=== PATIENT | female | born 1965 | race Caucasian/White ===

== ENCOUNTER 2018-03-27 10:31 | Emergency (ER) | payer SELFPAY ==
[2018-03-27] MEDS ORDERED: ALBUTEROL 2.5 MG/3 ML NEB SOL ONE (11:30)
[2018-03-27] MEDS ORDERED: IPRATROPIUM BROM 0.5MG/2.5ML ONE (11:30)
[2018-03-27] MEDS ORDERED: HYDROCODONE/CHLORPHEN 5 ML/OSYR ONE (11:31)
--- NOTE | 2018-03-27 12:38 | ER ---
Nurse's Notes [facility] Name: Melba Henry Age: 53 yrs Sex: Female : 1965 Arrival Date: 03/27/2018 Time: 10:34 Bed 7 Private MD: Diagnosis: Chronic sinusitis Presentation: 03/27 10:48 Presenting complaint: Patient states: Cough and shortness of breath for the past year. aj1 States that she has seen several doctors and had sinus surgery, but none of it has helped. When she woke up this morning she felt like her lungs were burning and felt more short of breath than usual. Transition of care: patient was not received from another setting of care. Onset of symptoms was 2016. Risk Assessment: Do you want to hurt yourself or someone else? Patient reports no desire to harm self or others. Initial Sepsis Screen: Does the patient meet any 2 criteria? No. Patient's initial sepsis screen is negative. Does the patient have a suspected source of infection? No. Patient's initial sepsis screen is negative. Care prior to arrival: None. 10:48 Method Of Arrival: Ambulatory aj1 10:48 Acuity: MEGHNA 3 aj1 Triage Assessment: 10:54 General: Appears in no apparent distress. uncomfortable, Behavior is calm, cooperative, aj1 appropriate for age. Pain: Denies pain. Neuro: Level of Consciousness is awake, alert, obeys commands, Speech is normal. Cardiovascular: Patient's skin is warm and dry. Respiratory: Reports shortness of breath cough that is persistent for the past year Airway is patent Respiratory effort is even, unlabored, Respiratory pattern is regular, symmetrical, Onset: The symptoms/episode began/occurred one year ago. Derm: Skin is pink, warm \T\ dry. normal. Musculoskeletal: Circulation, motion, and sensation intact. 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 - Social history:: Smoking status: Patient/guardian denies using tobacco. - Ebola Screening: : Patient denies travel to an Ebola-affected area in the 21 days before illness onset. Screenin:15 Abuse screen: Denies threats or abuse. Denies injuries from another. Nutritional hb screening: No deficits noted. Tuberculosis screening: No symptoms or risk factors identified. Fall Risk None identified. Assessment: 11:08 General: Appears in no apparent distress. Behavior is calm, cooperative, agitated, sm4 Smells of Reports Denies. Pain: Denies pain. Neuro: No deficits noted. Cardiovascular: No deficits noted. Respiratory: Reports shortness of breath at rest on exertion cough that is Airway is patent Trachea midline Respiratory effort is unlabored, Respiratory pattern is regular, Sputum is thick, Breath sounds with wheezes mild wheezing noted throughout all lobes w/ expiration. GI: No deficits noted. : No deficits noted. EENT: Reports nasal congestion Denies Parent/caregiver reports the patient having. Derm: No deficits noted. Musculoskeletal: No deficits noted. 11:30 Reassessment: Patient appears in no apparent distress at this time. No changes from sv previously documented assessment. Patient and/or family updated on plan of care and expected duration. Pain level reassessed. Patient is alert, oriented x 3, equal unlabored respirations, skin warm/dry/pink. Respiratory: Respiratory effort is even, unlabored, Respiratory pattern is regular, symmetrical, Breath sounds with wheezes bilaterally. 11:35 Reassessment: Box of kleenex given to pt per request. sv 12:17 Reassessment: Patient appears in no apparent distress at this time. No changes from sv previously documented assessment. Patient and/or family updated on plan of care and expected duration. Pain level reassessed. Patient is alert, oriented x 3, equal unlabored respirations, skin warm/dry/pink. Patient states symptoms have not improved. Vital Signs: 10:54 BP 106 / 77; Pulse 87; Resp 18; Temp 98.5(TE); Pulse Ox 97% on R/A; Weight 54.43 kg aj1 (R); Height 5 ft. 1 in. (154.94 cm) (R); Pain 0/10; 12:17 BP 107 / 71; Pulse 86; Resp 18; Pulse Ox 97% on R/A; sv 10:54 Body Mass Index 22.67 (54.43 kg, 154.94 cm) aj1 ED Course: 10:34 Patient arrived in ED. jb7 10:51 Triage completed. aj1 10:54 Arm band placed on Patient placed in an exam room. aj1 11:00 Patient has correct armband on for positive identification. Placed in gown. Bed in low hb position. Call light in reach. Side rails up X 1. 11:06 Fernando Escobar NP is PHCP. pm1 11:06 Sunny Handley MD is Attending Physician. pm1 11:32 Charo Bai, DAVID is Primary Nurse. sv 11:32 Initial Neb Treatment Given as ordered Patient was instructed and evaluated on sv procedure Patient tolerated procedure well without adverse effect. 11:37 Awaiting for x-ray. sv 12:13 X-ray completed. Patient tolerated procedure well. Patient moved back from radiology. kw 12:14 Chest Pa And Lat (2 Views) XRAY In Process Unspecified. EDMS 12:15 Patient moved back from radiology. sv 13:04 No provider procedures requiring assistance completed. Patient did not have IV access hb during this emergency room visit. Administered Medications: 11:32 Drug: Albuterol 2.5 mg Route: Inhalation; hb 11:32 Drug: AtroVENT Aerosol 0.5 mg Route: Inhalation; hb 11:32 Drug: Tussionex Pennkinetic ER 5 ml Route: PO; hb 11:52 Follow up: Response: No adverse reaction sv Outcome: 12:37 Discharge ordered by MD. pm1 13:04 Discharged to home ambulatory, with significant other. hb 13:04 Condition: stable 13:04 Discharge instructions given to patient, significant other, Instructed on discharge instructions, follow up and referral plans. medication usage, Demonstrated understanding of instructions, follow-up care, medications, Prescriptions given X 2. 13:04 Patient left the ED. hb Signatures: Dispatcher [employer] EDMS Selma Lemon RN RN aj1 Charo Bai, DAVID HERNANDEZ Sharmin Perez Fernando Escobar NP TAXATION CONSULTANT pm1 Montse Gregorio RN RN Robby Silver jb7 Iraj Douglass RN RN sm4
--- NOTE | 2018-03-27 12:38 | EDPHYS ---
Physician Documentation [facility] Name: Melba Henry Age: 53 yrs Sex: Female : 1965 Arrival Date: 03/27/2018 Time: 10:34 Bed 7 Private MD: ED Physician Sunny Handley HPI: 03/27 12:00 This 53 yrs old Female presents to ER via Ambulatory with complaints of pm1 Breathing Difficulty. 12:00 The patient has shortness of breath at rest. Onset: The symptoms/episode began/occurred pm1 1 year(s) ago. Duration: The symptoms are continuous. The patient's shortness of breath has no apparent modifying factors. Associated signs and symptoms: Pertinent positives: non-productive cough, productive cough, sinus congestion, Pertinent negatives: chest pain, nausea, vomiting. Severity of symptoms: in the emergency department the symptoms are worse. The patient has experienced similar episodes in the past, chronically. The patient has been recently seen by a physician: ENT about 1 month ago, cleared sinuses with procedure and patient was without any symptoms for 2 weeks. However symptoms returned and have worsened for the past two weeks. 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 - Social history:: Smoking status: Patient/guardian denies using tobacco. - Ebola Screening: : Patient denies travel to an Ebola-affected area in the 21 days before illness onset. ROS: 12:00 Constitutional: Negative for fever, chills, and weight loss, Eyes: Negative for injury, pm1 pain, redness, and discharge. 12:00 Neck: Negative for injury, pain, and swelling, Cardiovascular: Negative for chest pain, palpitations, and edema. 12:00 Abdomen/GI: Negative for abdominal pain, nausea, vomiting, diarrhea, and constipation, Back: Negative for injury and pain, : Negative for injury, bleeding, discharge, and swelling, MS/Extremity: Negative for injury and deformity, Skin: Negative for injury, rash, and discoloration, Neuro: Negative for headache, weakness, numbness, tingling, and seizure. 12:00 ENT: Positive for sinus congestion, sinus pain, Negative for sore throat, difficulty swallowing, difficulty handling secretions. 12:00 Respiratory: Positive for cough, Negative for shortness of breath, sputum production, wheezing. Exam: 12:00 Constitutional: This is a well developed, well nourished patient who is awake, alert, pm1 and in no acute distress. Head/Face: Normocephalic, atraumatic. Eyes: Pupils equal round and reactive to light, extra-ocular motions intact. Lids and lashes normal. Conjunctiva and sclera are non-icteric and not injected. Cornea within normal limits. Periorbital areas with no swelling, redness, or edema. 12:00 Neck: Trachea midline, no thyromegaly or masses palpated, and no cervical lymphadenopathy. Supple, full range of motion without nuchal rigidity, or vertebral point tenderness. No Meningismus. Chest/axilla: Normal chest wall appearance and motion. Nontender with no deformity. No lesions are appreciated. Cardiovascular: Regular rate and rhythm with a normal S1 and S2. No gallops, murmurs, or rubs. Normal PMI, no JVD. No pulse deficits. Respiratory: Lungs have equal breath sounds bilaterally, clear to auscultation and percussion. No rales, rhonchi or wheezes noted. No increased work of breathing, no retractions or nasal flaring. Abdomen/GI: Soft, non-tender, with normal bowel sounds. No distension or tympany. No guarding or rebound. No evidence of tenderness throughout. Back: No spinal tenderness. No costovertebral tenderness. Full range of motion. Skin: Warm, dry with normal turgor. Normal color with no rashes, no lesions, and no evidence of cellulitis. MS/ Extremity: Pulses equal, no cyanosis. Neurovascular intact. Full, normal range of motion. 12:00 ENT: External ear(s): are unremarkable, Ear canal(s): are normal, TM's: are normal, Nose: nasal drainage, and is seen coming from both nares, that is clear, Mouth: is normal. 12:00 Neuro: Orientation: is normal, Motor: is normal, Sensation: is normal, no obvious gross deficits. Vital Signs: 10:54 BP 106 / 77; Pulse 87; Resp 18; Temp 98.5(TE); Pulse Ox 97% on R/A; Weight 54.43 kg aj1 (R); Height 5 ft. 1 in. (154.94 cm) (R); Pain 0/10; 12:17 BP 107 / 71; Pulse 86; Resp 18; Pulse Ox 97% on R/A; sv 10:54 Body Mass Index 22.67 (54.43 kg, 154.94 cm) [facility] MDM: 11:07 Patient medically screened. pm1 12:33 Data reviewed: vital signs. Data interpreted: Pulse oximetry: on room air is 97 %. pm1 Interpretation: normal. Counseling: I had a detailed discussion with the patient and/or guardian regarding: the historical points, exam findings, and any diagnostic results supporting the discharge/admit diagnosis, radiology results, the need for outpatient follow up, to return to the emergency department if symptoms worsen or persist or if there are any questions or concerns that arise at home. 12:33 ED course: Patient currently taking medrol dose corina from ENT without improvement. Will pm1 give the augmentin for sinusitis and patient will follow up with ENT. 03/27 11:24 Order name: Chest Pa And Lat (2 Views) XRAY; Complete Time: 12:55 pm1 Administered Medications: 11:32 Drug: Albuterol 2.5 mg Route: Inhalation; hb 11:32 Drug: AtroVENT Aerosol 0.5 mg Route: Inhalation; hb 11:32 Drug: Tussionex Pennkinetic ER 5 ml Route: PO; hb 11:52 Follow up: Response: No adverse reaction sv Disposition: 17:19 Co-signature as Attending Physician, Sunny Handley MD I agree with the assessment and kdr plan of care. Disposition: 03/27/18 12:37 Discharged to Home. Impression: Chronic sinusitis. - Condition is Stable. - Discharge Instructions: Sinusitis, Adult. - Prescriptions for Augmentin 875- 125 mg Oral Tablet - take 1 tablet by ORAL route every 12 hours for 10 days; 20 tablet. Guaifenesin AC 10- 100 mg/5 mL Oral Liquid - take 10 milliliter by ORAL route every 4 hours As needed; 240 milliliter. - Medication Reconciliation Form, Thank You Letter, Antibiotic Education, Prescription Opioid Use form. - Follow up: Emergency Department; When: As needed; Reason: Worsening of condition. Follow up: Private Physician; When: 2 - 3 days; Reason: Recheck today's complaints, Continuance of care, Re-evaluation by your physician. - Problem is new. - Symptoms have improved. Signatures: Dispatcher [employer] EDMS Selma Lemon RN RN aj1 Sunny Handley MD MD kdr Marinas, Patrick, NP LIBRARY HISTORIAN pm1 Montse Gregorio RN RN Charo Bai RN sv Corrections: (The following items were deleted from the chart) 12:38 12:37 03/27/2018 12:37 Discharged to Home. Impression: Acute sinusitis. Condition is pm1 Stable. Forms are Medication Reconciliation Form, Thank You Letter, Antibiotic Education, Prescription Opioid Use. Follow up: Emergency Department; When: As needed; Reason: Worsening of condition. Follow up: Private Physician; When: 2 - 3 days; Reason: Recheck today's complaints, Continuance of care, Re-evaluation by your physician. Problem is new. Symptoms have improved. pm1 13:04 12:38 03/27/2018 12:37 Discharged to Home. Impression: Chronic sinusitis. Condition is hb Stable. Forms are Medication Reconciliation Form, Thank You Letter, Antibiotic Education, Prescription Opioid Use. Follow up: Emergency Department; When: As needed; Reason: Worsening of condition. Follow up: Private Physician; When: 2 - 3 days; Reason: Recheck today's complaints, Continuance of care, Re-evaluation by your physician. Problem is new. Symptoms have improved. pm1
--- NOTE | 2018-03-27 12:39 | RAD REPORT ---
EXAM DESCRIPTION: RAD - Chest Pa And Lat (2 Views) - 03/27/2018 12:14 pm CLINICAL HISTORY: COUGH Chest pain. COMPARISON: Chest Pa And Lat (2 Views) dated 10/03/2017; CHEST SINGLE VIEW dated 03/12/2014; CHEST SIN GLE VIEW dated 06/23/2009 FINDINGS: The lungs are clear. The heart is normal in size. No displaced fractures. IMPRESSION: No acute or concerning finding suspected.
== END 2018-03-27 13:04 | disposition home or self-care (01) ==
LOC: ER 10:31
DX: J32.9 Chronic sinusitis, unspecified (principal); R09.81 Nasal congestion; E03.9 Hypothyroidism, unspecified; R05 Cough
CPT/HCPCS: 71046; 99284

== ENCOUNTER 2018-10-21 07:38 | Day surgery (SDC) | payer OTHER ==
[2018-10-21] MEDS ORDERED: Ringers Lactate 1,000 ML IV ONE (08:14)
[2018-10-21] MEDS ORDERED: PROPOFOL 200 MG/20 ML VIAL IV ONE (09:18)
[2018-10-21] MEDS ORDERED: LIDOCAINE 1% MPF 5 ML VIAL ONE ×2 (09:18→09:34)
[2018-10-21] MEDS ORDERED: ONDANSETRON 4 MG/2 ML VIAL ONE (09:37)
--- NOTE | 2018-10-23 03:41 | OP ---
Surgeon: Rayo Calderón MD Procedure To Be Performed: Colonoscopy. Performing Physician: Rayo Calderón M.D. Indication For Procedure: Modification of bowel habits, diarrhea, lower abdominal pain. Plan For Anesthesia: Monitored anesthesia care. Complexity: Average. Technique: After obtaining informed consent from the patient and explaining risks and complications, which include, but are not limited to bleeding, infection, perforation, and anesthesia complication, the patient was placed in a left lateral position and sedation was given. From then on, a digital r ectal exam was performed. From then on, the scope was advanced into the rectum and carefully guided up till the terminal ileum. The cecum was identified by the appendiceal orifice and ileocecal valve. The scope was gradually withdrawn while carefully examining the mucosa. Scope withdrawal time was 14 minutes. Quality of prep according to Huntington prep score was 2 + 2 + 2, which is equal to 6/9, chuy r. Findings: The terminal ileum appeared normal. Few diverticula seen in the sigmoid. In the rectum, a diminutive polyp was seen. This was removed with cold forceps. Retroflexion revealed internal hem orrhoids grade 1. No other significant colonic pathology seen. Random biopsies were taken to rule o ut microscopic colitis. Plan: 1.Await pathology results. 2.Follow up in the GI Clinic. 3.EGD with small bowel biopsies as planned. US/MODL Voice ID: [id number] Report ID: [id number]
== END 2018-10-21 10:32 | disposition home or self-care (01) ==
LOC: ENDO 07:38
PROVIDERS: ATTEND Internal Medicine Gastroenterology
PROC: 0DBE8ZX Excision of Large Intestine, Via Natural or Artificial Opening Endoscopic, Diagnostic (ICD-10-PCS; 2018-10-21)
PROC: 0DBP8ZX Excision of Rectum, Via Natural or Artificial Opening Endoscopic, Diagnostic (ICD-10-PCS; principal; 2018-10-21 08:45)
DX: K62.1 Rectal polyp (principal); K57.30 Diverticulosis of large intestine without perforation or abscess without bleeding; K64.0 First degree hemorrhoids; K21.9 Gastro-esophageal reflux disease without esophagitis; Z87.891 Personal history of nicotine dependence; Z79.899 Other long term (current) drug therapy
CPT/HCPCS: 88305; J2405; J2704

== ENCOUNTER 2018-10-24 12:53 | Day surgery (SDC) | payer OTHER ==
[2018-10-24] MEDS ORDERED: Ringers Lactate 1,000 ML IV ONE (13:07)
[2018-10-24] MEDS ORDERED: LIDOCAINE 1% MPF 5 ML VIAL ONE (14:51)
[2018-10-24] MEDS ORDERED: PROPOFOL 200 MG/20 ML VIAL IV ONE ×2 (14:51)
[2018-10-24] MEDS ORDERED: ONDANSETRON 4 MG/2 ML VIAL ONE (14:52)
--- NOTE | 2018-10-25 03:00 | OP ---
Date of Procedure: 10/24/2018 Surgeon: Rayo Calderón MD Procedure Performed: Esophagogastroduodenoscopy. Performing Physician: Rayo Calderón M.D. Indication For Procedure: Evaluate for chronic reflux, modification of bowel habits, and chronic cou gh, which is suspected to be related to severe acid reflux disease. Plan For Anesthesia: Monitored anesthesia care. Complexity: Average. Technique: After obtaining informed consent from the patient and explaining risks and complications which include, but are not limited to bleeding, infection, perforation, and anesthesia complication, the patient was placed in the left lateral position and sedation was given. From then on, the scope was advanced into the mouth and carefully guided up to the third portion of the duodenum. After the completion of examination, scope and equipment were withdrawn and procedure was terminated in a safe manner. Findings: Esophagus: From proximal to distal esophagus, no abnormality was seen. There was no evid ence of esophagitis at all. No narrowing appreciated. The distal esophagus was completely normal. No evidence of significant hiatal hernia. The Z-line was regular at 37 cm without any evidence of er osive damage to the distal esophagus. Esophageal biopsies were taken as well. Stomach: Body appear ed normal. Minimal patchy erythema was seen in the antrum. Antral and body biopsies were taken. Du odenum: The bulb, second, and third portion appeared normal. Small bowel biopsies were taken due to absence of other pathology into the bowels to rule out celiac disease. Complications: None. Tolerance To Anesthesia: Excellent. Postoperative Diagnoses: Minimal gastritis. No evidence of erosive acid reflux disease. Plan: 1.Await pathology results. 2.Follow up with ENT and allergy/water engineer. 3.Continue PPI at current dose. 4.Returned to GI clinic in 2 weeks. US/MODL Voice ID: [id number] Report ID: [id number]
== END 2018-10-24 15:35 | disposition home or self-care (01) ==
LOC: OR 12:53
PROVIDERS: ATTEND Internal Medicine Gastroenterology
PROC: 0DB78ZX Excision of Stomach, Pylorus, Via Natural or Artificial Opening Endoscopic, Diagnostic (ICD-10-PCS; 2018-10-24)
PROC: 0DB58ZX Excision of Esophagus, Via Natural or Artificial Opening Endoscopic, Diagnostic (ICD-10-PCS; 2018-10-24)
PROC: 0DB98ZX Excision of Duodenum, Via Natural or Artificial Opening Endoscopic, Diagnostic (ICD-10-PCS; principal; 2018-10-24 14:00)
DX: K29.80 Duodenitis without bleeding (principal); K29.50 Unspecified chronic gastritis without bleeding; K21.0 Gastro-esophageal reflux disease with esophagitis; Z87.891 Personal history of nicotine dependence; Z79.899 Other long term (current) drug therapy
CPT/HCPCS: 88305; 88312; J2405; J2704

== ENCOUNTER 2018-11-18 02:42 | Emergency (ER) | payer OTHER ==
--- OUTSIDE RECORDS SUMMARY | 2018-11-18 02:45 | XMS REPORT | Clinical Summary ---
:1965 Author Organization [facility] Address [address] [place] [address] Care Team Providers Name Role Phone Dante Murrieta MD Primary Care Provider Allergies Active Allergy Reactions Severity Noted Date Comments Ciprofloxacin Other (See Comments) 11/06/2018 "SKIN CRAWLING AND INABILITY TO RELAX" Medications Medication Sig Dispensed Refills Start Date End Date Status albuterol INHALE THREE (3) 6 10/31/2018 Active (ACCUNEB) 2.5 mg MLS VIA NEBULIZER /3 mL (0.083 %) EVERY FOUR (4) nebulizer solution HOURS NEEDED FOR WHEEZING OR SHORTNESS OF BREATH. PROVENTIL HFA 90 INHALE TWO (2) 6 10/31/2018 Active mcg/actuation PUFF(S) BY MOUTH inhaler EVERY SIX HOURS NEEDED FOR WHEEZING OR SHORTNESS OF BREATH. fluticasone INSTILL TWO (2) 6 10/31/2018 Active (FLONASE) 50 SPRAY(S) INTO mcg/actuation EACH NOSTRIL ONCE nasal spray A DAY. LORAZepam (ATIVAN) TAKE ONE (1) 2 10/31/2018 Active 2 MG tablet TABLET(S) BY MOUTH TWICE A DAY NEEDED FOR ANXIETY. pantoprazole TAKE ONE (1) 1 11/03/2018 Active (PROTONIX) 40 MG TABLET(S) BY EC tablet MOUTH ONCE A DAY. DM/p-ephed/acetami Take by mouth 0 Active noph/doxylam nightly. (NYQUIL D ORAL) famotidine Take 20 mg by 0 Active (PEPCID) 20 MG mouth daily. tablet ascorbate calcium Take 1 tablet by 0 Active (VITAMIN C ORAL) mouth daily. multivitamin Take 1 tablet by 0 Active (THERAGRAN) tablet mouth daily. acetaminophen-code Take 1 tablet by 40 tablet 0 11/17/2018 Active ine (TYLENOL WITH mouth every 4 9 CODEINE #3) 300-30 (four) hours as mg per tablet needed for mild pain for up to 7 days. cephalexin Take 1 capsule 30 capsule 0 11/17/2018 Active (KEFLEX) 500 MG (500 mg total) by 9 capsule mouth 3 (three) times a day for 10 days. promethazine Insert 1 10 suppository 0 11/17/2018 Active (PHENERGAN) 25 MG suppository (25 9 suppository mg total) into the rectum every 6 (six) hours as needed for nausea or vomiting for up to 30 days. Active Problems No known active problems Encounters Date Type Specialty Care Team Description 11/17/2018 Surgery General Surgery Mary Beth Alaniz BILATERAL MD [facility] CAPSULECTOMY WITH IMPLANT REMOVAL, BILATERAL MASTOPEXY 11/17/2018 Anesthesia Event General Surgery Ruth Lamb NP 11/17/2018 Hospital Encounter General Surgery Mary Beth Alaniz Encounter for MD [facility] cosmetic surgery 11/06/2018 Pre-Admit Testing Pre-Admission Mary Beth Alaniz Preop testing Appointment Testing MD [facility] (Primary Dx) after 11/17/2017 Family History Medical History Relation Name Comments Dementia Father Parkinsonism Father Heart disease Mother Stroke Mother Thyroid disease Mother Relation Name Status Comments Father Mother Alive Social History Tobacco Use Types Packs/Day Years Used Date Former Smoker Cigarettes 1 1979 - 1996 Smokeless Tobacco: Never Used Alcohol Use Drinks/Week oz/Week Comments No Alcohol Habits Answer Date Recorded How often do you have a drink containing alcohol? Never 11/06/2018 How many drinks containing alcohol do you have on a typical Not asked day when you are drinking? How often do you have six or more drinks on one occasion? Not asked Sex Assigned at Date Recorded Not on file Job Start Date Occupation Industry Not on file Not on file Not on file Travel History Travel Start Travel End No recent travel history available. Last Filed Vital Signs Vital Sign Reading Time Taken Blood Pressure 112/60 11/17/2018 12:45 PM [facility]NA[facility] Pulse 98 11/17/2018 12:45 PM MA[facility] Temperature 36.6 C (97.8 F) 11/17/2018 12:45 PM MANAGER EMS Respiratory Rate 15 11/17/2018 1:15 PM MANAGER EMS Oxygen Saturation 96% 11/17/2018 12:45 PM MANAGER EMS Inhaled Oxygen Concentration - - Weight 46.7 kg (102 lb 16 oz) 11/06/2018 1:29 PM MANAGER EMS Height 154.9 cm (5' 1") 11/06/2018 1:29 PM MANAGER EMS Body Mass Index 19.46 11/06/2018 1:29 PM MANAGER EMS Plan of Treatment Health Maintenance Due Date Last Done Comments CERVICAL CANCER SCREENING 1988 BREAST CANCER SCREENING 2017 COLON CANCER SCREENING 2017 SHINGLES VACCINES (#1) 2017 INFLUENZA VACCINE 04/16/2018 Procedures Procedure Name Priority Date/Time Associated Diagnosis Comments OK AN ELECTIVE Routine 11/17/2018 8:30 AM ENDOTRACHEAL AIRWAY MANAGER EMS Procedure Note - Murray Camargo CRNA - 11/17/2018 8:30 AM MANAGER EMS Airway Date/Time: 11/17/2018 8:30 AM Performed by: Murray Camargo CRNA Authorized by: Calderon Quinn MD Location: OR Urgency: Elective Difficult Airway: No Anesthesiologist: Calderon Quinn MD Resident/PLATE SENSITIZER/AA: Murray Camargo CRNA Performed by: resident/KAREN/AA Preoxygenated with 100% O2: Yes C-spine Precautions Maintained Throughout: Yes Mask Ventilation: Easy mask Final Airway Type: Endotracheal airway Final Endotracheal Airway: ETT Cuffed: Yes Technique Used: Direct laryngoscopy Insertion Site: Oral Blade Type: Ochoa Laryngoscope Blade/Videolaryngoscope Blade Size: 2 ETT Size (mm): 7.0 Cuff at minimum occlusion pressure: Yes Measured from: Lips ETT to Lips (cm): 21 Placement Verified by: CO2 detection, direct visualization and equal breath sounds Laryngoscopic view: Grade I - full view of glottis Rapid Sequence Induction (RSI): No Modified RSI: No Number of Attempts at Approach: 1 POC GLUCOSE Routine 11/17/2018 6:56 AM Results for this MANAGER EMS procedure are in the results section. ESTIMATED GFR Routine 11/06/2018 2:35 PM Results for this MANAGER EMS procedure are in the results section. BASIC METABOLIC PANEL Routine 11/06/2018 2:35 PM Preop testing Results for this MANAGER EMS procedure are in the results section. HC COMPLETE BLD COUNT Routine 11/06/2018 2:35 PM Preop testing Results for this W/AUTO DIFF MANAGER EMS procedure are in the results section. after 11/17/2017 Results POC glucose (11/17/2018 6:56 AM MANAGER EMS) POC glucose 90 65 - 99 mg/dL [facility] Comment: HOSPITAL Meter ID: [id number] Dispatch Associate: Malissa Colin Performing Organization Address City/[facility]/Zipcode Phone Number [facility] DEPARTMENT OF PATHOLOGY [address] [place] [address] Estimated GFR (11/06/2018 2:35 PM MANAGER EMS) Estimated GFR >=90 mL/min/1.73 m2 [facility] Comment: [facility] CatergoryUnitsInterpretation G1 >=90 Normal or high G2 60-89Mildly decreased [id number] to moderately decreased [id number] to severely decreased G4 15-29Severely decreased G5 <15Kidney failure The eGFR was calculated using the Chronic Kidney Disease Epidemiology Collaboration (CKD-EPI) equation. Interpretation is based on recommendations of the National Kidney Foundation-Kidney Disease Outcomes Quality Initiative (NKF-KDOQI) published in 2014. Specimen Plasma specimen Performing Organization Address [facility] Phone Number [facility] DEPARTMENT OF PATHOLOGY [address] [place] [address] CBC with platelet and differential (11/06/2018 2:35 PM MANAGER EMS) WBC 5.2 4.5 - 11.0 k/uL [facility] RBC 4.66 4.20 - 5.50 m/uL [facility] HGB 14.4 12.0 - 16.0 g/dL [facility] HCT 42.9 37.0 - 47.0 % [facility] MCV 92.1 82.0 - 100.0 fL [facility] MCH 30.9 27.0 - 34.0 pg [facility] MCHC 33.6 31.0 - 37.0 g/dL [facility] RDW - SD 41.7 37.0 - 55.0 fL [facility] MPV 9.8 6.9 - 11.0 fL [facility] Platelet count 318 150 - 400 K/uL [facility] Nucleated RBC 0.00 /100 WBC [facility] Neutrophils 53.7 39.0 - 69.0 % [facility] Lymphocytes 36.0 25.0 - 45.0 % [facility] Monocytes 6.0 0.0 - 10.0 % [facility] Eosinophils 3.1 0.0 - 5.0 % [facility] Basophils 1.0 0.0 - 1.0 % [facility] Immature granulocytes 0.2 0.0 - 1.0 % [facility] Specimen Blood Performing Organization Address City/State/Zipcode Phone Number [facility] DEPARTMENT OF PATHOLOGY [address] [place] [address] Basic metabolic panel (11/06/2018 2:35 PM MANAGER EMS) Sodium 136 135 - 148 mEq/L [facility] Potassium 4.9 3.5 - 5.0 mEq/L [facility] Chloride 100 98 - 112 mEq/L [facility] CO2 27 24 - 31 mEq/L [facility] Anion gap 9@ANIO 7 - 15 mEq/L [facility] BUN 10 6 - 20 mg/dL [facility] Creatinine 0.61 0.50 - 0.90 mg/dL [facility] Glucose 95 65 - 99 mg/dL [facility] Calcium 9.9 8.3 - 10.2 mg/dL [facility] Specimen Plasma specimen Performing Organization Address City/State/Zipcode Phone Number [facility] DEPARTMENT OF PATHOLOGY [id number] [place] [address] after 11/17/2017 Advance Directives Patient has advance care planning documents on file. For more information, please contact:[address] [address]
--- NOTE | 2018-11-18 03:42 | EDPHYS ---
Physician Documentation [facility] Name: Melba Henry Age: 53 yrs Sex: Female : 1965 Arrival Date: 11/18/2018 Time: 02:46 Bed 7 Private MD: Dante Murrieta E ED Physician Jorge Serrato HPI: 11/18 02:59 This 53 yrs old Female presents to ER via Unassigned with complaints of mohini Urinary Retention. 02:59 The patient presents with urinary symptoms, hesitancy. Modifying factors: The symptoms mohini are alleviated by nothing. Associated signs and symptoms: Pertinent positives: cramping, retention. Severity of symptoms: At their worst the symptoms were mild, in the emergency department the symptoms are unchanged. 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 - Social history:: Smoking status: Patient/guardian denies using tobacco. - Family history:: not pertinent. - Ebola Screening: : No symptoms or risks identified at this time. ROS: 02:59 Constitutional: Negative for fever, chills, and weight loss, Eyes: Negative for injury, mohini pain, redness, and discharge, ENT: Negative for injury, pain, and discharge, Neck: Negative for injury, pain, and swelling, Cardiovascular: Negative for chest pain, palpitations, and edema, Respiratory: Negative for shortness of breath, cough, wheezing, and pleuritic chest pain, Back: Negative for injury and pain, : Negative for injury, bleeding, discharge, and swelling, MS/Extremity: Negative for injury and deformity, Skin: Negative for injury, rash, and discoloration, Neuro: Negative for headache, weakness, numbness, tingling, and seizure, Psych: Negative for depression, anxiety, suicide ideation, homicidal ideation, and hallucinations, Allergy/Immunology: Negative for hives, rash, and allergies, Endocrine: Negative for neck swelling, polydipsia, polyuria, polyphagia, and marked weight changes, Hematologic/Lymphatic: Negative for swollen nodes, abnormal bleeding, and unusual bruising. 02:59 Abdomen/GI: Positive for abdominal pain. Exam: 02:59 Constitutional: This is a well developed, well nourished patient who is awake, alert, mohini and in no acute distress. Head/Face: Normocephalic, atraumatic. Eyes: Pupils equal round and reactive to light, extra-ocular motions intact. Lids and lashes normal. Conjunctiva and sclera are non-icteric and not injected. Cornea within normal limits. Periorbital areas with no swelling, redness, or edema. ENT: Nares patent. No nasal discharge, no septal abnormalities noted. Tympanic membranes are normal and external auditory canals are clear. Oropharynx with no redness, swelling, or masses, exudates, or evidence of obstruction, uvula midline. Mucous membranes moist. Neck: Trachea midline, no thyromegaly or masses palpated, and no cervical lymphadenopathy. Supple, full range of motion without nuchal rigidity, or vertebral point tenderness. No Meningismus. Chest/axilla: Normal chest wall appearance and motion. Nontender with no deformity. No lesions are appreciated. Cardiovascular: Regular rate and rhythm with a normal S1 and S2. No gallops, murmurs, or rubs. Normal PMI, no JVD. No pulse deficits. Respiratory: Lungs have equal breath sounds bilaterally, clear to auscultation and percussion. No rales, rhonchi or wheezes noted. No increased work of breathing, no retractions or nasal flaring. Abdomen/GI: Soft, non-tender, with normal bowel sounds. No distension or tympany. No guarding or rebound. No evidence of tenderness throughout. Back: No spinal tenderness. No costovertebral tenderness. Full range of motion. Skin: Warm, dry with normal turgor. Normal color with no rashes, no lesions, and no evidence of cellulitis. MS/ Extremity: Pulses equal, no cyanosis. Neurovascular intact. Full, normal range of motion. Neuro: Awake and alert, GCS 15, oriented to person, place, time, and situation. Cranial nerves II-XII grossly intact. Motor strength 5/5 in all extremities. Sensory grossly intact. Cerebellar exam normal. Normal gait. Psych: Awake, alert, with orientation to person, place and time. Behavior, mood, and affect are within normal limits. 02:59 : CVA tenderness, is absent, Bladder: distension, that is moderate. Vital Signs: 03:10 BP 131 / 76; Pulse 105; Resp 16; Temp 97.9; Pulse Ox 98% on R/A; Weight 45.81 kg (R); aa1 Height 5 ft. 1 in. (154.94 cm); Pain 6/10; 03:10 Body Mass Index 19.08 (45.81 kg, 154.94 cm) [facility] MDM: 02:49 Patient medically screened. [facility] 02:59 Data reviewed: vital signs, nurses notes, lab test result(s). [facility] 11/18 03:41 Order name: Urine Dipstick--Ancillary (enter results) nc 11/18 02:58 Order name: Urine Dipstick-Ancillary (obtain specimen); Complete Time: 03:33 [facility] 11/18 02:58 Order name: Bladder Scanner; Complete Time: 03:04 [facility] 11/18 03:33 Order name: Harp Leg Bag; Complete Time: 03:33 aa Administered Medications: No medications were administered Disposition: 11/18/18 03:42 Discharged to Home. Impression: Retention of urine, Retention of urine, unspecified. - Condition is Stable. - Discharge Instructions: Harp Catheter Care, Adult, Acute Urinary Retention, Female, Harp Catheter Care, Adult, [id number]. - Medication Reconciliation Form, Thank You Letter, Antibiotic Education, Prescription Opioid Use form. - Follow up: Dante Murrieta; When: 2 - 3 days; Reason: Recheck today's complaints, Continuance of care, Re-evaluation by your physician. Follow up: Christo Hugo; When: 2 - 3 days; Reason: Recheck today's complaints, Re-evaluation by your physician. - Problem is new. - Symptoms have improved. Signatures: Dispatcher [employer] EDMS Tia Lowery RN RN aa1 Jorge Serrato MD MD cha Corrections: (The following items were deleted from the chart) 04:07 03:42 11/18/2018 03:42 Discharged to Home. Impression: Retention of urine; Retention of aa1 urine, unspecified. Condition is Stable. Discharge Instructions: Harp Catheter Care, Adult, Acute Urinary Retention, Female, Harp Catheter Care, Adult, [id number]. Forms are Medication Reconciliation Form, Thank You Letter, Antibiotic Education, Prescription Opioid Use. Follow up: Dante Murrieta; When: 2 - 3 days; Reason: Recheck today's complaints, Continuance of care, Re-evaluation by your physician. Follow up: Christo Hugo; When: 2 - 3 days; Reason: Recheck today's complaints, Re-evaluation by your physician. Problem is new. Symptoms have improved. mohini
--- NOTE | 2018-11-18 03:42 | ER ---
Nurse's Notes [facility] Name: Melba Henry Age: 53 yrs Sex: Female : 1965 Arrival Date: 11/18/2018 Time: 02:46 Bed 7 Private MD: Dante Murrieta E Diagnosis: Retention of urine;Retention of urine, unspecified Presentation: 11/18 02:58 Presenting complaint: Patient states: she had surgery yesterday to remove her breast aa1 implants and they inserted a urinary catheter while she was under anesthesia and she has not been able to urinate since. States, "the nurses knew I wasn't able to urinate but they let me go home anyway." Bladder scan during triage exam shows 561 ml retained urine. Transition of care: patient was not received from another setting of care. Onset of symptoms was November 17, 2018. Risk Assessment: Do you want to hurt yourself or someone else? Patient reports no desire to harm self or others. Initial Sepsis Screen: Does the patient meet any 2 criteria? No. Patient's initial sepsis screen is negative. Does the patient have a suspected source of infection? No. Patient's initial sepsis screen is negative. Care prior to arrival: None. 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 - Social history:: Smoking status: Patient/guardian denies using tobacco. - Family history:: not pertinent. - Ebola Screening: : No symptoms or risks identified at this time. Screenin:12 Abuse screen: Denies threats or abuse. Denies injuries from another. Nutritional aa1 screening: No deficits noted. Tuberculosis screening: No symptoms or risk factors identified. Fall Risk None identified. Assessment: 03:12 General: Appears in no apparent distress. uncomfortable, slender, Behavior is calm, aa1 cooperative, appropriate for age. Pain: Complains of pain in suprapubic area Quality of pain is described as pressure. Neuro: Level of Consciousness is awake, alert, obeys commands, Oriented to person, place, time, situation, Moves all extremities. Gait is steady. Respiratory: Airway is patent Respiratory effort is even, unlabored, Respiratory pattern is regular, symmetrical. GI: No signs and/or symptoms were reported involving the gastrointestinal system. : Reports inability to void, since surgery yesterday. EENT: No signs and/or symptoms were reported regarding the EENT system. Derm: Skin is intact, is healthy with good turgor, Skin is pink, warm \\T\\ dry. Musculoskeletal: Circulation, motion, and sensation intact. Capillary refill < 3 seconds. 04:00 Reassessment: Patient is alert, oriented x 3, equal unlabored respirations, skin lp1 warm/dry/pink. Patient dailey changed to leg bag for discharge; Instructed on using leg bag and emptying urine; Patient demonstrates understanding. Vital Signs: 03:10 BP 131 / 76; Pulse 105; Resp 16; Temp 97.9; Pulse Ox 98% on R/A; Weight 45.81 kg (R); aa1 Height 5 ft. 1 in. (154.94 cm); Pain 6/10; 03:10 Body Mass Index 19.08 (45.81 kg, 154.94 cm) aa1 ED Course: 02:46 Patient arrived in ED. es 02:47 Dante Murrieta MD is Private Physician. es 02:49 Jorge Serrato MD is Attending Physician. mohini 02:49 Tia Lowery, DAVID is Primary Nurse. aa1 03:00 Patient has correct armband on for positive identification. Placed in gown. Bed in low aa1 position. Call light in reach. Pulse ox on. NIBP on. Warm blanket given. 03:05 Bladder scan completed. 561ml. oe 03:08 Triage completed. aa1 03:10 Arm band placed on right wrist. aa1 03:34 Dailey cath inserted, using sterile technique, 16 Fr., by md, balloon inflated, to aa1 gravity drainage, urine specimen collected. returned clear yellow urine. Patient tolerated well. 03:42 Dante Murrieta MD is Referral Physician. mohini 03:42 Christo Hugo MD is Referral Physician. mohini 04:00 No provider procedures requiring assistance completed. Patient did not have IV access lp1 during this emergency room visit. Administered Medications: No medications were administered Output: 03:34 Urine: 1000ml (Dailey); Total: 1000ml. aa1 Outcome: 03:42 Discharge ordered by . mohini 04:00 Discharged to home ambulatory, with significant other. lp1 04:00 Condition: good 04:00 Discharge instructions given to patient, significant other, Instructed on discharge instructions, follow up and referral plans. Dailey leg bag care Demonstrated understanding of instructions, follow-up care, Dailey leg bag care 04:07 Patient left the ED. aa1 Signatures: Tia Lowery, RN RN aa1 Jorge Serrato MD MD cha Salyer, Edna es Pena, Laura, RN RN lp1 Hari Barnett
[2018-11-18 04:02] LABS: Urine Blood NEGATIVE (NEG); Urine Glucose NEGATIVE (NEG); Urine Protein NEGATIVE (NEG); Urine Specific Gravity 1.015 (1.005-1.030)
== END 2018-11-18 04:07 | disposition home or self-care (01) ==
LOC: ER 02:42
DX: R33.9 Retention of urine, unspecified (principal); E03.9 Hypothyroidism, unspecified; J45.909 Unspecified asthma, uncomplicated; K21.9 Gastro-esophageal reflux disease without esophagitis
CPT/HCPCS: 51702; 81003; 99284

== ENCOUNTER 2018-11-19 10:17 | Emergency (ER) | payer OTHER ==
--- OUTSIDE RECORDS SUMMARY | 2018-11-19 10:39 | XMS REPORT | Clinical Summary ---
:1965 Author Organization [employer] [employer] Address [address] [place] [address] Care Team Providers Name Role Phone Dante [...] Appointment Testing MD Sabra (Primary Dx) after 11/18/2017 Family History Medical History Relation Name Comments [...] Taken Blood Pressure 112/60 11/17/2018 12:45 PM TOOL CHECKER Pulse 98 11/17/2018 12:45 PM TOOL CHECKER Temperature 36.6 C (97.8 F) 11/17/2018 12:45 PM TOOL CHECKER Respiratory Rate 15 11/17/2018 1:15 PM TOOL CHECKER Oxygen Saturation 96% 11/17/2018 12:45 PM TOOL CHECKER Inhaled Oxygen Concentration - - Weight 46.7 kg (102 lb 16 oz) 11/06/2018 1:29 PM TOOL CHECKER Height 154.9 cm (5' 1") 11/06/2018 1:29 PM TOOL CHECKER Body Mass Index 19.46 11/06/2018 1:29 PM TOOL CHECKER Plan of Treatment Health Maintenance Due Date Last Done Comments CERVICAL CANCER SCREENING 1988 BREAST CANCER SCREENING 2017 COLON CANCER SCREENING 2017 SHINGLES VACCINES (#1) 2017 INFLUENZA VACCINE 04/16/2018 Procedures Procedure Name Priority Date/Time Associated Comments Diagnosis SURGICAL PATHOLOGY Routine 11/17/2018 10:30 Results for this REQUEST AM TOOL CHECKER procedure are in the results section. MN AN ELECTIVE Routine 11/17/2018 8:30 ENDOTRACHEAL AIRWAY AM TOOL CHECKER Procedure Note - Murray Camargo CRNA - 11/17/2018 8:30 AM TOOL CHECKER Airway Date/Time: 11/17/2018 8:30 AM Performed by: Murray Camargo CRNA Authorized by: Calderon Quinn MD Location: OR Urgency: Elective Difficult Airway: No Anesthesiologist: Calderon Quinn MD Resident/KAREN/AA: Murray Camargo CRNA Performed by: resident/KAREN/AA Preoxygenated [...] Routine 11/17/2018 6:56 AM Results for this TOOL CHECKER procedure are in the results section. ESTIMATED GFR Routine 11/06/2018 2:35 PM Results for this TOOL CHECKER procedure are in the results section. BASIC METABOLIC PANEL Routine 11/06/2018 2:35 PM Preop testing Results for this TOOL CHECKER procedure are in the results section. HC COMPLETE BLD COUNT Routine 11/06/2018 2:35 PM Preop testing Results for this W/AUTO DIFF TOOL CHECKER procedure are in the results section. after 11/18/2017 Results Surgical pathology request (11/17/2018 10:30 AM TOOL CHECKER) [facility] DEPARTMENT OF PATHOLOGY AND GENOMIC MEDICINE Surgical pathology report See link below for PDF [facility] DEPARTMENT OF Lab Report PATHOLOGY AND GENOMIC MEDICINE Result status This is Final Report [facility] DEPARTMENT OF for [id number] PATHOLOGY AND GENOMIC MEDICINE Performing Organization Address City/[facility]/Zipcode Phone Number [facility] DEPARTMENT OF PATHOLOGY [id number] [place] [address] AND [facility] POC glucose (11/17/2018 6:56 AM TOOL CHECKER) POC glucose 90 65 - 99 mg/dL [facility] Comment: HOSPITAL Meter ID: [id number] Explosive Technician: Malissa Colin Performing Organization Address [facility] Phone Number [facility] DEPARTMENT OF PATHOLOGY [address] [place] [address] Estimated GFR (11/06/2018 2:35 PM TOOL CHECKER) Estimated GFR >=90 mL/min/1.[address] [facility] Comment: [facility] CatergoryUnitsInterpretation G1 >=90 Normal or high G2 60-89Mildly decreased M2m31-25Yxygbo to moderately decreased Q0n17-68Ymbdiofvyg to severely decreased G4 15-29Severely decreased G5 <15Kidney failure The eGFR was calculated using the Chronic Kidney Disease Epidemiology Collaboration (CKD-EPI) equation. Interpretation is based on recommendations of the National Kidney Foundation-Kidney Disease Outcomes Quality Initiative (NKF-KDOQI) published in 2014. Specimen Plasma specimen Performing Organization Address City/[facility]/Zipcode Phone Number [facility] DEPARTMENT OF PATHOLOGY [address] [place] [address] CBC with platelet and differential (11/06/2018 2:35 PM TOOL CHECKER) WBC 5.2 4.5 - 11.0 k/uL [facility] RBC 4.66 4.20 - 5.50 m/uL [facility] HGB 14.4 12.0 - 16.0 g/dL [facility] HCT 42.9 37.0 - 47.0 % [facility] MCV 92.1 82.0 - 100.0 fL [facility] MCH 30.9 27.0 - 34.0 pg [facility] MCHC 33.6 31.0 - 37.0 g/dL [facility] RDW - SD 41.7 37.0 - 55.0 fL [facility] MPV 9.8 6.9 - 11.0 fL [facility] Platelet count 318 150 - 400 K/uL [facility] Nucleated RBC 0.00 /100 WBC [facility] Neutrophils 53.7 39.0 - 69.0 % [facility] Lymphocytes 36.0 25.0 - 45.0 % [facility] Monocytes 6.0 0.0 - 10.0 % [facility] Eosinophils 3.1 0.0 - 5.0 % [facility] Basophils 1.0 0.0 - 1.0 % [facility] Immature granulocytes 0.2 0.0 - 1.0 % [facility] Specimen Blood Performing Organization Address City/State/Zipcode Phone Number [facility] DEPARTMENT OF PATHOLOGY [address] [place] [address] AND GENOMIC MEDICINE [facility] [address] [place] [address] HOSPITAL Basic metabolic panel (11/06/2018 2:35 PM TOOL CHECKER) Sodium 136 135 - 148 mEq/L [facility] Potassium 4.9 3.5 - 5.0 mEq/L [facility] Chloride 100 98 - 112 mEq/L [facility] CO2 27 24 - 31 mEq/L [facility] Anion gap 9@ANIO 7 - 15 mEq/L [facility] BUN 10 6 - 20 mg/dL [facility] Creatinine 0.61 0.50 - 0.90 mg/dL [facility] Glucose 95 65 - 99 mg/dL [facility] Calcium 9.9 8.3 - 10.2 mg/dL [facility] Specimen Plasma specimen Performing Organization Address City/State/Zipcode Phone Number [facility] DEPARTMENT OF PATHOLOGY [address] [place] [address] AND GENOMIC MEDICINE [facility] [address] [place] [address] HOSPITAL after 11/18/2017 Advance Directives Patient has advance care planning documents on file. For more information, please contact:[facility] [place] [address]
--- NOTE | 2018-11-19 12:22 | ER ---
Nurse's Notes [facility] Name: Melba Henry Age: 53 yrs Sex: Female : 1965 Arrival Date: 11/19/2018 Time: 10:19 Bed 18 Private MD: Dante Murrieta E Diagnosis: Post surgical urinary retention - resolved;Encounter for fitting and adjustment of urinary device-removed Presentation: 11/19 10:34 Presenting complaint: Patient states: i had surgery Saturday to remove my breast tw2 implants and then i couldn't urinate so i came in Saturday and they put a dailey catheter in my because my bladder was full and now i need to have it removed. Transition of care: patient was not received from another setting of care. Onset of symptoms was November 19, 2018. Risk Assessment: Do you want to hurt yourself or someone else? Patient reports no desire to harm self or others. Initial Sepsis Screen: Does the patient meet any 2 criteria? No. Patient's initial sepsis screen is negative. Does the patient have a suspected source of infection? No. Patient's initial sepsis screen is negative. Care prior to arrival: None. 10:34 Method Of Arrival: Ambulatory tw2 10:34 Acuity: MEGHNA 4 tw2 Triage Assessment: 10:36 General: Appears in no apparent distress. slender, Behavior is calm, cooperative, tw2 appropriate for age. Pain: Denies pain. 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 - Social history:: Smoking status: . - Ebola Screening: : Patient denies travel to an Ebola-affected area in the 21 days before illness onset. Screenin:42 Abuse screen: Denies threats or abuse. Denies injuries from another. Nutritional ls4 screening: No deficits noted. Tuberculosis screening: No symptoms or risk factors identified. Fall Risk None identified. Assessment: 11:26 General: Appears in no apparent distress. Pain: Denies pain. Neuro: No deficits noted. ls4 Cardiovascular: No deficits noted. Respiratory: No deficits noted. : Reports pt able to urinate after removal. 12:28 Reassessment: Patient appears in no apparent distress at this time. Patient and/or ls4 family updated on plan of care and expected duration. Pain level reassessed. Patient is alert, oriented x 3, equal unlabored respirations, skin warm/dry/pink. pt able to urinate without difficulty, urine pale yellow and clear. Vital Signs: 10:35 BP 119 / 82; Pulse 90; Resp 17; Temp 97.8(TE); Pulse Ox 96% on R/A; Pain 0/10; tw2 12:29 BP 118 / 80; Pulse 78; Resp 16; Temp 98; Pulse Ox 97% on R/A; Pain 0/10; ls4 ED Course: 10:19 Patient arrived in ED. mr 10:20 Dante Murrieta MD is Private Physician. mr 10:35 Triage completed. tw2 10:35 Arm band placed on. tw2 10:41 Denise Matt RN is Primary Nurse. ls4 10:42 Patient has correct armband on for positive identification. Bed in low position. Call ls4 light in reach. Side rails up X 1. 10:42 No provider procedures requiring assistance completed. ls4 10:43 Fernando Escobar NP is PHCP. pm1 10:43 Sunny Handley MD is Attending Physician. pm1 11:26 Patient tolerated well. Dailey cath removed intact, balloon deflated. ls4 12:31 Patient did not have IV access during this emergency room visit. ls4 Administered Medications: No medications were administered Outcome: 12:22 Discharge ordered by . pm1 12:30 Discharged to home ambulatory, with family. ls4 12:30 Condition: good 12:30 Discharge instructions given to patient, Instructed on discharge instructions, follow up and referral plans. medication usage, safety practices, Demonstrated understanding of instructions, follow-up care, medications. 12:31 Patient left the ED. ls4 Signatures: Tootie Anand mr Fernando Escobar, GIANNA BILLET SHEARER pm1 Heather Roque RN RN tw2 Denise Matt, RN RN ls4
--- NOTE | 2018-11-19 12:22 | EDPHYS ---
Physician Documentation [facility] Name: Melba Henry Age: 53 yrs Sex: Female : 1965 Arrival Date: 11/19/2018 Time: 10:19 Bed 18 Private MD: Dante Murrieta E ED Physician Sunny Handley HPI: 11/19 11:25 This 53 yrs old Female presents to ER via Ambulatory with complaints of pm1 catheter removal. 11:25 The patient presents with wants urinary catheter removed. Onset: The symptoms/episode pm1 began/occurred yesterday. Associated signs and symptoms: Pertinent negatives: diarrhea, fever, vomiting, abdominal pain. The patient has been recently seen at the [facility] Emergency Department, yesterday. Patient with surgery on Saturday. Patient had catheter placed yesterday around 0230 and was told that she would not have to have the catheter in place for greater than 24 hours. Patient would like the catheter removed now.. 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 - Social history:: Smoking status: . - Ebola Screening: : Patient denies travel to an Ebola-affected area in the 21 days before illness onset. ROS: 11:25 Negative for pelvic pain, flank pain. pm1 11:25 Constitutional: Negative for fever, chills, and weight loss, Eyes: Negative for injury, pain, redness, and discharge, ENT: Negative for injury, pain, and discharge, Neck: Negative for injury, pain, and swelling, Cardiovascular: Negative for chest pain, palpitations, and edema, Respiratory: Negative for shortness of breath, cough, wheezing, and pleuritic chest pain, Abdomen/GI: Negative for abdominal pain, nausea, vomiting, diarrhea, and constipation, Back: Negative for injury and pain, MS/Extremity: Negative for injury and deformity, Skin: Negative for injury, rash, and discoloration, Neuro: Negative for headache, weakness, numbness, tingling, and seizure. Exam: 11:25 Constitutional: This is a well developed, well nourished patient who is awake, alert, pm1 and in no acute distress. Head/Face: Normocephalic, atraumatic. Eyes: Pupils equal round and reactive to light, extra-ocular motions intact. Lids and lashes normal. Conjunctiva and sclera are non-icteric and not injected. Cornea within normal limits. Periorbital areas with no swelling, redness, or edema. ENT: Nares patent. No nasal discharge, no septal abnormalities noted. Tympanic membranes are normal and external auditory canals are clear. Oropharynx with no redness, swelling, or masses, exudates, or evidence of obstruction, uvula midline. Mucous membranes moist. Neck: Trachea midline, no thyromegaly or masses palpated, and no cervical lymphadenopathy. Supple, full range of motion without nuchal rigidity, or vertebral point tenderness. No Meningismus. Chest/axilla: Normal chest wall appearance and motion. Nontender with no deformity. No lesions are appreciated. Cardiovascular: Regular rate and rhythm with a normal S1 and S2. No gallops, murmurs, or rubs. Normal PMI, no JVD. No pulse deficits. Respiratory: Lungs have equal breath sounds bilaterally, clear to auscultation and percussion. No rales, rhonchi or wheezes noted. No increased work of breathing, no retractions or nasal flaring. Abdomen/GI: Soft, non-tender, with normal bowel sounds. No distension or tympany. No guarding or rebound. No evidence of tenderness throughout. Back: No spinal tenderness. No costovertebral tenderness. Full range of motion. Skin: Warm, dry with normal turgor. Normal color with no rashes, no lesions, and no evidence of cellulitis. MS/ Extremity: Pulses equal, no cyanosis. Neurovascular intact. Full, normal range of motion. 11:25 Neuro: Orientation: is normal, Motor: is normal, moves all fours. Vital Signs: 10:35 BP 119 / 82; Pulse 90; Resp 17; Temp 97.8(TE); Pulse Ox 96% on R/A; Pain 0/10; tw2 12:29 BP 118 / 80; Pulse 78; Resp 16; Temp 98; Pulse Ox 97% on R/A; Pain 0/10; ls4 MDM: 10:53 Patient medically screened. pm1 11:25 Data reviewed: vital signs. Data interpreted: Pulse oximetry: on room air is 96 %. pm1 Interpretation: normal. 12:20 Counseling: I had a detailed discussion with the patient and/or guardian regarding: the pm1 historical points, exam findings, and any diagnostic results supporting the discharge/admit diagnosis, lab results, the need for outpatient follow up, to return to the emergency department if symptoms worsen or persist or if there are any questions or concerns that arise at home. 12:20 ED course: Patient able to urinate without any difficulty after catheter removed. pm1 11/19 12:31 Order name: Urine Dipstick--Ancillary (enter results) em1 11/19 10:54 Order name: [facility] Order: Remove catheter; Complete Time: 11:39 pm1 Administered Medications: No medications were administered Disposition: 16:41 Co-signature as Attending Physician, Sunny Handley MD I agree with the assessment and kdr plan of care. Disposition: 11/19/18 12:22 Discharged to Home. Impression: Post surgical urinary retention - resolved, Encounter for fitting and adjustment of urinary device - removed. - Condition is Stable. - Discharge Instructions: Acute Urinary Retention, Female. - Medication Reconciliation Form, Thank You Letter, Antibiotic Education form. - Follow up: Emergency Department; When: As needed; Reason: Worsening of condition. Follow up: Private Physician; When: 2 - 3 days; Reason: Recheck today's complaints, Continuance of care, Re-evaluation by your physician. - Problem is new. - Symptoms have improved. Signatures: Dispatcher [employer] EDMS Sunny Handley MD MD kdr Marinas, Patrick, NP JUNIOR SALES REPRESENTATIVE pm1 Heather Roque RN RN tw2 Denise Matt RN RN ls4 Corrections: (The following items were deleted from the chart) 12:31 12:22 11/19/2018 12:22 Discharged to Home. Impression: Post surgical urinary retention ls4 - resolved; Encounter for fitting and adjustment of urinary device - removed. Condition is Stable. Forms are Medication Reconciliation Form, Thank You Letter, Antibiotic Education, Prescription Opioid Use. Follow up: Emergency Department; When: As needed; Reason: Worsening of condition. Follow up: Private Physician; When: 2 - 3 days; Reason: Recheck today's complaints, Continuance of care, Re-evaluation by your physician. Problem is new. Symptoms have improved. pm1
[2018-11-19 12:39] LABS: Urine Blood TRACE (NEG); Urine Glucose NEGATIVE (NEG); Urine Protein NEGATIVE (NEG); Urine Specific Gravity 1.015 (1.005-1.030); Urine pH 7.5 (5.0-7.0)
== END 2018-11-19 12:31 | disposition home or self-care (01) ==
LOC: ER 10:17
DX: Z46.6 Encounter for fitting and adjustment of urinary device (principal); E03.9 Hypothyroidism, unspecified; J45.909 Unspecified asthma, uncomplicated; Z88.8 Allergy status to other drugs, medicaments and biological substances; Z98.82 Breast implant status
CPT/HCPCS: 81003; 99281

== ENCOUNTER 2019-03-18 09:40 | Emergency (ER) | payer OTHER ==
--- OUTSIDE RECORDS SUMMARY | 2019-03-18 09:42 | XMS REPORT | Clinical Summary ---
:1965 Author Organization [facility] Address [address] [place] [address] Care Team Providers Name Role Phone Unavailable Primary Care Provider Unavailable Allergies No Known Allergies Medications No known medications Active Problems Not on file Encounters Date Type Specialty Care Team Description 12/09/2018 Office Visit Urology Jose Carlos Garcia OAB (overactive bladder) (Primary Dx); MD Liam History of urinary retention after 03/17/2018 Social History Tobacco Use Types Packs/Day Years Used Date Never Assessed Sex Assigned at Date Recorded Not on file Job Start Date Occupation Industry Not on file Not on file Not on file Travel History Travel Start Travel End No recent travel history available. Last Filed Vital Signs Vital Sign Reading Time Taken Blood Pressure 106/68 12/09/2018 1:24 PM CDT Pulse 76 12/09/2018 1:24 PM CDT Temperature 36.6 C (97.9 F) 12/09/2018 1:24 PM CDT Respiratory Rate - - Oxygen Saturation - - Inhaled Oxygen Concentration - - Weight 45.3 kg (99 lb 14.4 oz) 12/09/2018 1:24 PM CDT Height 154.9 cm (5' 1") 12/09/2018 1:24 PM CDT Body Mass Index 18.88 12/09/2018 1:24 PM CDT Plan of Treatment Not on file Procedures Procedure Name Priority Date/Time Associated Comments Diagnosis MICROSCOPIC Routine 12/09/2018 5:08 Results for this EXAMINATION PM CDT procedure are in the results section. UA/M W/RFLX CULTURE, Routine 12/09/2018 5:08 Results for this ROUT PM CDT procedure are in the results section. after 03/17/2018 Results MICROSCOPIC EXAMINATION (12/09/2018 5:08 PM CDT) WBC None seen 0 - 5 /hpf [facility] 1 RBC None seen 0 - 2 /hpf [facility] 1 Epithelial Cells (non renal) None seen 0 - 10 /hpf [facility] 1 Bacteria None seen None seen/ [facility] 1 Specimen Narrative Performed At Performed at: - [facility] [address] [place], [id number] Uke Driver: Neno Justice MD, Phone:[phone] Performing Organization Address City/[facility]/Zipcode Phone Number [facility] UA/M W/RFLX CULTURE, ROUT (12/09/2018 5:08 PM CDT) Specific [place], UA 1.008 1.005 - 1.03 [facility] 1 pH, UA 7.5 5.0 - 7.5 [facility] 1 Color, UA Yellow Yellow [facility] 1 Appearance Clear Clear [facility] 1 WBC Esterase Negative Negative [facility] 1 Protein, UA Negative Negative/T [facility] 1 Glucose, Urine Negative Negative [facility] 1 Ketones, UA Negative Negative [facility] 1 Blood, UA Negative Negative [facility] 1 Bilirubin, UA Negative Negative [facility] 1 Urobilinogen,Semi-Qn 0.2 0.2 - 1.0 mg/dL [facility] 1 Nitrite, UA Negative Negative [facility] 1 Microscopic Examination CommentComment: Microscopic [facility] 1 follows if indicated. Microscopic Examination See below:Comment: Microscopic [facility] 1 was indicated and was performed. Urinalysis Reflex CommentComment: This specimen [facility] 1 will not reflex to a Urine Culture. Specimen Narrative Performed At [facility] at[facility] [address] [place], [id number] Uke Driver: Neno Justice MD, Phone:[phone] Performing Organization Address City/State[facility] Phone Number [facility] 1 after 03/17/2018 Insurance Payer Benefit Plan / Group Subscriber ID Type Phone Address [address] (Home) [address] [place] [address]
--- OUTSIDE RECORDS SUMMARY | 2019-03-18 09:42 | XMS REPORT | Clinical Summary ---
:1965 Author Organization [facility] Address [address] [place] [address] Care Team Providers Name Role Phone Dante [...] 1 tablet by 40 tablet 0 11/17/2018 ine (TYLENOL WITH mouth every 4 9 CODEINE #3) 300-30 (four) hours as mg per tablet needed for mild pain for up to 7 days. cephalexin Take 1 capsule 30 capsule 0 11/17/2018 (KEFLEX) 500 MG (500 mg total) by 9 capsule mouth 3 (three) times a day for 10 days. promethazine Insert 1 10 suppository 0 11/17/2018 (PHENERGAN) 25 MG suppository (25 9 suppository [...] Appointment Testing MD Sabra (Primary Dx) after 03/17/2018 Family History Medical History Relation Name Comments [...] Taken Blood Pressure 112/60 11/17/2018 12:45 PM ACCOUNT DEVELOPMENT REPRESENTATIVE Pulse 98 11/17/2018 12:45 PM ACCOUNT DEVELOPMENT REPRESENTATIVE Temperature 36.6 C (97.8 F) 11/17/2018 12:45 PM ACCOUNT DEVELOPMENT REPRESENTATIVE Respiratory Rate 15 11/17/2018 1:15 PM ACCOUNT DEVELOPMENT REPRESENTATIVE Oxygen Saturation 96% 11/17/2018 12:45 PM ACCOUNT DEVELOPMENT REPRESENTATIVE Inhaled Oxygen Concentration - - Weight 46.7 kg (103 lb) 11/06/2018 1:29 PM ACCOUNT DEVELOPMENT REPRESENTATIVE Height 154.9 cm (5' 1") 11/06/2018 1:29 PM ACCOUNT DEVELOPMENT REPRESENTATIVE Body Mass Index 19.46 11/06/2018 1:29 PM ACCOUNT DEVELOPMENT REPRESENTATIVE Plan of Treatment Health Maintenance Due Date Last Done Comments BREAST CANCER SCREENING 2017 COLONOSCOPY SCREENING 2017 SHINGLES VACCINES (#1) 2017 INFLUENZA VACCINE 04/16/2019 Procedures Procedure Name Priority Date/Time Associated Comments Diagnosis SURGICAL PATHOLOGY Routine 11/17/2018 10:30 Results for this REQUEST AM ACCOUNT DEVELOPMENT REPRESENTATIVE procedure are in the results section. OR AN ELECTIVE Routine 11/17/2018 8:30 ENDOTRACHEAL AIRWAY AM ACCOUNT DEVELOPMENT REPRESENTATIVE Procedure Note - Murray Camargo CRNA - 11/17/2018 8:30 AM ACCOUNT DEVELOPMENT REPRESENTATIVE Airway Date/Time: 11/17/2018 8:30 AM Performed by: Murray Camargo CRNA Authorized by: Calderon Quinn MD Location: OR Urgency: Elective Difficult Airway: No Anesthesiologist: Calderon Quinn MD Resident/WINDSHIELD REPAIR TECHNICIAN/AA: Murray Camargo CRNA Performed by: resident/KAREN/AA Preoxygenated [...] Routine 11/17/2018 6:56 AM Results for this ACCOUNT DEVELOPMENT REPRESENTATIVE procedure are in the results section. ESTIMATED GFR Routine 11/06/2018 2:35 PM Results for this ACCOUNT DEVELOPMENT REPRESENTATIVE procedure are in the results section. BASIC METABOLIC PANEL Routine 11/06/2018 2:35 PM Preop testing Results for this ACCOUNT DEVELOPMENT REPRESENTATIVE procedure are in the results section. HC COMPLETE BLD COUNT Routine 11/06/2018 2:35 PM Preop testing Results for this W/AUTO DIFF ACCOUNT DEVELOPMENT REPRESENTATIVE procedure are in the results section. after 03/17/2018 Results Surgical pathology request (11/17/2018 10:30 AM ACCOUNT DEVELOPMENT REPRESENTATIVE) Pathologist [facility] DEPARTMENT OF PATHOLOGY AND GENOMIC MEDICINE Surgical pathology See link below [facility] DEPARTMENT OF report for PDF Lab PATHOLOGY AND Report GENOMIC MEDICINE Result status This is Final [facility] DEPARTMENT OF Report for PATHOLOGY AND [id number] GENOMIC MEDICINE Specimen Performing Organization Address [facility] Phone Number [facility] DEPARTMENT OF PATHOLOGY [address] [place] [address] AND [facility] POC glucose (11/17/2018 6:56 AM ACCOUNT DEVELOPMENT REPRESENTATIVE) [facility] POC glucose 90 65 - 99 mg/dL SALTILLO SABIANIST Comment: [facility] Meter ID: [id number] Gold Prospector: Malissa Colin Specimen Performing Organization Address [facility] Phone Number [facility] DEPARTMENT OF PATHOLOGY [address] [place] [address] Estimated GFR (11/06/2018 2:35 PM ACCOUNT DEVELOPMENT REPRESENTATIVE) [facility] Estimated GFR >=90 mL/min/1.73 SALTILLO SABIANIST Comment: [address] CatergoryUnitsInterpretation [facility] G1 >=90 Normal or high G2 60-89Mildly decreased [id number] to moderately decreased H3e34-71Lplohrnhsr to severely decreased G4 15-29Severely decreased G5 <15Kidney failure The eGFR was calculated using the Chronic Kidney Disease Epidemiology Collaboration (CKD-EPI) equation. Interpretation is based on recommendations of the National Kidney Foundation-Kidney Disease Outcomes Quality Initiative (NKF-KDOQI) published in 2014. Specimen Plasma specimen Performing Organization Address City/[facility]/Zipcode Phone Number [facility] DEPARTMENT OF PATHOLOGY [address] [place] [address] CBC with platelet and differential (11/06/2018 2:35 PM ACCOUNT DEVELOPMENT REPRESENTATIVE) [facility] WBC 5.2 4.5 - 11.0 k/uL [facility] RBC 4.66 4.20 - 5.50 m/uL [facility] HGB 14.4 12.0 - 16.0 g/dL [facility] HCT 42.9 37.0 - 47.0 % [facility] MCV 92.1 82.0 - 100.0 fL [facility] MCH 30.9 27.0 - 34.0 pg [facility] MCHC 33.6 31.0 - 37.0 g/dL [facility] RDW - SD 41.7 37.0 - 55.0 fL [facility] MPV 9.8 6.9 - 11.0 fL [facility] Platelet count 318 150 - 400 K/uL [facility] Nucleated RBC 0.00 /100 WBC [facility] Neutrophils 53.7 39.0 - 69.0 % [facility] Lymphocytes 36.0 25.0 - 45.0 % [facility] Monocytes 6.0 0.0 - 10.0 % [facility] Eosinophils 3.1 0.0 - 5.0 % [facility] Basophils 1.0 0.0 - 1.0 % [facility] Immature granulocytes 0.2 0.0 - 1.0 % [facility] Specimen Blood Performing Organization Address City/State/Zipcode Phone Number [facility] DEPARTMENT OF PATHOLOGY [address] [place] [address] AND GENOMIC MEDICINE [facility] [address] [place] [address] HOSPITAL Basic metabolic panel (11/06/2018 2:35 PM ACCOUNT DEVELOPMENT REPRESENTATIVE) Sodium 136 135 - 148 mEq/L [facility] Potassium 4.9 3.5 - 5.0 mEq/L [facility] Chloride 100 98 - 112 mEq/L [facility] CO2 27 24 - 31 mEq/L [facility] Anion gap 9@ANIO 7 - 15 mEq/L [facility] BUN 10 6 - 20 mg/dL [facility] Creatinine 0.61 0.50 - 0.90 mg/dL [facility] Glucose 95 65 - 99 mg/dL [facility] Calcium 9.9 8.3 - 10.2 mg/dL [facility] Specimen Plasma specimen Performing Organization Address City/State/Zipcode Phone Number [facility] DEPARTMENT OF PATHOLOGY [address] [place] [address] AND GENOMIC MEDICINE [facility] [address] [place] [address] HOSPITAL after 03/17/2018 Advance Directives Patient has advance care planning documents on file. For more information, please contact:[facility] [place] [address]
[2019-03-18 10:24] LABS: Absolute Lymphocytes (CBC) 1.4 K/uL (0.7-4.9); Basophils % 1.2 % (0-1.3); Eosinophils % 5.4 % (0-4.4); Hematocrit 38.9 % (36.0-45.0); Lymphocytes % 34.8 % (15.3-44.8); MPV 8.2 fL (7.6-11.3); Monocytes % 7.8 % (3.3-12.3); RBC Red Blood Cell Count 4.32 M/uL (3.86-4.86)
[2019-03-18 10:34] LABS: BUN Blood Urea Nitrogen 12 mg/dL (7-18); Bicarbonate 29 mmol/L (21-32); Glucose Level 77 mg/dL (74-106); Potassium 3.8 mmol/L (3.5-5.1); Sodium Level 138 mmol/L (136-145)
[2019-03-18] MEDS ORDERED: MEPERIDINE HCL 25 MG/0.5 ML ONE (10:34)
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
== END 2019-03-18 11:35 | disposition home or self-care (01) ==
LOC: ER 09:40
DX: S39.012A Strain of muscle, fascia and tendon of lower back, initial encounter (principal); S16.1XXA Strain of muscle, fascia and tendon at neck level, initial encounter; V49.40XA Driver injured in collision with unspecified motor vehicles in traffic accident, initial encounter; F41.9 Anxiety disorder, unspecified
CPT/HCPCS: 36415; 70450; 71260; 72125; 74177; 80048; 85025; 96374; 99284; J2175; Q9967

== ENCOUNTER 2022-01-12 13:18 | Emergency (ER) | payer OTHER ==
--- OUTSIDE RECORDS SUMMARY | 2022-01-12 13:20 | XMS REPORT | Continuity of Care Document ---
:1965 Author Organization [facility] t Address [address] [place] [address] Care Team Providers Name Role Phone Oscar Serrano MD Attending Clinician Bernabe Cuevas Attending Clinician Unavailable Physician, Primary or Family Admitting Clinician Unavailabl e Payers Payer Name Policy Type Policy Number Effective Date Expiration Date S ource Problems Condition Condition Condition Status Onset Resolution Last Treating Co mments Source Name Details Category Date Date Treatment Clinician Date Chronic Chronic Disease Active [facility] sinusitis sinusitis 11-12 Hilary ege 00:00: of 00 Medicin e Chondromal Chondromal Diagnosis [facility] right of right l knee knee Outpati ent Clinics Chondromal Chondromal Diagnosis [facility] of left of left l knee knee Outpati ent Clinics Pain, Pain, Diagnosis Active [facility] shoulder, shoulder, Gabriel stephanie left left l Outpati ent Clinics Subacromia Subacromia Diagnosis Active [facility] bursitis l bursitis [facility] k[facility] - of left of left Memoria shoulder shoulder l joint joint Outpati ent Clinics Allergies, Adverse Reactions, Alerts Allergy Allergy Status Severity Reaction(s) Onset Inactive Treating Comm ents Source Name Type Date Date Clinician NO KNOWN Drug Active Univers ALLERGIE Class ity of S [facility] Social History Social Habit Start Date Stop Date Quantity Comments Source History SDOH [facility] Colle ge Alcohol Std Drinks of Med icine History [facility] ge Alcohol Binge of Medicine Sex Assigned At [facility] Co llege of Medicine Alcohol intake 2019-11-03 2019-11-03 Lifetime [facility] Col lege 00:00:00 00:00:00 non-drinker of Medicine (finding) History [facility] 2019-11-03 2019-11-03 1 [facility] ge Alcohol Frequency 00:00:00 00:00:00 of [facility] Smoking Status Start Date Stop Date Source Never smoker [facility] f [facility] Medications Ordered Filled Start Stop Current Ordering Indication Dosage Frequency Signature Comments Components Source Medication Medication Date Date Medication? Clinician (SIG) Name Name Lomotil Lomotil Yes Matteo not [facility] Zofran Zofran Yes [facility] not [facility] Dymista Dymista Yes [facility]te[facility] not [facility] Lorazepam Lorazepam Yes [facility] Azelastine Azelastine Yes [facility] not [facility] Vital Signs Vital Name Observation Time Observation Value Comments Source Systolic blood 2019-11-03 20:34:00 116 mm[Hg] [facility] pressure Medicine Diastolic blood 2019-11-03 20:34:00 83 mm[Hg] [facility] pressure Medicine Heart rate 2019-11-03 20:34:00 72 /min [facility] Body height 2019-11-03 20:34:00 154.9 cm [facility] Body weight 2019-11-03 20:34:00 47.628 kg [facility] BMI 2019-11-03 20:34:00 19.84 kg/m2 [facility] Systolic blood 2019-11-03 20:34:00 116 mm[Hg] [facility] pressure Medicine Diastolic blood 2019-11-03 20:34:00 83 mm[Hg] [facility] pressure Medicine Heart rate 2019-11-03 20:34:00 72 /min [facility] Body height 2019-11-03 20:34:00 154.9 cm [facility] Body weight 2019-11-03 20:34:00 47.628 kg [facility] BMI 2019-11-03 20:34:00 19.84 kg/m2 [facility] Procedures Procedure Date / Time Performed Performing Clinician [facility] e NASAL ENDOSCOPY, 2019-11-03 00:00:00 Jaciel Serrano [facility] Hilary ege of DIAGNOSTIC, UNILATERAL Medicine OR BILATERAL (SEPARATE PROCED) Plan of Care Planned Activity Planned Date Details Comments Source Future Scheduled Test COLON CANCER SCREENING: [facility] COLONOSCOPY [code = Medicine COLON CANCER SCREENING: COLONOSCOPY] Future Scheduled Test MAMMOGRAM ANNUAL [code [facility] = MAMMOGRAM ANNUAL] Medicine Future Scheduled Test TETANUS SHOT (ADULT) [facility] [code = TETANUS SHOT Medicin e (ADULT)] Future Scheduled Test HIV SCREENING [code = [facility] HIV SCREENING] Medicine Future Scheduled Test CERVICAL CANCER [facility] SCREENING 3 YEAR FOLLOW Medi cine UP [code = CERVICAL CANCER SCREENING 3 YEAR FOLLOW UP] Future Scheduled Test FLU VACCINE > 6 MONTHS [facility] [code = FLU VACCINE > 6 Medi cine MONTHS] Encounters Start End Encounter Admission Attending Care Care Encounter Source Date/Time Date/Time Type Type Clinicians Facility Department ID 2021-10-11 Outpatient [facility]MLC ST[facility]MLC [id number] [facility] 11:40:47 [id number] [facility] ent Clinics 2020-05-10 2020-05-10 [facility] [id number] 13:30:00 13:30:00 [facility] ent Clinics 2020-05-08 2020-05-08 Outpatient R [facility] [id number] Univers 13:00:00 13:00:00 [id number] ity of [facility] 2019-11-03 2019-11-03 Office SONY Serrano [id number] [facility] 14:23:27 16:20:56 Visit Jaciel Moore AMBULATOR [id number] College Y [id number] of [id number] Medi lc 800 e 2019-11-03 2019-11-03 Office SONY Serrano [id number] 14:23:27 16:20:56 Visit Jaciel Moore AMBULATOR [id number] Y [id number] 2019-10-21 2019-10-21 [facility] [id number] [facility] 14:00:00 14:00:00 [facility] Results Test Description Test Time Test Comments Results Result [facility] e Comments - CT MAXIFAC W/O 2019-10-21 Name: ADINA MCNEIL CONTRAST 15:05:00 [facility] : 1965 Age/S: 54 / F [address] [place] [address] Blvd Unit #: [id number] Loc: [place] [address] Phys: Toney Cuevas MD Acct: [id number] Dis Date: Status: REG CLI PHONE #: [phone] Exam Date: 10/21/2019 1417 FAX #: [phone] Reason: J32.9, CHRONIC SINUSITIS, UNSPECIFIED. EXAMS: CPT CODE: [id number] CT MAXIFAC W/O CONTRAST [id number] CT sinuses without contrast 10/21/2019 HISTORY: Chronic sinusitis. PROCEDURE: 2 mm axial images through the sinuses were obtained with coronal sagittal reconstructions. CT imaging performed at this location utilizes radiation dose optimization techniques which include one or more of the following: -Automated exposure control -Adjustment of the mA and/or kV according to patient size -Use of iterative reconstruction technique CT Radiation Dose DLP 150.5 mGy-cm No prior exams are available for comparison FINDINGS: There is near complete opacification of bilateral maxillary sinuses with large air-fluid levels. There is opacification of the left sphenoid sinus. Moderate opacification of the right sphenoid sinus is noted with air-fluid levels. There is near complete opacification of the bilateral ethmoid air cells. Right frontal sinus is opacified. Large air-fluid level in the left frontal sinus is noted. There is complete opacification of the bilateral ostiomeatal complexes. Superior left and inferior right nasal septal deviation is noted. No acute or aggressive bony abnormality is present. The intraorbital fat, extraocular muscles, and optic nerves are grossly unremarkable. IMPRESSION: 1. Severe pansinusitis with large air-fluid levels in the bilateral maxillary sinuses, right sphenoid sinus, and left frontal sinus. Complete opacification of right frontal sinus, left sphenoid sinus, and bilateral ethmoid sinuses. 2. Nasal septal deviation. SL: [id number] at 150 Reported and signed by: Robson Brown M.D. PAGE 1 Signed Report (CONTINUED) Name: ADINA MCNEIL [facility] : 1965 Age/S: 54 / F [address] [place] [address] Bl Unit #: [id number] Loc: [place] [address] Phys: Toney Cuevas MD Acct: [id number] Dis Date: Status: REG CLI PHONE #: [phone] Exam Date: 10/21/2019 1417 FAX #: [phone] Reason: J32.9, CHRONIC SINUSITIS, UNSPECIFIED. EXAMS: CPT CODE: [id number] CT MAXIFAC W/O CONTRAST 48885 <Continued> CC: Dante Murrieta Jr, MD Technologist:Yohannes Wiseman, RT(R)(CT) CTDI: DLP: Trnscb Date/Time: 10/21/2019 (1505) [email or web address] Orig Print D/T: S: 10/21/2019 (9498) PAGE 2 Signed Report
[2022-01-12] MEDS ORDERED: ASPIRIN 81 MG CHEWABLE TABLET ONE (14:10)
[2022-01-12] MEDS ORDERED: KETOROLAC 30 MG/ML INJ ONE (14:11)
[2022-01-12] MEDS ORDERED: ONDANSETRON 4 MG/2 ML VIAL ONE (14:11)
[2022-01-12] MEDS ORDERED: FAMOTIDINE 20 MG/2 ML VIAL IV ONE (14:11)
[2022-01-12 15:08] LABS: Absolute Lymphocytes (CBC) 1.5 K/uL (0.7-4.9); Lymphocytes % 29.3 % (15.3-44.8); MPV 8.6 fL (7.6-11.3); RBC Red Blood Cell Count 4.45 M/uL (3.86-4.86)
[2022-01-12 15:09] LABS: Protime INR 0.96
--- NOTE | 2022-01-12 15:13 | RAD REPORT ---
EXAM DESCRIPTION: Marcy Single View01/12/2022 2:49 pm CLINICAL HISTORY: Chest pain COMPARISON: 2017 FINDINGS: The lungs appear clear of acute infiltrate. The heart is normal size IMPRESSION: No acute abnormalities displayed
[2022-01-12 15:14] LABS: Sodium Level 132 mmol/L (136-145)
[2022-01-12 15:28] LABS: ALT/SGPT 11 U/L (12-78); AST/SGOT 14 U/L (15-37); Albumin 4.1 g/dL (3.4-5.0); Alkaline Phosphatase 71 U/L (45-117); BUN Blood Urea Nitrogen 9 mg/dL (7-18); Bicarbonate 23 mmol/L (21-32); Bilirubin Direct 0.1 mg/dL (0-0.2); Bilirubin Total 0.8 mg/dL (0.2-1.0); Glucose Level 80 mg/dL (74-106); NT PRO-BNP 21 pg/mL (<125); Protein, Total 7.1 g/dL (6.4-8.2)
[2022-01-12 15:30] LABS: Troponin High Sensitivity < 3.0 pg/mL (<58.9)
[2022-01-12 16:59] LABS: Urine Blood Negative (Negative); Urine Glucose Negative (Negative); Urine Protein Negative (Negative)
[2022-01-12] MEDS ORDERED: MORPHINE 2 MG/ML SYR ONE (18:07)
--- NOTE | 2022-01-12 18:54 | RAD REPORT ---
EXAM DESCRIPTION: CT - Angio Aorta For Dissection - 01/12/2022 6:33 pm CLINICAL HISTORY: . Chest and abd pain COMPARISON: 2017 TECHNIQUE: Computed tomography angiography of the chest, abdomen pelvis were obtained. 100 cc Isovue 370 was administered intravenously. Coronal and sagittal reconstruction were performed. MIP 3D reconstruction was performed All CT scans are performed using dose optimization technique as appropriate and may include automated exposure control or mA/KV adjustment according to patient size. FINDINGS: An aortic dissection is not seen. An aortic aneurysm is not displayed. The celiac, SMA and PEDRO are patent . A lung consolidation is not present. A pericardial effusion is not seen. A pleural effusion is not no brandi. The spleen, pancreas,adrenals and kidneys demonstrate no significant abnormality. Mild fatty liver There no evidence diverticulitis. Normal appendix IMPRESSION: Negative for an aortic dissection.
--- NOTE | 2022-01-12 19:13 | ER ---
Nurse's Notes [facility] Name: Melba Hnery Age: 56 yrs Sex: Female : 1965 Arrival Date: 01/12/2022 Time: 13:19 Bed 28 Private MD: Diagnosis: Chest pain, unspecified Presentation: 01/12 13:28 Chief complaint: Patient states: "I woke up not being able to take a deep breath. Its ab2 painful on the left side of my back. I'm nauseous and lightheaded and my left hand is tingling." Pt c/o pain on inspiration. Pt denies chest pain and SOB. Coronavirus screen: Vaccine status: Patient reports receiving the 2nd dose of the covid vaccine. Client denies travel out of the [place] in the last 14 days. At this time, the client does not indicate any symptoms associated with coronavirus-19. Ebola Screen: Patient negative for fever greater than or equal to 101.5 degrees Fahrenheit, and additional compatible Ebola Virus Disease symptoms Patient denies exposure to infectious person. Patient denies travel to an Ebola-affected area in the 21 days before illness onset. No symptoms or risks identified at this time. Initial Sepsis Screen: Does the patient meet any 2 criteria? No. Patient's initial sepsis screen is negative. Does the patient have a suspected source of infection? No. Patient's initial sepsis screen is negative. Risk Assessment: Do you want to hurt yourself or someone else? Patient reports no desire to harm self or others. Onset of symptoms is unknown. 13:28 Method Of Arrival: Ambulatory ab2 13:28 Acuity: MEGHNA 3 ab2 Triage Assessment: 13:34 General: Appears in no apparent distress. uncomfortable, Behavior is calm, cooperative, ab2 appropriate for age. Pain: Complains of pain in left scapular area. GI: No deficits noted. Reports nausea. 13:34 Respiratory: Reports pain with respiration Airway is patent Respiratory effort is even, ab2 unlabored, Respiratory pattern is regular, symmetrical. Historical: - Allergies: 13:33 NKDA; ab2 - PMHx: 13:33 Anxiety; Gastric Reflux; ab2 - Immunization history:: Adult Immunizations up to date. - Social history:: Smoking status: Patient denies any tobacco usage or history of. Screenin:40 Abuse screen: Denies threats or abuse. Denies injuries from another. Nutritional bp screening: No deficits noted. Tuberculosis screening: No symptoms or risk factors identified. Fall Risk None identified. Assessment: 13:40 General: SEE TRIAGE NOTE. bp 15:14 Reassessment: PT RETURNED FROM RAD. GI: Abdomen is non-distended. bp 17:40 Reassessment: No changes from previously documented assessment. Patient and/or family bp updated on plan of care and expected duration. Pain level reassessed. REPEAT TROP DUE AT 1800. 18:28 Reassessment: REPEAT TROP SENT. PT TO CT. bp 19:18 Reassessment: PT D/C HOME AMBULATORY, DX WITH NONCARDIAC CHEST PAIN. bp Vital Signs: 13:28 BP 124 / 64; Pulse 73; Resp 17; Temp 98.1; Pulse Ox 99% on R/A; Weight 52.62 kg; Height ab2 5 ft. 1 in. (154.94 cm); Pain 0/10; 15:12 BP 114 / 80; Pulse 66; Resp 16; Pulse Ox 100% ; bp 17:40 BP 115 / 66; Pulse 60; Resp 16; Pulse Ox 100% ; bp 18:29 BP 112 / 72; Pulse 70; Resp 16; Pulse Ox 100% ; bp 13:28 Body Mass Index 21.92 (52.62 kg, 154.94 cm) ab2 ED Course: 13:19 Patient arrived in ED. as 13:33 Triage completed. ab2 13:34 Arm band placed on right wrist. ab2 13:40 Patient has correct armband on for positive identification. Bed in low position. Call bp light in reach. Side rails up X2. 13:41 Robson Monreal, DAVID is Primary Nurse. bp 13:41 Jorge Mathis PA is PHCP. cp 13:41 Sunny Handley MD is Attending Physician. cp 14:40 Inserted saline lock: 22 gauge in left forearm, using aseptic technique. Blood bp collected. 14:50 XRAY Chest (1 view) In Process Unspecified. EDMS 18:34 CT Aorta for Dissection In Process Unspecified. EDMS 19:10 Joao Stack MD is Referral Physician. cp 19:18 No provider procedures requiring assistance completed. IV discontinued, intact, bp bleeding controlled, No redness/swelling at site. Pressure dressing applied. Administered Medications: 14:40 Drug: Aspirin Chewable Tablet 324 mg Route: PO; bp 16:30 Follow up: Response: No adverse reaction bp 14:40 Drug: Zofran (Ondansetron) 4 mg Route: IVP; Site: left forearm; bp 16:30 Follow up: Response: No adverse reaction bp 14:40 Drug: Pepcid (famotidine) 20 mg Route: IVP; Site: left forearm; bp 16:30 Follow up: Response: No adverse reaction bp 14:40 Drug: Ketorolac 15 mg Route: IVP; Site: left forearm; bp 16:30 Follow up: Response: No adverse reaction bp 18:00 Drug: morphine 2 mg Route: IVP; Site: left forearm; bp 19:02 Follow up: Response: No adverse reaction; Pain is decreased bp Outcome: 19:12 Discharge ordered by MD. cp 19:18 Discharged to home ambulatory. bp 19:18 Condition: stable 19:18 Discharge instructions given to patient, Instructed on discharge instructions, follow up and referral plans. medication usage, Demonstrated understanding of instructions, follow-up care, medications, Prescriptions given X 1. 19:19 Patient left the ED. bp Signatures: Dispatcher [employer] EDMS Maggie Love Corey, PA PA cp Peltier, Brian, RN RN Heriberto Guerrero ab2 Corrections: (The following items were deleted from the chart) 13:34 13:33 PMHx: Hypothyroidism; ab2 ab2
--- NOTE | 2022-01-12 19:13 | EDPHYS ---
Physician Documentation [facility] Name: Melba Henry Age: 56 yrs Sex: Female : 1965 Arrival Date: 01/12/2022 Time: 13:19 Bed 28 Private MD: ED Physician Sunny Handley HPI: 01/12 14:00 This 56 yrs old Female presents to ER via Ambulatory with complaints of Nausea, cp Dizziness, Shortness Of Breath. 14:00 The patient or guardian reports chest pain that is located primarily in the anterior cp chest wall, left. Onset: last night, and became worse today. The pain radiates to left back. 14:00 The chest pain is described as sharp. cp 14:00 Associated signs and symptoms: Pertinent positives: dizziness, nausea, numbness of left cp arm, Pertinent negatives: abdominal pain, cough, diaphoresis, headache, lower extremity pain, lower extremity swelling, syncope, vomiting. Duration: The patient or guardian reports a single episode, that is still ongoing. Modifying factors: the symptoms are aggravated by deep breath, movement. Historical: - Allergies: 13:33 NKDA; ab2 - PMHx: 13:33 Anxiety; Gastric Reflux; ab2 - Immunization history:: Adult Immunizations up to date. - Social history:: Smoking status: Patient denies any tobacco usage or history of. ROS: 14:05 Constitutional: Negative for chills, fever, poor PO intake. cp 14:05 Eyes: Negative for injury, pain, redness, and discharge. cp 14:05 ENT: Negative for drainage from ear(s), ear pain, sore throat, difficulty swallowing, difficulty handling secretions. 14:05 Neck: Negative for pain with movement, pain at rest, stiffness. 14:05 Cardiovascular: Positive for chest pain, of the left side of chest, Negative for edema, palpitations. 14:05 Respiratory: Positive for shortness of breath, Negative for cough, wheezing. 14:05 Abdomen/GI: Negative for abdominal pain, nausea, vomiting, and diarrhea. 14:05 Back: Positive for radiated pain, of the left scapular area and left subscapular area, Negative for injury or acute deformity, decreased range of motion. 14:05 Skin: Negative for cellulitis, rash. 14:05 Neuro: Positive for dizziness, Negative for altered mental status, headache, syncope, weakness. 14:05 All other systems are negative. Exam: 14:12 ECG was reviewed by the Attending Physician. cp 14:15 Constitutional: The patient appears in no acute distress, alert, awake, cp non-diaphoretic, non-toxic, well developed, well nourished. 14:15 Head/Face: Normocephalic, atraumatic. cp 14:15 Eyes: Periorbital structures: appear normal, Conjunctiva: normal, no exudate, no injection, Sclera: no appreciated abnormality, Lids and lashes: appear normal, bilaterally. 14:15 ENT: External ear(s): are unremarkable, Nose: is normal, Mouth: Lips: moist, Oral mucosa: pink and intact, moist, Posterior pharynx: Airway: no evidence of obstruction, patent. 14:15 Neck: ROM/movement: is normal, is supple, without pain, no range of motions limitations. 14:15 Chest/axilla: Inspection: normal, Palpation: crepitus, is not appreciated, tenderness, is not appreciated. 14:15 Cardiovascular: Rate: normal, Rhythm: regular, Heart sounds: murmur, not appreciated, Edema: is not appreciated, JVD: is not appreciated. 14:15 Respiratory: the patient does not display signs of respiratory distress, Respirations: normal, no use of accessory muscles, no retractions, labored breathing, is not present, Breath sounds: are clear throughout, no decreased breath sounds, no stridor, no wheezing. 14:15 Abdomen/GI: Inspection: abdomen appears normal, Bowel sounds: active, all quadrants, Palpation: abdomen is soft and non-tender, in all quadrants. 14:15 Back: pain, that is moderate, of the left scapular area and left subscapular area, ROM is normal, vertebral tenderness, is not appreciated. 14:15 Neuro: Orientation: to person, place \T\ time. Mentation: is normal, Motor: moves all fours, strength is normal, Sensation: is normal. Vital Signs: 13:28 BP 124 / 64; Pulse 73; Resp 17; Temp 98.1; Pulse Ox 99% on R/A; Weight 52.62 kg; Height ab2 5 ft. 1 in. (154.94 cm); Pain 0/10; 15:12 BP 114 / 80; Pulse 66; Resp 16; Pulse Ox 100% ; bp 17:40 BP 115 / 66; Pulse 60; Resp 16; Pulse Ox 100% ; bp 18:29 BP 112 / 72; Pulse 70; Resp 16; Pulse Ox 100% ; bp 13:28 Body Mass Index 21.92 (52.62 kg, 154.94 cm) ab2 MDM: 13:46 Patient medically screened. cp 14:00 Differential diagnosis: abnormal EKG, acute myocardial infarction, acute pericarditis, cp cholecystitis, Cholelithiasis myocarditis, pleurisy, pneumonia, pneumothorax, pulmonary embolus, stable angina, thoracic aortic disection, unstable angina. 19:10 The patient was given aspirin in the Emergency Department. cp 19:10 Data reviewed: vital signs, nurses notes, lab test result(s), EKG, radiologic studies, cp CT scan, plain films. Test interpretation: by ED physician or midlevel provider: ECG, plain radiologic studies. Counseling: I had a detailed discussion with the patient and/or guardian regarding: the historical points, exam findings, and any diagnostic results supporting the discharge/admit diagnosis, lab results, radiology results, the need for outpatient follow up, a automatic mounter, to return to the emergency department if symptoms worsen or persist or if there are any questions or concerns that arise at home. Response to treatment: the patient's symptoms have mildly improved after treatment, and as a result, I will discharge patient. Special discussion: Based on the patient's history, exam, and Dx evaluation, there is no indication for emergent intervention or inpatient Tx. It is understood by the patient/guardian that if the Sx's persist or worsen they need to return immediately for re-evaluation. ED course: VSS. Pain mildly improved with meds. Reviewed results of labs, EKG and radiology studies. initial and repeat troponin negative. Will discharge to home for continued monitoring. 01/12 13:52 Order name: Basic Metabolic Panel; Complete Time: 15:46 01/12 15:46 Interpretation: Normal except: NA 132; GFR 87. 01/12 13:52 Order name: CBC with Diff; Complete Time: 15:46 01/12 16:23 Interpretation: Reviewed. 01/12 13:52 Order name: D-Dimer; Complete Time: 15:46 01/12 16:23 Interpretation: D-DIMER 322; Reviewed. 01/12 13:52 Order name: LFT's; Complete Time: 15:46 cp 01/12 15:46 Interpretation: Normal except: AST 14; ALT 11. cp 01/12 13:52 Order name: Magnesium; Complete Time: 15:46 cp 01/12 13:52 Order name: NT PRO-BNP; Complete Time: 15:46 cp 01/12 13:52 Order name: PT-INR; Complete Time: 15:46 cp 01/12 16:23 Interpretation: Reviewed. cp 01/12 13:52 Order name: Troponin HS; Complete Time: 15:46 cp 01/12 15:47 Interpretation: Troponin HS < 3.0; Reviewed. cp 01/12 13:52 Order name: XRAY Chest (1 view); Complete Time: 15:46 cp 01/12 16:24 Interpretation: Report reviewed. cp 01/12 16:59 Order name: Urine Dipstick-Ancillary; Complete Time: 17:09 EDMS 01/12 19:00 Interpretation: Normal except: UESTR Trace. cp 01/12 17:42 Order name: Troponin HS; Complete Time: 18:58 bp 01/12 18:59 Interpretation: Reviewed. 01/12 17:48 Order name: CT Aorta for Dissection; Complete Time: 18:58 cp 01/12 13:52 Order name: EKG; Complete Time: 13:53 cp 01/12 13:52 Order name: Cardiac monitoring; Complete Time: 14:46 cp 01/12 13:52 Order name: EKG - Nurse/Tech; Complete Time: 14:46 cp 01/12 13:52 Order name: IV Saline Lock; Complete Time: 14:46 cp 01/12 13:52 Order name: Labs collected and sent; Complete Time: 14:46 cp 01/12 13:52 Order name: O2 Per Protocol; Complete Time: 14:46 cp 01/12 13:52 Order name: O2 Sat Monitoring; Complete Time: 14:46 cp 01/12 13:52 Order name: Urine Dipstick-Ancillary (obtain specimen); Complete Time: 17:41 cp 01/12 13:52 Order name: Urine Test (obtain specimen); Complete Time: 17:41 cp 01/12 17:48 Order name: Diet Gluten Free; Complete Time: 17:48 cp EC:12 Rate is 70 beats/min. Rhythm is regular. KS interval is normal. QRS interval is normal. cp QT interval is normal. T waves are Inverted in leads aVL, aVR. Interpreted by me. Reviewed by me. Administered Medications: 14:40 Drug: Aspirin Chewable Tablet 324 mg Route: PO; bp 16:30 Follow up: Response: No adverse reaction bp 14:40 Drug: Zofran (Ondansetron) 4 mg Route: IVP; Site: left forearm; bp 16:30 Follow up: Response: No adverse reaction bp 14:40 Drug: Pepcid (famotidine) 20 mg Route: IVP; Site: left forearm; bp 16:30 Follow up: Response: No adverse reaction bp 14:40 Drug: Ketorolac 15 mg Route: IVP; Site: left forearm; bp 16:30 Follow up: Response: No adverse reaction bp 18:00 Drug: morphine 2 mg Route: IVP; Site: left forearm; bp 19:02 Follow up: Response: No adverse reaction; Pain is decreased bp Disposition: 01/13 15:41 Co-signature as Attending Physician, Sunny Handley MD I agree with the assessment and kdr plan of care. 15:41 Co-signature as Attending Physician, Sunny Handley MD. kdr Disposition Summary: 01/12/22 19:12 Discharge Ordered Location: Home cp Problem: new cp Symptoms: have improved cp Condition: Stable cp Diagnosis - Chest pain, unspecified cp Followup: cp - With: Joao Stack MD - When: 2 - 3 days - Reason: Recheck today's complaints Discharge Instructions: - Discharge Summary Sheet cp - Nonspecific Chest Pain, Adult cp - Aspirin and Your Heart cp Forms: - Medication Reconciliation Form cp - Thank You Letter cp - Antibiotic Education cp - Prescription Opioid Use cp Prescriptions: - ketorolac 10 mg Oral tablet - take 1 tablet by ORAL route every 6 hours for 5 days not to exceed 40 mg in cp 24hrs; 20 tablet; Refills: 0, Product Selection Permitted Signatures: Dispatcher [employer] EDSD Sunny Handley MD MD kdr Jorge Mathis PA PA cp Robson Monreal, RN RN Heriberto Guerrero ab2 Corrections: (The following items were deleted from the chart) 01/12 13:34 13:33 PMHx: Hypothyroidism; ab2 ab2
[2022-01-12 19:27] VITALS: TEMP 98.1
[2022-01-12 19:28] VITALS: O2SAT 100
[2022-01-12 19:31] VITALS: BP 112/72
--- NOTE | 2022-01-13 09:45 | EKG ---
Test Date: 2022-01-12 Test Time: 14:07:22 Brick Sorter: MEASUREMENT RESULTS: Intervals: Rate: 70 MD: 158 QRSD: 80 QT: 392 QTc: 423 [place]: P: 77 MD: 158 QRS: 50 T: 69 INTERPRETIVE STATEMENTS: Normal sinus rhythm Normal ECG Compared to ECG 03/12/2014 12:41:06 No significant changes Electronically Signed On 01-13-22 09:43:57 CDT by Joao Stack
== END 2022-01-12 19:19 | disposition home or self-care (01) ==
LOC: ER 13:18
DX: R07.9 Chest pain, unspecified (principal); R20.0 Anesthesia of skin; R11.0 Nausea
CPT/HCPCS: 93005; 85025; 80048; 36415; 83735; 85610; 85379; 80076; 81003; 84484 ×2; 83880; 71275; 74175; 71045; 96375; 96374; 99284; Q9967; J2270; J2405; J3490

== ENCOUNTER 2023-04-17 11:39 | Emergency (ER) | payer OTHER ==
--- OUTSIDE RECORDS SUMMARY | 2023-04-17 11:44 | XMS REPORT | Continuity of Care Document ---
:1965 Author Organization [facility] t Address [address] [place] [address] [place] [id number] Care Team Providers Name Role Phone Glenny Garcia MD, Dante Primary Care Physician [phone] LINA LIGHT Attending Clinician Unavailable Kuldeep MENDOZA, Lina Guerrero Attending Clinician Ritter MENDOZA, Rafael Luna Attending Clinician Joaquim MENDOZA, Heather Baer Attending Clinician Toney Cuevas Attending Clinician Unavailable LINA LIGHT Admitting Clinician Unavailable Physician, No Primary or Family Admitting Clinician Unavaila ble Payers Payer Name Policy Type Policy Number Effective Date Expiration Date S ource Problems Condition Condition Condition Status Onset Resolution Last Treating Co mments Source Name Details Category Date Date Treatment Clinician Date No known No known Disease Metho di active active st problems problems Hospit a l Chondromal Chondromal Diagnosis Active Common acia acia Spirit patellae patellae - [facility] of right of right knee knee [facility] Chondromal Chondromal Diagnosis Active Common acia acia Spirit patellae patellae - [facility] of left of left knee [facility] Pain, Pain, Diagnosis Active Common joint, joint, Spirit shoulder, shoulder, - CH I left left [facility] Subacromia Subacromia Diagnosis Active Common l bursitis l bursitis Sp richard of left of left - CHI shoulder shoulder St joint joint [facility] Allergies, Adverse Reactions, Alerts Allergy Allergy Status Severity Reaction(s) Onset Inactive Treating Comm ents Source Name Type Date Date Clinician Lisa Sanders Active Other (See "SKIN Me thodi xacin ty to Comments) 2- CRAWLING st adverse 00:00: AND Hospita reaction 00 INABILITY l s to TO RELAX" drug NO KNOWN Allergy Active [facility] ALLERGIE [facility] NO KNOWN Drug Active [facility] ALLERGIE Class ity of [facility] Family History Family Member Diagnosis Comments Start Date Stop Date Source Natural father Dementia [facility] Natural father Parkinsonism [facility] Natural mother Heart disease [facility] Natural mother Stroke [facility] Social History Social Habit Start Date Stop Date Quantity Comments Source History [facility] Alcohol Std Drinks Hospit al History [facility] History of tobacco Cigarette Smoker [facility] use [facility] Gender identity [facility] Sexual orientation [facility] Alcohol intake 2023-03-08 2023-03-08 Ex-drinker [facility] 00:[facility]00 00:[facility]00 (finding[facility] Exposure to 2023-02-25 2023-03-[address] [facility] SARS-CoV-2 (event) 00:00:00 10:32:00 [facility] Tobacco use and 2023-02-13 2023-02-[address] [facility] [facility] exposure 00:00:00 00:00:00 tobacco non-user [facility] Tobacco Comment 2023-02-13 2023-02-13 Quit [address] [facility] 00:00:00 00:00:00 ago [facility] History of Social 2019-05-07 2019-05-[address] function 00:00:00 00:00:00 Hospital History SDOH 2018-11-17 2018-11-17 1 [facility] Alcohol Frequency 00:00:00 00:00:00 Hospita l Cigarettes smoked 2018-11-06 2018-11-[address] current (pack per 00:00:00 00:00:00 Hospita l day) - Reported Sex Assigned At [address] [facility] 00:[facility]00 [facility] Center Smoking Status Start Date Stop Date Source Ex-smoker 2023-02-13 00:00:00 2023-02-13 00:00:00 [facility] Medications Ordered Filled Start Stop Current Ordering Indication Dosage Frequency Signature Comments Components Source Medication Medication Date Date Medication? Clinician (SIG) Name Name LORazepam Yes 2mg QD Take [address] (ATIVAN) 2 6-26 tablet (2 Luke s MG tablet 00:00: mg total) Med ical 00 by mouth Center nightly. Max Daily Amount: 2 mg LORazepam 2022-0 Yes 2mg QD Take [address] (ATIVAN) 2 6-26 tablet (2 Luke s MG tablet 00:00: mg total) Med ical 00 by mouth Center nightly. Max Daily Amount: 2 mg LORazepam 2022-0 Yes 2mg QD Take [address] (ATIVAN) 2 6-26 tablet (2 Luke s MG tablet 00:00: mg total) Med ical 00 by mouth Center nightly. Max Daily Amount: 2 mg albuterol Yes 1{puff} Inhale [address] HFA 03-08 puff by Lukes (VENTOLIN 18:10: mouth via Med ical HFA) 90 04 inhaler Center mcg/actuati every 6 on inhaler (six) hours as needed for Wheezing. fluticasone Yes Inhale by C [facility] /vilanterol 03-08 mouth via Thad es (BREO 18:10: inhaler as Medica l ELLIPTA 04 needed. Center INHL) PROGESTERON Yes QD Take by [facility] St E 03-08 mouth Lukes MICRONIZED 18:10: daily. Medic al ORAL 04 Center fluticasone Yes 1{spray QD 1 spray by [facility] propionate 03-08 } Nasal Lukes (FLONASE) 18:10: route Medical 50 04 daily. Center mcg/actuati on nasal spray azelastine Yes 1{spray Q.5D 1 spray by [facility] (ASTELIN) 03-08 } Nasal Lukes 137 mcg 18:10: route 2 Medical (0.1 %) 04 (two) Center nasal spray times daily Use in each nostril as directed. diphenoxyla Yes Take by [facility] te 6-23 mouth as Lukes HCl/atropin 18:10: needed. Med ical e (LOMOTIL 04 Center ORAL) CYANOCOBALA Yes Take by [facility] MIN, 6-23 mouth. Lukes VITAMIN 18:10: Medical B-12, ORAL 04 Center albuterol Yes 1{puff} Inhale [address] HFA 6-23 puff by Lukes (VENTOLIN 18:10: mouth via Med ical HFA) 90 04 inhaler Center mcg/actuati every 6 on inhaler (six) hours as needed for Wheezing. fluticasone Yes Inhale by C HI [facility] /vilanterol 6-23 mouth via Thad es (BREO 18:10: inhaler as Medica l ELLIPTA 04 needed. Center INHL) PROGESTERON Yes QD Take by [facility] E - mouth Lukes MICRONIZED 18:10: daily. Medic al ORAL 04 Center fluticasone Yes 1{spray QD [address] propionate 03-08 } Nasal Lukes (FLONASE) 18:10: route Medical 50 04 daily. Center mcg/actuati on nasal spray azelastine Yes 1{spray Q.5D [address] (ASTELIN) 03-08 } Nasal Lukes 137 mcg 18:10: route 2 Medical (0.1 %) 04 (two) Center nasal spray times daily Use in each nostril as directed. diphenoxyla Yes Take by [facility] te 6-23 mouth as Lukes HCl/atropin 18:10: needed. Med ical e (LOMOTIL 04 Center ORAL) CYANOCOBALA Yes Take by [facility] MIN, 6-23 mouth. Lukes VITAMIN 18:10: Medical B-12, ORAL 04 Center albuterol Yes 1{puff} Inhale [address] HFA 6-23 puff by Lukes (VENTOLIN 18:10: mouth via Med ical HFA) 90 04 inhaler Center mcg/actuati every 6 on inhaler (six) hours as needed for Wheezing. fluticasone Yes Inhale by C HI [facility] /vilanterol 6-23 mouth via Thad es (BREO 18:10: inhaler as Medica l ELLIPTA 04 needed. Center INHL) PROGESTERON Yes QD Take by [facility] E 03-08 mouth Lukes MICRONIZED 18:10: daily. Medic al ORAL 04 Center fluticasone 0 Yes 1{spray QD [address] [facility] St propionate 03-08 } Nasal Lukes (FLONASE) 18:10: route Medical 50 04 daily. [place] mcg/actuati on nasal spray azelastine Yes 1{spray Q.5D [address] [facility] St (ASTELIN) 03-08 } Nasal Lukes 137 mcg 18:10: route 2 Medical (0.1 %) 04 (two) Center nasal spray times daily Use in each nostril as directed. diphenoxyla Yes Take by [facility] te 03-08 mouth as Lukes HCl/atropin 18:10: needed. Med ical e (LOMOTIL 04 Center ORAL) CYANOCOBALA Yes Take by [facility] MIN, 03-08 mouth. Lukes VITAMIN 18:10: Medical B-12, ORAL 04 Center LORazepam 2022-0 2022- No 2mg QD Take 1 [facility]I S t (ATIVAN) 2 03-08-22 tablet (2 Thad es MG tablet 18:10: 00:00 mg total) Me dical 04 :00 by mouth Center nightly. Max Daily Amount: 2 mg LORazepam 2022-0 2022- No 2mg QD Take 1 [facility]I [facility] t (ATIVAN) 2 03-08-22 tablet (2 Thad es MG tablet 18:10: 00:00 mg total) Me dical 04 :00 by mouth Center nightly. Max Daily Amount: 2 mg LORazepam 2022-0 2022- No 2mg QD Take 1 [facility]I S t (ATIVAN) 2 03-08-22 tablet (2 Thad es MG tablet 18:10: 00:00 mg total) Me dical 04 :00 by mouth Center nightly. Max Daily Amount: 2 mg CYANOCOBALA 2022-0 Yes Take by [facility] MIN, 5-31 mouth. Lukes VITAMIN 11:17: Medical B-12, ORAL 14 Center CYANOCOBALA 0 Yes Take by [facility] MIN, 5-31 mouth. Lukes VITAMIN 11:17: Medical B-12, ORAL 14 Center CYANOCOBALA 0 Yes Take by [facility] MIN, 5-31 mouth. Lukes VITAMIN 11:17: Medical B-12, ORAL 14 Center CYANOCOBALA 2022-0 Yes Take by [facility] MIN, 5-31 mouth. Lukes VITAMIN 11:17: Medical B-12, ORAL 14 Center diphenoxyla 2022-0 Yes Take by [facility] te 5-31 mouth as Lukes HCl/atropin 11:07: needed. Med ical e (LOMOTIL 16 Center ORAL) diphenoxyla 2022-0 Yes Take by [facility] te 5-31 mouth as Lukes HCl/atropin 11:07: needed. Med ical e (LOMOTIL 16 Center ORAL) diphenoxyla 2022-0 Yes Take by [facility] te 5-31 mouth as Lukes HCl/atropin 11:07: needed. Med ical e (LOMOTIL 16 Center ORAL) diphenoxyla 2022-0 Yes Take by [facility] te 5-31 mouth as Lukes HCl/atropin 11:07: needed. Med ical e (LOMOTIL 16 Center ORAL) fluticasone 2022-0 Yes 1{spray QD [address] propionate 5-31 } Nasal Lukes (FLONASE) 11:04: route in Medi lilibeth 50 40 the Center mcg/actuati morning. on nasal spray azelastine 2022-0 Yes 1{spray Q.5D [address] (ASTELIN) 5-31 } Nasal Lukes 137 mcg 11:04: route in Medica l (0.1 %) 40 the Center nasal spray morning and 1 spray before bedtime. Use in each nostril as directed. fluticasone 2022-0 Yes 1{spray QD [address] propionate 5-31 } Nasal Lukes (FLONASE) 11:04: route in Medi lilibeth 50 40 the Center mcg/actuati morning. on nasal spray azelastine 2022-0 Yes 1{spray Q.5D [address] (ASTELIN) 5-31 } Nasal Lukes 137 mcg 11:04: route in Medica l (0.1 %) 40 the Center nasal spray morning and 1 spray before bedtime. Use in each nostril as directed. fluticasone Yes 1{spray QD [address] propionate 5-31 } Nasal Lukes (FLONASE) 11:04: route in Medi lilibeth 50 40 the Center mcg/actuati morning. on nasal spray azelastine 0 Yes 1{spray Q.5D [address] (ASTELIN) 5-31 } Nasal Lukes 137 mcg 11:04: route in Medica l (0.1 %) 40 the Center nasal spray morning and 1 spray before bedtime. Use in each nostril as directed. fluticasone Yes 1{spray QD [address] propionate 5-31 } Nasal Lukes (FLONASE) 11:04: route in Medi lilibeth 50 40 the Center mcg/actuati morning. on nasal spray azelastine Yes 1{spray Q.5D [address] (ASTELIN) 5-31 } Nasal Lukes 137 mcg 11:04: route in Medica l (0.1 %) 40 the Center nasal spray morning and 1 spray before bedtime. Use in each nostril as directed. albuterol Yes 1{puff} Inhale [address] HFA 5-31 puff by Lukes (VENTOLIN 11:03: mouth via Med ical HFA) 90 42 inhaler Center mcg/actuati every 6 on inhaler (six) hours as needed for Wheezing. fluticasone Yes Inhale by C HI St /vilanterol 5-31 mouth via Thad es (BREO 11:03: inhaler as Medica l ELLIPTA 42 needed. Center INHL) PROGESTERON Yes QD Take by [facility] E 5-31 mouth Lukes MICRONIZED 11:03: daily. Medic al ORAL 42 Center albuterol 0 Yes 1{puff} Inhale [address] HFA 5-31 puff by Lukes (VENTOLIN 11:03: mouth via Med ical HFA) 90 42 inhaler Center mcg/actuati every 6 on inhaler (six) hours as needed for Wheezing. fluticasone 0 Yes Inhale by C HI [facility] /vilanterol 5-31 mouth via Thad es (BREO 11:03: inhaler as Medica l ELLIPTA 42 needed. [facility]) PROGESTERON Yes QD Take by [facility] E 5-31 mouth Lukes MICRONIZED 11:03: daily. Medic al ORAL 42 Center albuterol Yes 1{puff} Inhale [address] HFA 5-31 puff by Lukes (VENTOLIN 11:03: mouth via Med ical HFA) 90 42 inhaler Center mcg/actuati every 6 on inhaler (six) hours as needed for Wheezing. fluticasone Yes Inhale by C HI St /vilanterol 5-31 mouth via Thad es (BREO 11:03: inhaler as Medica l ELLIPTA 42 needed. [facility]) PROGESTERON Yes QD Take by [facility] E 5-31 mouth Lukes MICRONIZED 11:03: daily. Medic al ORAL 42 Center albuterol Yes 1{puff} Inhale [address] HFA 5-31 puff by Lukes (VENTOLIN 11:03: mouth via Med ical HFA) 90 42 inhaler Center mcg/actuati every 6 on inhaler (six) hours as needed for Wheezing. fluticasone Yes Inhale by C HI St /vilanterol 5-31 mouth via Thad es (BREO 11:03: inhaler as Medica l ELLIPTA 42 needed. [facility]) PROGESTERON Yes QD Take by [facility] E 5-31 mouth Lukes MICRONIZED 11:03: daily. Medic al ORAL 42 Center DM/p-ephed/ Yes QD Take by Met hodi acetaminoph 3-[address] /doxylam 13:52: nightly. Hospi ta (NYQUIL D 35 l ORAL) famotidine Yes 20mg QD Take 20 mg M ethodi (PEPCID) 20 3-[address] MG tablet 13:52: daily. Hospit a 35 l ascorbate Yes 1{tbl} QD Take 1 Meth carlos calcium 3-[address] (VITAMIN C 13:52: mouth Hospit a ORAL) 35 daily. l multivitami Yes 1{tbl} QD Take 1 Me thodi n 3-[address] (THERAGRAN) 13:52: mouth Hospi ta tablet 35 daily. l DM/p-ephed/ 2018-0 Yes QD Take by Met hodi acetaminoph 3-[address] /doxylam 13:52: nightly. Hospi ta (NYQUIL D 35 l ORAL) famotidine Yes 20mg QD Take 20 mg M ethodi (PEPCID) 20 3-[address] MG tablet 13:52: daily. Hospit a 35 l ascorbate Yes 1{tbl} QD Take 1 Meth carlos calcium 3-[address] (VITAMIN C 13:52: mouth Hospit a ORAL) 35 daily. l multivitami Yes 1{tbl} QD Take 1 Me thodi n 3-[address] (THERAGRAN) 13:52: mouth Hospi ta tablet 35 daily. l DM/p-ephed/ Yes QD Take by Met hodi acetaminoph 3-[address] /doxylam 13:52: nightly. Hospi ta (NYQUIL D 35 l ORAL) famotidine Yes 20mg QD Take 20 mg M ethodi (PEPCID) 20 3-[address] MG tablet 13:52: daily. Hospit a 35 l ascorbate Yes 1{tbl} QD Take 1 Meth carlos calcium 3-[address] (VITAMIN C 13:52: mouth Hospit a ORAL) 35 daily. l multivitami Yes 1{tbl} QD Take 1 Me thodi n 3-[address] (THERAGRAN) 13:52: mouth Hospi ta tablet 35 daily. l DM/p-ephed/ 0 Yes QD Take by Met hodi acetaminoph 3-[address] /doxylam 13:52: nightly. Hospi ta (NYQUIL D 35 l ORAL) famotidine Yes 20mg QD Take 20 mg M ethodi (PEPCID) 20 3-[address] MG tablet 13:52: daily. Hospit a 35 l ascorbate 2018-0 Yes 1{tbl} QD Take 1 Meth carlos calcium 3-[address] (VITAMIN C 13:52: mouth Hospit a ORAL) 35 daily. l multivitami Yes 1{tbl} QD Take 1 Me thodi n 3-[address] (THERAGRAN) 13:52: mouth Hospi ta tablet 35 daily. l pantoprazol Yes TAKE ONE Me thodi e 2-18 (1) st (PROTONIX) 00:00: TABLET(S) Ho spita 40 MG EC 00 BY MOUTH l tablet ONCE A DAY. pantoprazol Yes TAKE ONE Me thodi e 2-18 (1) st (PROTONIX) 00:00: TABLET(S) Ho spita 40 MG EC 00 BY MOUTH l tablet ONCE A DAY. pantoprazol Yes TAKE ONE Me thodi e 2-18 (1) st (PROTONIX) 00:00: TABLET(S) Ho spita 40 MG EC 00 BY MOUTH l tablet ONCE A DAY. pantoprazol Yes TAKE ONE Me thodi e 2-18 (1) st (PROTONIX) 00:00: TABLET(S) Ho spita 40 MG EC 00 BY MOUTH l tablet ONCE A DAY. albuterol Yes INHALE Method i (ACCUNEB) 2-15 THREE (3) st 2.5 mg /3 00:00: MLS VIA Hospi ta mL (0.083 00 NEBULIZER l %) EVERY FOUR nebulizer (4) HOURS solution NEEDED FOR WHEEZING OR SHORTNESS OF BREATH. PROVENTIL Yes INHALE TWO Me thodi HFA 90 2-15 (2) st mcg/actuati 00:00: PUFF(S) BY Hospita on inhaler 00 MOUTH l EVERY SIX HOURS NEEDED FOR WHEEZING OR SHORTNESS OF BREATH. fluticasone Yes INSTILL Met hodi (FLONASE) 2-15 TWO (2) st 50 00:00: SPRAY(S) Hospita mcg/actuati 00 INTO EACH l on nasal NOSTRIL spray ONCE A DAY. LORAZepam Yes TAKE ONE Meth carlos (ATIVAN) 2 2-15 (1) st MG tablet 00:00: TABLET(S) Hos eusebio 00 BY MOUTH l TWICE A DAY NEEDED FOR ANXIETY. albuterol Yes INHALE Method i (ACCUNEB) 2-15 THREE (3) st 2.5 mg /3 00:00: MLS VIA Hospi ta mL (0.083 00 NEBULIZER l %) EVERY FOUR nebulizer (4) HOURS solution NEEDED FOR WHEEZING OR SHORTNESS OF BREATH. PROVENTIL Yes INHALE TWO Me thodi HFA 90 2-15 (2) st mcg/actuati 00:00: PUFF(S) BY Hospita on inhaler 00 MOUTH l EVERY SIX HOURS NEEDED FOR WHEEZING OR SHORTNESS OF BREATH. fluticasone 2018- Yes INSTILL Met hodi (FLONASE) 2-15 TWO (2) st 50 00:00: SPRAY(S) Hospita mcg/actuati 00 INTO EACH l on nasal NOSTRIL spray ONCE A DAY. LORAZepam 2018- Yes TAKE ONE Meth carlos (ATIVAN) 2 2-15 (1) st MG tablet 00:00: TABLET(S) Hos eusebio 00 BY MOUTH l TWICE A DAY NEEDED FOR ANXIETY. albuterol Yes INHALE Method i (ACCUNEB) 2-15 THREE (3) st 2.5 mg /3 00:00: MLS VIA Hospi ta mL (0.083 00 NEBULIZER l %) EVERY FOUR nebulizer (4) HOURS solution NEEDED FOR WHEEZING OR SHORTNESS OF BREATH. PROVENTIL Yes INHALE TWO Me thodi HFA 90 2-15 (2) st mcg/actuati 00:00: PUFF(S) BY Hospita on inhaler 00 MOUTH l EVERY SIX HOURS NEEDED FOR WHEEZING OR SHORTNESS OF BREATH. fluticasone Yes INSTILL Met hodi (FLONASE) 2-15 TWO (2) st 50 00:00: SPRAY(S) Hospita mcg/actuati 00 INTO EACH l on nasal NOSTRIL spray ONCE A DAY. LORAZepam 2018- Yes TAKE ONE Meth carlos (ATIVAN) 2 2-15 (1) st MG tablet 00:00: TABLET(S) Hos eusebio 00 BY MOUTH l TWICE A DAY NEEDED FOR ANXIETY. albuterol 2018-0 Yes INHALE Method i (ACCUNEB) 2-15 THREE (3) st 2.5 mg /3 00:00: MLS VIA Hospi ta mL (0.083 00 NEBULIZER l %) EVERY FOUR nebulizer (4) HOURS solution NEEDED FOR WHEEZING OR SHORTNESS OF BREATH. PROVENTIL Yes INHALE TWO Me thodi HFA 90 2-15 (2) st mcg/actuati 00:00: PUFF(S) BY Hospita on inhaler 00 MOUTH l EVERY SIX HOURS NEEDED FOR WHEEZING OR SHORTNESS OF BREATH. fluticasone 0 Yes INSTILL Met hodi (FLONASE) 2-15 TWO (2) st 50 00:00: SPRAY(S) Hospita mcg/actuati 00 INTO EACH l on nasal NOSTRIL spray ONCE A DAY. LORAZepam Yes TAKE ONE Meth carlos (ATIVAN) 2 2-15 (1) st MG tablet 00:00: TABLET(S) Hos eusebio 00 BY MOUTH l TWICE A DAY NEEDED FOR ANXIETY. Lorazepam Lorazepam Yes Matteo not Co mmon Hernandes defined [facility] Azelastine Azelastine Yes Matteo not Common HCl HCl Hernandes defined [facility] Lomotil Lomotil Yes Matteo not Common Hernandes defined [facility] Zofran Zofran Yes Matteo not Common Hernandes defined [facility] Dymista Dymista Yes Matteo not Common Hernandes defined [facility] Vital Signs Vital Name Observation Time Observation Value Comments Source HEIGHT 2023-03-07 10:36:00 154.9 cm WEIGHT 2023-03-07 10:36:00 57.38 kg HEIGHT 2023-02-13 10:53:00 154.9 cm WEIGHT 2023-02-13 10:53:00 56.7 kg HEIGHT 2023-03-07 10:36:00 154.9 cm WEIGHT 2023-03-07 10:36:00 57.38 kg HEIGHT 2023-02-13 10:53:00 154.9 cm WEIGHT 2023-02-13 10:53:00 56.7 kg HEIGHT 2023-03-07 10:36:00 154.9 cm WEIGHT 2023-03-07 10:36:00 57.38 kg HEIGHT 2023-02-13 10:53:00 154.9 cm WEIGHT 2023-02-13 10:53:00 56.7 kg Systolic blood 2023-03-07 17:15:00 94 mm[Hg] [facility] Center Diastolic blood 2023-03-07 17:15:00 62 mm[Hg] [facility] Heart rate 2023-03-07 17:15:00 82 /min [facility] Body temperature 2023-03-07 17:15:00 36.78 Angelique [facility] Respiratory rate 2023-03-07 17:15:00 17 /min [facility] Oxygen saturation in 2023-03-07 17:15:00 95 /min [facility] Arterial blood by Medical Ce nter Pulse oximetry Body height 2023-03-07 10:36:00 154.9 cm [facility] Body weight 2023-03-07 10:36:00 57.38 kg [facility] BMI 2023-03-07 10:36:00 23.90 kg/m2 [facility] Body height 2023-02-13 10:53:00 154.9 cm [facility] Body weight 2023-02-13 10:53:00 56.7 kg [facility] BMI 2023-02-13 10:53:00 23.62 kg/m2 [facility] Procedures Procedure Date / Time Performed Performing Clinician Sour e ETHMOIDECTOMY 2023-03-08 12:30:00 Kuldeep [facility] MAXILLARY ANTROSTOMY, 2023-03-08 12:30:00 Kuldeep [facility] EXPLORATION, FRONTAL 2023-03-08 12:30:00 Kuldeep [facility] SINUS, [facility] PROCEDURE W/ INSTATRAK / 2023-03-08 12:30:[address] [facility] TISSUE EXAM 2023-03-07 14:57:00 Lina Light [facility] FUNGUS CULTURE + SMEAR 2023-03-07 14:54:11 Kuldeep [facility] ANAEROBIC CULTURE 2023-03-07 14:54:11 Lina Light [facility] SURGICALLY OBTAINED 2023-03-07 14:54:11 Kuldeep [facility] CULTURE + GRAM STAIN Medical Noel ter ETHMOIDECTOMY 2023-03-07 14:06:00 Kuldeep, [facility] MAXILLARY ANTROSTOMY, 2023-03-07 14:06:00 Kuldeep, [facility] ENDOSCOPIC [facility] EXPLORATION, FRONTAL 2023-03-07 14:06:00 Kuldeep, [facility] SINUS, ENDOSCOPIC [facility] PROCEDURE W/ INSTATRAK / 2023-03-07 14:06:00 Kuldeep, [facility] ETHMOIDECTOMY 2023-03-07 12:00:00 Kuldeep, [facility] MAXILLARY ANTROSTOMY, 2023-03-07 12:00:00 [facility] EXPLORATION, FRONTAL 2023-03-07 12:00:00 Kuldeep, [facility] SINUS, ENDOSCOPIC [facility] PROCEDURE W/ INSTATRAK / 2023-03-07 12:00:00 [facility] Plan of Care Planned Activity Planned Date Details Comments Source Future Scheduled 2024-03-[address] [facility] Test 00:00:00 Counseling and Screening [facility] (12+) [code = Tobacco Cessation Counseling and Screening (12+)] Future Scheduled 2024-03-[address] [facility] Test 00:00:00 Counseling and Screening [facility] (12+) [code = Tobacco Cessation Counseling and Screening (12+)] Future Scheduled 2024-03-[address] [facility] Test 00:00:00 Counseling and Screening [facility] (12+) [code = Tobacco Cessation Counseling and Screening (12+)] Future Scheduled 2024-02-[address] [facility] Test 00:00:00 Counseling and Screening [facility] (12+) [code = Tobacco Cessation Counseling and Screening (12+)] Future Scheduled 2023-05-17 Influenza Vaccine (#1) [facility] 00:00:00 [code = Influenza Vaccine Fl dical Center (#1)] Future Scheduled 2023-05-17 Influenza Vaccine (#1) [facility] 00:00:00 [code = Influenza Vaccine Me dical Center (#1)] Future Scheduled 2023-05-17 INFLUENZA VACCINE (Season [facility] Test 00:00:00 Ended) [code = INFLUENZA Med ical Center VACCINE (Season Ended)] Future Scheduled 2023-05-17 Influenza Vaccine (#1) [facility] 00:00:00 [code = Influenza Vaccine Me dical Center (#1)] Future Scheduled 2023-04-17 Screening for malignant [facility] 11:41:57 neoplasm of colon Hospital (procedure) [code = 654276277] Future Scheduled 2023-04-17 Screening for malignant [facility] Test 11:41:57 neoplasm of colon Hospital (procedure) [code = 638828879] Future Scheduled 2023-04-17 Screening for malignant [facility] Test 11:41:57 neoplasm of colon Hospital (procedure) [code = 538554495] Future Scheduled 2023-04-17 COVID-19 VACCINE (#1) [facility] Test 11:41:57 [code = COVID-19 VACCINE Hos pital (#1)] Future Scheduled 2023-04-17 Screening for malignant [facility] Test 11:41:57 neoplasm of cervix Hospital (procedure) [code = 202691932] Future Scheduled 2023-04-17 BREAST CANCER SCREENING [facility] 11:41:57 [code = BREAST CANCER Hospit al SCREENING] Future Scheduled 2023-04-17 Screening for malignant [facility] Test 11:41:57 neoplasm of colon Hospital (procedure) [code = 520269809] Future Scheduled 2023-04-17 Screening for malignant [facility] Test 11:41:57 neoplasm of colon Hospital (procedure) [code = 268105174] Future Scheduled 2023-04-17 SHINGLES VACCINES (1 of [facility] 11:41:57 2) [code = SHINGLES Hospital VACCINES (1 of 2)] Future Scheduled 2023-04-17 INFLUENZA VACCINE [code = [facility] 11:41:57 INFLUENZA VACCINE] Hospital Future Scheduled 2022-10-15 COVID-19 VACCINE (#1) [facility] Test 16:06:44 [code = COVID-19 VACCINE Hos pital (#1)] Future Scheduled 2022-10-15 Screening for malignant [facility] Test 16:06:44 neoplasm of cervix Hospital (procedure) [code = 389624297] Future Scheduled 2022-10-15 BREAST CANCER SCREENING [facility] [facility] 16:06[facility]44 [code = BREAST CANCER Hospit al SCREENING] Future Scheduled 2022-10-15 [facility]ONOSCOPY [facility]CREENING [facility] 16:06:44 [code = COLONOSCOPY Hospital SCREENING] Future Scheduled 2022-10-15 SHINGLES [facility]ACCINES ([facility] of [facility] 16:06:44 2) [code = SHINGLES Hospital VACCINES (1 of 2)] Future Scheduled 2022-10-15 INFLUENZA VACCINE [code = [facility] 16:06:44 INFLUENZA VACCINE] Hospital Future Scheduled 2022-09-[address] [facility] 00:00:00 (12+) [code = DEPRESSION Med ical Center SCREENING (12+)] Future Scheduled 2022-09-[address] [facility] 00:00:00 (12+) [code = DEPRESSION Med ical Center SCREENING (12+)] Future Scheduled 2022-09-[address] [facility] 00:00:00 (12+) [code = DEPRESSION Med ical Center SCREENING (12+)] Future Scheduled 2022-09-[address] [facility] 00:00:00 (12+) [code = DEPRESSION Med ical Center SCREENING (12+)] Future Scheduled 2022-09-09 COVID-19 VACCINE (#1) [facility] 08:04:01 [code = COVID-19 VACCINE Hos pital (#1)] Future Scheduled 2022-09-09 [facility] for malignant [facility] 08:04:01 neoplasm of cervix Hospital (procedure) [code = 856596809] Future Scheduled 2022-09-09 BREAST CANCER SCREENING [facility] 08:04:01 [code = BREAST CANCER Hospit al SCREENING] Future Scheduled 2022-09-09 [facility]OSCOPY [facility]CREENING [facility] 08:04:01 [code = COLONOSCOPY Hospital SCREENING] Future Scheduled 2022-09-09 SHINGLES VACCINES (1 [facility] 08:04:01 2) [code = SHINGLES Hospital VACCINES (1 of 2)] Future Scheduled 2022-09-09 INFLUENZA VACCINE [code = [facility] 08:04:01 INFLUENZA VACCINE] Hospital Future Scheduled 2022-05-19 [facility]ING [facility] 00:13:47 [code = COLONOSCOPY Hospital SCREENING] Future Scheduled 2022-05-19 SHINGLES VACCINES (1 of [facility] 00:13:47 2) [code = SHINGLES [facility] VACCINES (1 of 2)] Future Scheduled 2022-05-19 INFLUENZA VACCINE [code = [facility] 00:13:47 INFLUENZA VACCINE] Hospital Future Scheduled 2022-05-19 HEPATITIS B VACCINES (1 [facility] 00:13:47 of 3 - 3-dose series) Hospit al [code = HEPATITIS B VACCINES (1 of 3 - 3-dose series)] Future Scheduled 2022-05-19 COVID-19 VACCINE (#1) [facility] 00:13:47 [code = COVID-19 VACCINE Hos pital (#1)] Future Scheduled 2022-05-19 Screening for malignant [facility] 00:13:47 neoplasm of cervix Hospital (procedure) [code = 858378044] Future Scheduled 2022-05-19 BREAST CANCER SCREENING [facility] 00:13:47 [code = BREAST CANCER Hospit al SCREENING] Future Scheduled 2017 SHINGLES VACCINES ([address] [facility] 00:00:00 2) [code = SHINGLES [facility] VACCINES (1 of 2)] Future Scheduled 2017 SHINGLES VACCINES ([address] [facility] 00:00:00 2) [code = SHINGLES [facility] VACCINES (1 of 2)] Future Scheduled 2017 SHINGLES VACCINES ([address] [facility] 00:00:00 2) [code = SHINGLES [facility] VACCINES (1 of 2)] Future Scheduled 2017 SHINGLES VACCINES ([address] [facility] 00:00:00 2) [code = SHINGLES [facility] VACCINES (1 of 2)] Future Scheduled 2012 Lipid panel (procedure) [facility] 00:00:00 [code = 86252837] Medical Ce nter Future Scheduled 2012 Lipid panel (procedure) [facility] 00:00:00 [code = 09924609] Medical Ce nter Future Scheduled 2012 Lipid panel (procedure) [facility] 00:00:00 [code = 77250247] Medical Ce nter Future Scheduled 2012 Lipid panel (procedure) [facility] 00:00:00 [code = 85315467] Medical Ce nter Future Scheduled 1988 Screening for malignant [facility] 00:00:00 neoplasm of cervix Medical C enter (procedure) [code = 301004438] Future Scheduled 1988 Screening for malignant [facility] 00:00:00 neoplasm of cervix Medical C enter (procedure) [code = 246582105] Future Scheduled 1988 Screening for malignant [facility] 00:00:00 neoplasm of cervix Medical C enter (procedure) [code = 650475013] Future Scheduled 1988 Screening for malignant [facility] 00:00:00 neoplasm of cervix Medical C enter (procedure) [code = 535205778] Future Scheduled 1986 DTAP/TDAP/TD VACCINES ([address] [facility] 00:00:00 - Tdap) [code = Medical Cent er DTAP/TDAP/TD VACCINES (1 - Tdap)] Future Scheduled 1986 DTAP/TDAP/TD VACCINES ([address] [facility] 00:00:00 - Tdap) [code = Medical Cent er DTAP/TDAP/TD VACCINES (1 - Tdap)] Future Scheduled 1986 DTAP/TDAP/TD VACCINES ([address] [facility] 00:00:00 - Tdap) [code = Medical Cent er DTAP/TDAP/TD VACCINES (1 - Tdap)] Future Scheduled 1986 DTAP/TDAP/TD VACCINES ([address] [facility] 00:00:00 - Tdap) [code = Medical Cent er DTAP/TDAP/TD VACCINES (1 - Tdap)] Future Scheduled 1985 [facility]IT[facility] [code = HEPATITIS C Medical Center SCREENING] Future Scheduled 1985 [facility]ITIS [facility] [code = HEPATITIS C Medical Center SCREENING] Future Scheduled 1985 [facility]ITIS [facility] [code = HEPATITIS C Medical Center SCREENING] Future Scheduled 1985 [facility]ITIS [facility] [code = HEPATITIS C Medical Center SCREENING] Future Scheduled [address] Human immunodeficiency [facility] virus screening [facility] Cent [facility] (procedure) [code = 632631010] Future Scheduled [address] [facility] 00:[facility]:00 virus screening [facility] Cent [facility] (procedure) [code = 129906263] Future Scheduled 1967 COVID-19 VACCINE [facility] [code = COVID-19 VACCINE Med ical Center (#1)] Future Scheduled 1967 COVID-19 VACCINE [facility]:00:00 [code = COVID-19 VACCINE Med ical Center (#1)] Future Scheduled 1967 COVID-19 VACCINE [facility]:00:00 [code = COVID-19 VACCINE Med ical Center (#1)] Future Scheduled 1967 COVID-19 VACCINE [facility]:00:00 [code = COVID-19 VACCINE Med ical Center (#1)] Future Scheduled 1967 Screening for malignant [facility] 00:00:00 neoplasm of breast Medical C enter (procedure) [code = 747274202] Future Scheduled 1967 CT Colonography (combo) [facility] 00:00:00 [code = CT Colonography [facility] (combo)] Future Scheduled 1967 Screening for malignant [facility] 00:00:00 neoplasm of colon Medical Ce nter (procedure) [code = 932720728] Future Scheduled 1967 Screening for malignant [facility] 00:00:00 neoplasm of colon Medical Ce nter (procedure) [code = 958922927] Future Scheduled 1967 Screening for malignant [facility] 00:00:00 neoplasm of colon Medical Ce nter (procedure) [code = 754265825] Future Scheduled 1967 Screening for malignant [facility] 00:00:00 neoplasm of colon Medical Ce nter (procedure) [code = 653674550] Future Scheduled 1967 Sigmoidoscopy [code = [facility]] Medical Cente r Future Scheduled 1967 Screening for malignant [facility] 00:00:00 neoplasm of breast Medical C enter (procedure) [code = 180092223] Future Scheduled 1967 CT Colonography (combo) [facility] 00:00:00 [code = CT [facility] Future Scheduled 1967 Screening for malignant [facility] 00:00:00 neoplasm of colon Medical Ce nter (procedure) [code = 967888050] Future Scheduled 1967 Screening for malignant [facility] 00:00:00 neoplasm of colon Medical Ce nter (procedure) [code = 289511293] Future Scheduled 1967 Screening for malignant [facility] 00:00:00 neoplasm of colon Medical Ce nter (procedure) [code = 043140204] Future Scheduled 1967 Screening for malignant [facility] 00:00:00 neoplasm of colon Medical Ce nter (procedure) [code = 483677093] Future Scheduled 1967 Sigmoidoscopy [facility]code = [facility]oscopy] Medical Cente r Future Scheduled 1967 Screening for malignant [facility] 00:00:00 neoplasm of breast Medical C enter (procedure) [code = 887884269] Future Scheduled 1967 CT Colonography (combo) [facility] 00:00:00 [code = CT [facility]ography [facility] (combo)] Future Scheduled 1967 Screening for malignant [facility] 00:00:00 neoplasm of colon Medical Ce nter (procedure) [code = 883465417] Future Scheduled 1967 Screening for malignant [facility] 00:00:00 neoplasm of colon Medical Ce nter (procedure) [code = 397241295] Future Scheduled 1967 Screening for malignant [facility] 00:00:00 neoplasm of colon Medical Ce nter (procedure) [code = 288408930] Future Scheduled 1967 Screening for malignant [facility] 00:00:00 neoplasm of colon Medical Ce nter (procedure) [code = 807927992] Future Scheduled 1967 Sigmoidoscopy [code = [facility]] Medical Cente r Future Scheduled 1967 Screening for malignant [facility] 00:00:00 neoplasm of breast Medical C enter (procedure) [code = 675195162] Future Scheduled 1967 CT Colonography (combo) [facility] 00:00:00 [code = CT [facility]ography [facility] (combo)] Future Scheduled 1967 Screening for malignant [facility] 00:00:00 neoplasm of colon Medical Ce nter (procedure) [code = 186987927] Future Scheduled 1967 Screening for malignant [facility] 00:00:00 neoplasm of colon Medical Ce nter (procedure) [code = 719417550] Future Scheduled 1967 Screening for malignant [facility] 00:00:00 neoplasm of colon Medical Ce nter (procedure) [code = 887350241] Future Scheduled 1967 Screening for malignant [facility] 00:00:00 neoplasm of colon Medical Ce nter (procedure) [code = 992567995] Future Scheduled 1967 Sigmoidoscopy [facility]code = [facility] S[facility]oidoscopy] Medical [facility] Encounters Start End Encounter Admission Attending Care Care Encounter Source Date/Time Date/Time Type Type Clinicians Facility Department ID 2021-10-11 Outpatient [facility] [id number] Common 11:40:47 [id number] [facility] 2023-03-07 2023-03-07 Outpatient [facility] [id number] [facility] 10:14:00 18:10:00 2023-03-07 2023-03-07 [facility] Lina Light [facility] [id number] 10:14:00 18:10:00 Encounter [facility] 2023-03-07 2023-03-07 Anesthesia Rafael Alexander [facility] [id number] 14:13:00 16:12:00 Event Joaquim [facility] 2023-03-07 2023-03-07 Anesthesia Rafael Alexander [facility] [id number] 14:13:00 16:12:00 Event Joaquim [facility] 2023-03-07 2023-03-07 Surgery Lina Light [facility] [id number] 13:30:00 16:00:00 [facility] 2023-03-07 2023-03-07 Surgery Lina Light [facility] [id number] 13:30:00 16:00:00 [facility] 2023-03-07 2023-03-07 Travel [facility] [id number] [facility] 00:[facility]:00 [facility] 2023-03-07 2023-03-07 Travel [facility] [id number] [facility] 00:00:00 [facility] 2023-02-13 2023-02-13 Outpatient [facility] [id number] [facility] 00:00:00 00:00:00 2023-02-13 2023-02-13 Travel [facility] [id number] [facility] 00:[facility] 00:00:00 [facility] 2023-02-13 2023-02-13 Travel [facility] [id number] [facility] 00:[facility] 00:00:00 [facility] 2020-05-10 2020-05-10 [id number] Common 13:30:00 13:30:00 [facility] 2020-05-08 2020-05-08 Outpatient [facility] [id number] [facility] 13:00:00 13:00:00 [id number] [facility] 2019-10-21 2019-10-21 Outpatient Toney Cuevas [facility] [id number] [facility] 14:00:00 14:00:[address] [place] [address] Results Test Description Test Time Test Comments Results Result Comments Source Fungus culture + smear 2023-04-08 08:31:41 Test Item Value Reference Range Interpretation Comme nts Result (test code = 6463-4) No fungus isolated in 28 days Fungus Smear (test code = 1406) No [facility] elements [id number] 08:31:41 Test Item Value Reference Range Interpretation Comments CULTURE (BEAKER) (test No fungus isolated in code = 1095) 28 days FUNGUS SMEAR (BEAKER) No fungal elements seen (test code = 1406) Tissue [id number] 19:18:04 Test Item Value Reference Range Interpretation Comments Case Report (test code Surgical Pathology = 104) Report Case: [id number] Authorizing Provider: Lina Light MD Collected: 03/07/2023 02:57 PM Ordering Location: [facility] OT PERIOPERATIVE Received: 03/08/2023 08:36 AM SERVICES Pathologist: Eric Snyder MD Specimen: Sinus, BILATERAL SINUS CONTENTS PLEASE COMMENT IF GREATER THAN 10 EUSINOPHILS PER HIGH POWER FIELD DIAGNOSIS (test code = [id number] 3220) uZzEwMzNcZnRuYmpcdWMxIH tccnRmMVxlcGljMTAyMDdcY T2atNdvpHd8xUfoUCMespO7 tUBqUQymp6vbTCC2a9gxcco wICQgPBodJn1gkEVcdDatBp MiOTQaZLu1aE10FPKdlP1gg QOzFIj0UAKcoBIcpaRbEwTz WCRndDPjyFV4KTUiVT6tlkm fUSpnPDxjEWTdzgU7WYLeiH VqQ0ThHPDvII9qczxzYLE5P PduXPOiGMO7YlEdVQTnu7Ia ouv7XaFfbBMuJOurdBFduyy hkaAqZHITFdIVACZXC3ITGJ dhDrvBWYOqZSQKCN0LW47NU PFcX1kPFMBcS1OPV8OAGKQs dUWoSB2mRBGxJ0mCF92NEfJ VKV7UO3oEYQYiI2lRHKOLBh OXWLGBNHBzCD7KVS0HHDpGO AJvMECAVNDMT27TLC8VYTga EZZ9s9ulsCTmPLAbnLQoIGI wMFxhbnNpXGRlZmxhbmcxMD YwCMG4oaVrVZXcUHvaYQOdS SlaJk2cqGPutAzzAsDnPYOq c8bzgpTJpvmnpKy1s8mnWAC rUdP8eJQaVVhyR7vvhyWczU SwLSFoKCg7yT34WDDlpX5sy LDpSEmepqNrClY5YChmEIPx SjH6WUBxoBWpVNBiQ7caVHO pWIkhETPfCZkcpHXdEZI8nS axx7Q8vBKbgMAnlSlaZyQhN fDkMoSXp1KfYTc2kVepD6Gj EEJpDpD8lDDqRCXbKCceHZN dIIPljuH0bX37OGaagaS1xC Rbk0Abe73dt121aH0asMDxL ES0WMXnWQQygJBzIJDkWEW0 MDTvrUOlV7jbSALqMO3joqx jTFutMRenPQYfxYP7FWYwjJ SiB0LcOOTkKUxtTGDtxfv5U aFsDl2xyBHvoPavRKnjz8sq v0boyWHeYxi2TKJbOhVqRio lUReec7Mnj2tbSXAupb2hFF A8lVSxdQjjt8R7sZPiDEMsj ALiKFYaCJ0icMBnTNClpG1w cmxjXHBnYnJkcmhlYWRccGd cetDfJf8zgLzzJIN8NNulA7 mivG1cOhI7LUnqF0unzZ3gJ Qu6KGcuGIYiwVX5ycE9FWNd wPRgG5TrfH3cDSWvPO5zjdm 3f9kpHZD5ETruJWLjPkY4py X2RGIjePKlEFJknAlbEFbxr 760QXP5FbNeKDLop9KtW4Wu eOkcZ06goIpmM75bTBQtkQe ckX7ngGgnlU9sBaBsKpMqZR aqhBgxCW0aEYKxP9uhxNFpV VIlBKHiJ6wjOsVpyO0lhQik XLvtjlExWJVmYgy0ZJOjtMD pHZDiJiy5WGZnXXDhG46sjn ziTBA5nZ7vg6rrj3OwYAjnT AK0ZQTfm71iVOihkqF0OWfo Pq97NDjgSLL4FXnqXGR4fL= = COMMENT (test code = f9xojBOuDRSupWZhMABbI1e 9013) sngWqJNXrvEWbV0IxtdrtHL vzRX5kZH8goKbcgTZrtADrK ZFiPkFbr2lpx300yOPhc2kv HABHufddqQo5oBmtB02tw3G 2ZizhO17xzLPrQMQ0KANcIE SgnTCoEWZkFXR3YWAkxUHoM 9ayGQMmUO8selekZIxkHAsy WTLljCD4HFBueXSdY5LwEPQ cZAzmCDPbhbx8MpWuDe2kaJ VyeTcyMFxwYXJkXHBsYWluX QKrTzHuCN3cmkAwt3PzSSTc w7yxh5QedYawWEMsHARpFIW oLQN7kNO8qbXbPLKlDT0vqA 7jqZiztXYdhEZxJAejG5pcc Q24DEKvTsaowXBfsF5fu00d EOEoueWnzm3dyIVkrP== CPT Code(s) (test code i3jlpIOrBTJhsDYgAHAiY4l = 1974) afwIjBHLmwDLgH2GitvtrNX zxNB3oGU0vqGmseNPvdXZtP AIhRaHmw9htz637uCVvt3hw FCMNcrbwxMc4mItdI51vi6O 3HckoW94tpOQdHFX9WXAeVG ZasGWdBJDnQEY1VLLvsGZlI 8hqUFZtYY6nunplFColGRgy MZGbmTW4OABbfRBjW3LqBPS yFWdhDFUqpaq4IlOiAv0edM VyeTcyMFxwYXJkXHBsYWluX XEzAlIoINguLADqGWs2SwHo XHBhcn0= CLINICAL HISTORY (test w6zqdLLrGFRclMJgRIBpP8d code = 3356) ekqRcQTRfiCPqO5NiglleEY huTF1dJW3ugUavoKTqzIRjX UOoEwRwo2jwc723gORqk9pb AJUEEThiNXKPIUd6q0vfVLC MgbmnxUk7xCnbV07tl2R7Rz lsU71trXIhPSE8JPQkFMJqt UUpQHHdOIW1VJRgiOTcC9hf QNQhSK0zltdpQGwlJSypQYZ suTH8RUVwfNIbV2LzLQHdLD zoDNEyauf5SeRsJi6neIPxh TcyMFxwYXJkXHBsYWluXGYx HVBgJqZfZ4hcb49wWpJqXTo jrLqjqkiha4yjtIZoiGdbKN EsaGAxrgtaMXT4uD0lwGPkf 2ludXNpdGlzLCBjaHJvbmlj KZXsl896ALtwf1mrjXGszJe zXHBhcn0= SPECIMEN SOURCE (test y7hhdCRiMPTtpPIdWAXvB7a code = 3377) ybjArLMWcjOPdJ7YcedbhQC msCB4sHA8ypXenjUGdwXXjV CQyFdBfy3iwq887xODsy5zf KRYAfarlhCw3zDmcY08zs3L 1UvcfX79lvMIwOHE6MYYpZU TrsWEpFIEnURL2TDDeuDBwH 7vfFKDsNM3yxirdNGglMAjy JWRvwJT0TEGqhKVxL2NrVTS gTBupRHOzmhg5WzOhWe1zkS VyeTcyMFxwYXJkXHBsYWluX JYcGvRzT2vwlMTjS15ppORy gIXuwOMzQu3wbUPtZGYmtk8 = GROSS DESCRIPTION v7fjkFXqNKQznLDZAHAsBWW (test code = qGJ9toBwmbJp6xVmhHQSktc [id number]) K2vRKhKStrd2mtKOQ1n8nsh cZRXgdmBWTuBT5mUEufTYPf IA6sWgKeHVKtFpYsNFSxtSB gjuMkRwJnPHTkrGRhiVH0IZ McCG8zcwwmGKnpVYcqWDTqq yC8QEOtbKGyX6TcZQHkJS0g hsaaHGM2TBYYEhmpYu3jkEV ibHtcZjFcZmNoYXJzZXQwXG JwcUghUAZrUQm7iZ0MLluaF 95wq7Y6Nbm9INZfRZGbN9Ha TJ8fNXAmxLQbY30GPcwgCCB 7OSTLClrxTlchrGnom3EohW BcXHNnIFxcaWQgNTEwMDAgX FxkYiBPVlIgIiAxMTAwNjc5 YMEvJMz2FStxTbXQOJL8Cmh 9CFubNLa6KNxlSDkqaIGbQD TjGPNdRSNmYIwbpuG7b5tcI EZwiDYlGZX5WQbxi3ziYDcs IQH2TJUgRdVkIYQxBD7XOuS yVZYcILZ1Bfx0ZkS1IXq6AG EWLtIwApGbMqR1TCD2CELiE Rw7VCj7ADuUWlU4CRK9TqC9 VTSfPEM7AQYkXAp3HQNeAYk jgrBuYTlhKtogHUtmX54lvW FyZCANClxwbGFpblxmczIyI EEuIFNpbnVzXHBhciANClxw LWKnGK8YNPLbJUdpTQMlQnB vqZVlE5pxRFUkG98xo7NZb6 JvWV9MRLy7kwNtiwkvnO5cW BBkisPgEFkyH4RsMTEaFoVk WmYzDNx5CHLdTfZzk4ibeHW uDQkqYSX7fKCyAUHkZRKsYY SjPP01BPiQHDYvbcVeNYygm WVkaWNhbCByZWNvcmQgbnVt ThLhPTJdZYSdb4jovNDnAYK glNM6RTWueDWcoP46owUuq4 28KF45vhYfcBCdj4JsV73mf WVudCBpZiBncmVhdGVyIHRo QB7jEOYhPB4wcC6qhJuzyLI wuQFdMJixH2fvtF90VNMtYp dxrQZzIlQhokTmASNxITU6M IXxIBY4AAOzZSIqfRYqL4rj COrifRLze0RzoXVtdJgigPK rfIxvtb8iTOZmNwhtgc4yYQ S1mOtaS8saf8DaVSTnv5N2B MZkawYqeHUjqSXqRH92aGFi bMkib1ZjwJl4kQKbKUycUWF eZHTrh8ecn9ohkduaLEOsQV oldOLgQ6A4oV8bKctvUUToY RxnsETzWH2XWaBdILRTIZKb biwgTUhTXHBhciANClxzYTM yJNEmqVQMz3UyRSZNNktfMt BcZnMyMiANClxlcGljTmVzd KHqOlN4QFCnqNUpNFB4BR5s gOmkQJRnH2UaB2TwkhL9DED aepJBHzohCGZxSU6EhL== SPECIAL STUDIES (test j7qvfYRhPVWvi0jqSLAeeQD code = 3376) uZzEwMzNcZnRuYmpcdWMxIH vtmsCkOOrkn9SlC5ZjIkOgH FxhbnNpXGRlZmxhbmcxMDMz UGZ7byFsRCMgIKqbAOGqGSi lSi0kaOZzxHpmIdCmVFWuj2 dbocJJtvpyxFn4o1gfICCwD uF1mSGeFDogB7ltxwEsbZRs N7AadGZaaFo7z6jkFzTgAdR 3iYExAGqaN6brvpXobYRtFL ZqIAp8aG25BGQqlF7bgFHgD VnikjQsJuU6NSjwIOBuGwK0 DDRidFKfNHIhC6edOGHdUMr sFMEsOGknuDRxOJS6uQjlk5 A6hICheOJkzLgoUiNlMjZlF xVOq5GpQPg3cOjtS7SiSJYq KbA0qPZhUXFvNLmkZKDwMKI vgwD3jEdxruYzi72ikWWzQZ YwXGZzMjBcbGkwXHJpMCBDb 3BtqRewTCL0wUo6qDlbBpjw DFI8Loj6XA2ywt33rxe2xKc dNOGobchjUdB1JAjqIWRcvy hzNSz6JGtlSOMgvMU6EEVhz PQrV6UwSHZvRB1tslk3VME1 QEnaZYQfIkR5UKCoaFSuVMM slKvcCSlzp241IIG2QyOaMN 0uR9Vje9K5vI0ubSNeLPMgz PJuSoEoLAMnux5oiZOdKNfq w2BhODS1duO7jYRwlYLiDEL cDN69Qamfj5BdOydtb6EwT3 7rqIQ5UFsje1mfEZ1rMjV7l aCeENkmx8mwtL8zKxX8SFfg PI3mBZ5aBGNiiK7aevwnJWC nYnJkcmhlYWRccGdicmRyZm 6ziSkuBST8MXesN3ntaS4fA fZ0BBliN4adrK3pNUe1FRrb tTD2UZBzdE1wTX0wfqcxo3c lNRswOVinPCOxrxS9rjS8BK EipDZhR8WrfW1aDOVmAM5ig ssoe0amSPW1EEdmDJDrPQP2 DzFlOFAtz9Vofcm2IbBeu2R urASnBLdlN57qu287QBMcvu EnV9dvzPUdcjanzPSaceogR BqycsV6KOUcTNCcJPgdBFOd XGZzMjJcbGFuZzEwMzNcaGl jaFxmMVxkYmNoXGYxXGxvY2 mhOvPzE5IlTSJiWpApFOhsH SbqxEVpqGCjxRC0iA1oOP9r VPJroQNkC5GlWMLnpoMkuGO pFKW0zFQpaMKdRJ2yAFsgzI Dia7qtj8RyP2botQxvnZQ5H G9cAFDiOBLuMWkfk8YjxD2b LlxwbGFpblxmMVxmczIyXGx bzbclGORvLJruU5caUwCqKH JhuQrhVUieo7WcTJJoGSXmY cvsonQaDLg5omTzGSTgirry CHPgbCrsrM6vQjPhEuLnSrn xOF6jWPAkU6qfoAMmHACeDT UdD8edVwIhiG9vlEbuFHxsD aSvNkLbHiKGy143md4mORXg bIVdrmLHeVZdpW1dMDakLHf gLHddjFReLUmpc9gqKMYhq8 k7wTAlAMNkvfTmb5obTTvcb lCnOBLtkMLufXUlGSKln98y DLjqiUjtgKkrGDUfo8BniGl tx5BaPgFtGFoci8UcP93pmG JvbCBzbGlkZXMgcnVuIGFsb 76oe9qsOJZaWoK2hAJtkMI5 dAFygWUcn5DemFtaYXYzj7q xGRKzeb8ffzcbsRGef9HnpJ 5pbmcuIEludGVybmFsIHBvc 5j8dCKlOGAqAKRlZQfzkVx8 NVHri669zm4fqsS1jTWnMPW 2YWlsYWJsZSBhcmUgZXZhbH VhdGVkXHBsYWluXGYxXGZzM jJcbGFuZzEwMzNcaGljaFxm EHghNzNoQGEkFHxgY3ogUkI hT0AzADMnCcIbiYJgY3wkaT FyXHBsYWluXGYxXGZzMjJcb GFuZzEwMzNcaGljaFxmMVxk KbFmHZWmFBkmJ5ctVmJbX0J yXGZzMjIgIFxwbGFpblxmMV xmczIyXGxhbmcxMDMzXGhpY 1zfMcOmEBQkxXhuYZjyd5Hl CSPkRXRgDhuyztNxGWr5ydH oXHBhclxwbGFpblxmMVxmcz PgTOjjhwyaPSUaYVrpX0byC fRmWMAekGrsVHfyu8RoPCKu KWTbRjsiulMqVVhfoUUww6l iu4JtR4pllWewrSL2OFCiC1 dmeFMvsNV7VHQ9hU0aJFkpx fYuOZHpc6PiBQJuAWMqOyI7 mW4tUNW1UoWXySztEYMiMBk uXGYxXGZzMjJcbGFuZzEwMz NcaGljaFxmMVxkYmNoXGYxX GeiY9quNtZcQ6MbKYWvQmOq uJypXMqvPXg3PycpnGJruuy mMVxmczIyXGxhbmcxMDMzXG brS6lnGmWgLVVwmJspBYtqf 2NoXGYxXGNmMlxmczIyIHMg EARzkVTrbRUXMW05ZOInYCT zmBaynJ2dvQEMLHMqazB3p8 A2KImbMXEvQWz2ZOmwikZwL GLijH9mUDRgQC5eYAb3crBe XADyc3TyVD3lEFShnNIsFOU 4KTKfk3NnK2Vur7WpJMSrJX Himv4vxyUqGuSYhDIjYTGmd d09IGNeEN8qI5ykAZPoESUi ezSdoUDaw9XhFSPibZU5nKI bEP8ULvEPn67nRWRkERMVas DtMGUhyJsqnSU3zcU3eG2oF iBUaGUgRkRBIGhhcyBkZXRl tx6qkyLtWAGjPSDtj0RbtFU zsQWztsBiM8Nso0AlRKAoqo 57WIidyMHxbn37SE8cM9Btf 1KaaR5zWQaxVAHqf8LkhZLk zJApVVWhl6WmW5bapxkdPJz ejHVboQ4hLETpOUh7VBDta8 IaEULdd8EgWpFjtoKeUUFhF OLyBBJcuD80SKZ2gAjgxWlf vwBeKD7jTLVsrlAxNDHaVZJ faU4iYBhbghDrETQknkE8m0 O8DIclPMBjjhImNtrxKWU6n eJeikG4aPOkN2pndetpQPhu LEHat1LcnF1xzVWQcFIvj8V xiPTcsVBLlMAvIV5kvfXlIT 0oCPZ5JExdEXQFQOHlWSsqD NCyFGX5NVotKkgiIFR9hgEl UDRvm5QxHLlpS2jvE63leNw gsBc2hYSdgCeeyCTiyHXbZI RujcA2w0O6MPTpd2SzwvinY HBsYWluXGYyXGZzMjJcbGFu ZzEwMzNcaGljaFxmMlxkYmN bOPGfWTkjW6toAuGrHyQwMf ouHNK1cI== Gross assessment was [facility] performed at ([facility], code = 2777) Department of Pathology, [address] [place] [id number], Technical component [facility] was performed at ([facility], code = 2778) Department of Pathology, [address] [place] [id number], Professional component [facility] was performed at ([facility], code = 2779) Department of Pathology, [address] [place] [address], [place] [address], [facility] [id number] 19:18:04 Test Item Value Reference Range Interpretation Comments Case Report (test code Surgical Pathology = 104) Report Case: [id number] Authorizing Provider: Lina Light MD Collected: 03/07/2023 02:57 PM Ordering Location: [facility] OT PERIOPERATIVE Received: 03/08/2023 08:36 AM SERVICES Pathologist: Eric Snyder MD Specimen: Sinus, BILATERAL SINUS CONTENTS PLEASE COMMENT IF GREATER THAN 10 EUSINOPHILS PER HIGH POWER FIELD DIAGNOSIS (test code = [id number] 3220) uZzEwMzNcZnRuYmpcdWMxIH tccnRmMVxlcGljMTAyMDdcY V4hbAdppXk6qKwcIKAtkpX0 xITzJJcoq8hfHUB4f6ankfe pPMWbTXosDb7nuQPkjTrjCs KcCJGnAZv3mI19VQMzgB5cj DGgMPz8KSGanQLbsnGaTnNt ZJAinHMxpKW9NDDkOM4unwm rIYxuLBrjLTEsmwX6PRWmpZ UjD6CwTAInMH1fsrphLGB4A IhdAZXzCNH9KuXdFXYxd3Cb khv6WzFnuRNmMAkqeZKiuvu nyyOdGRMGOqBLSHCYX9TKPJ ljZqaCNMKpXOGRWA2OL37OB LXrH7tABSEzJ9SAP1AKOOEa dDJaJX6dXJGkU5vOA63ZEdJ ZXJ7JG9kIVTGuZ2oWZOVNFg PDLQTMMZZpWX4GNM8EVMxHY FPjHSPVQMTDQ10GLK7NMZjg KZD4o8zjgYYmMVZwrPCqGRW wMFxhbnNpXGRlZmxhbmcxMD ZcLQL5dmQbWHIdTIgkNROqW EmsUc8ggEXuhDbgJhKpYLMo s2yiomIFamstdMw2r1jnTJF rPtC7gNReTCerO4dahdWibU HsHRTqMAs3fQ27NXWvkN2td LArKNjfubLeFlF3TLysOXAv NlA1VWShbGZwVXEyI8xpRTN aYAnwETSnCDpzbQEdQCB4cI mkg9D0xTWdaRLzwGvsKyOcT qKcNeCOx8TbHAb2jWfeA1Vw YHNnSyQ6eZAxLGWuRFliPHP rGSErjfJ6dE98SLzhzaM5iK Ssa7Brp21zz583pC2zxZYvC CY7WBHsWNVmoBFkGHYrWLQ8 JVIzhBYsI8kwARPuPH0fydg iXZxpOZcaBPKjzAM1LJEmdA LyR6OzOZDfOMbtOORvalt8N eEaIy5irZLptKwsEQxyb2lt w0qhcVJcBxp5FJEhLpHzVyf kNAqby5Zev3gmXYIcut7nFK Y6eEPomIbzf7C7fYZgVADpv ZXbIRUbCP3fkLLsPIEwtG9d cmxjXHBnYnJkcmhlYWRccGd yruGbFf8vkPliFMN7RBpuN1 eatW9nZeX5LFddM0pyvZ0uP Rc3NLicXLEmoMC0vqL8GRLd nMHfW8DxzW2jCCPaBQ3kinq 8w8jvSLE1OAemOTVhQqM6fh G2ZHBjyASaYSQtoThwBUsse 619YGE9WoTjFFCki9WxI4Xj mHkxV64igJliO89yDRCozFw nfK3dxTbmeL5iLrMdNfWoMR ohjTiiMB0dKAVaB2ecdLVpH HZqNIVsA6uuIxInfZ4djQos ECnafhWuRQMkVby6CSZubME qLGShDai3HQLmURVkE56yhn ybRJL5hS8rd5ryd4EgWIdrI LX5JVNiz21hALtvniM7VOet Lo36ERydYYW9SDpnVYG2dT= = COMMENT (test code = j7hjnTSsTRYgzUTzDSEdO1b 3357) vwkVgYLOovQNoH3YoicnrJC pyHZ3yRJ3iqDjusKZcjFUnO FCqLnWrf7auv528uSXtx2ko YGJAnlurnKx7jZcdM08nm3K 6IkkuX05iuSAqWZB3XHAkVT RrxDXoBRYgKLF9UCDmyXGdY 7eeOQVrRT8udzxrHJnfUSmb UYIjtYG8QGMbyPVzB2YmZJG tERekPZEurbj7VtBlGz9waY VyeTcyMFxwYXJkXHBsYWluX MErSfApFI1ubhLvg0ErBVMx b3wfi5NzgWubNXOvINXgCWG jBVO6hEX1xkCsMOTrYM7pfN 6iwJgalSJzuAZvGIpzP8dey N99ZAGjIysszCTddH8ax99e HOAkzxPcis0iuEPzuI== CPT Code(s) (test code m1nlwHUsELYptHSwFPOfP0k = 335) rnlDxDTFioZXrF9MoazzdZV haBN9uYN5vrDpvbYYkrLApW YTqMaZnn4zbi732bQPxi3gn KGYIhdrucVt2oUvnH25yy6T 5XrtvR21lqWAzHCE0UNTwFE ZlqOIkDIGeXVI8NDIqbMOpZ 7ncJKTwSO8nnnpeXVauTImz HFWuaML6IUZfmWPvK4WkFBQ kYRwsBQTpeqe1ZoFlDf7kbF VyeTcyMFxwYXJkXHBsYWluX TAwEdQjJOqaCHGdURp3MdVv XHBhcn0= CLINICAL HISTORY (test i9wfyEJaTDAlwDUtYZCkU5k code = 3356) pzkKqQFHwlAYfN0OjnkuoLM gzPW1dIJ9koXwplGYrmGXpA PBuKoCmo1exm073gTElp7or BNXWXDovWONAVYr2j5udOKT PtzofxWu8eAizE22hj2Z4Xv ucM44lgQBdBIO6JBTtCRXlp CXrOILzXPY9CGScxUXhH8rt RMSjJM3lurneQMedVQhxTAA pwND5HCHsnQIfD9UxOCCyKO urDILjpww2AuSfJa8ylZRhp TcyMFxwYXJkXHBsYWluXGYx JFXoOdGzB8fel14aDaIlTZp yzUiivslhu7wsfFJroDvlDB RojLHupuyzCBX5yI9xnANfq 2ludXNpdGlzLCBjaHJvbmlj PWRgv328JRqto6xbtXRpoGi zXHBhcn0= SPECIMEN SOURCE (test y6xxcQFlQJYzeSXnYFWjG1u code = 3172) jklFrNLExaMWiZ4OinhlcZR hlXK6xIQ8ltEwwgOQxlKBeU INbNkKlp8qff181jAPfe6ik AJCXdzljcSh5hIrpB55xs3P 9HudnK99gjPLbSWK9FLTmNJ UjxCMyGBUqWJE8GUFmbWBfW 2jrJGWjSD7odtetJKpxQXai TRKdnVO1TDFylEFbC8PrPNU pWZpaELXhgkt0AtPhFl9zjK VyeTcyMFxwYXJkXHBsYWluX DJoPjOrB5ndaOFqG98tfTVo tAOltMInUs7uiATuAYNdgj0 = GROSS DESCRIPTION d0pcuBCsDSDzfAVJTQIiKTA (test code = tAX7ysAahpQe3fPglODMmco [id number]) B3vRIsXQssi8wrKVT6e6nkr eCEEbnvFPEiVK8dJTikNRFg XQ3hUkApCOXmJzCvVQNahDI xagEaXcPeZAQlzIHqmJZ3IY RlKX3agwrxZRijYJhgPKJut sB9UDZlzLKtZ0PeFZLqNW3p sdlxZJB6UOWNHeefYp6dlQD ibHtcZjFcZmNoYXJzZXQwXG KjxRhhVRKrZYq5xM1ISgfeG 40sy9Y1Egt5ZOKkULUtR7Af RA3hTVGgkGKnO07CCcauIQE 1OOXLCsigQjgclCagg8PcvI BcXHNnIFxcaWQgNTEwMDAgX FxkYiBPVlIgIiAxMTAwNjc5 FNGlERc4ZEekItDQYZB1Ews 6OCziEBu3GHcmQNbudBHxFP JrPEFyGHZfDJoesdI1e0vrN HVtqHUwUQJ9RLtqd1cfNUeq DZK5KVVcGxJfMZAvBG7RRcU jZLKqQTY4Rxe4KuO7VZi2JJ FRMwHpNgBiQeP3LQE8KDKjR Lf9EVt0YGbBCdB0WZU2TqT9 FCCoLWL5EMWlGDn2MBMaONy hjgRpZBcxEwrlVTsnE65fsQ FyZCANClxwbGFpblxmczIyI EEuIFNpbnVzXHBhciANClxw VLMdZZ3GJDEdPSqaBBBmByU obISkF2kdZTQgK92rn8RLj3 EkQX0ZCEs3yyZzskrilV0iH BDmktWcOGcjT1DoKTDrIwGz SkEvKGk3SJNvFrYty1yyhTF eRYrnCEC0dEAwROLtXNJsIT XwTL35AXoOLBPwgfZhGCkim WVkaWNhbCByZWNvcmQgbnVt GiHqKROqZIOrt7fcxQXgLKT ebGL0QPIltMGtqW09lrJip1 00QF68hrJnsRNfv0TiG29te WVudCBpZiBncmVhdGVyIHRo HF3uKHIlBL4orS0nwGtqmOT tzZXjNUrgZ7jrqP19ZWRaNy croCZcAdPorqQtQAKtNFP1L EPrNCZ4JYLcJDCpiKGzY5ld FMxpaQWmv6TmsNQoaNeztHI ceMeipz0lMQNxIvmfwf3oEW E3pQydQ7wdm4AjRCXyg1C9C ECqxjJhfEBmrMGsJC87dWOq yEovv3OfpCr0sEGzXOoqPAN mXVBop5xqg0avywnrLXRoYA nvlQHlT5T9dZ7qKgthHMSiJ PpyjGZcFU1OGlRlDVIYJTNs biwgTUhTXHBhciANClxzYTM aYGFjzBYBk5KqBNWYByzgAr BcZnMyMiANClxlcGljTmVzd CMtQwO3LSQohXOhVGK5KO8w lVvaMBKhB9PbD5BkbqU3CGN ktwPOVlwhZFDaGU8UyJ== SPECIAL STUDIES (test y3lovCBoBBRzz2cfRIPpqKK code = 3376) uZzEwMzNcZnRuYmpcdWMxIH swdrBkWYftp1XfD9OgPpCdO FxhbnNpXGRlZmxhbmcxMDMz QEE3toZnNOIaEChtVOOfEIm lAq8ouJQupFqaWqXdKFEes1 dgyaUHhfnccNs9u0fyENAnP wQ7aGWkSXxvY5dxfbLntYKr C3LebBGrnWl1x8gaFfSaPlI 7uTVuBFobC4gfzeVgvCTaNH XoJJe3nS27JTUgrM8ylZEnY OerkwEvZfB9BHznLKXrFlR8 GUHkeOBiVCYpS4aePEDzNLu mLFFnOVusjCBuNOA7eYxtp0 V0zAUpqRWifMurFaMfKxLrI aYOl5QvLCq7aXpyB7TeFQJr DbG3nMWzFFLwBMyaWNOyOWS mqpJ1iKklkfMfl20xcILoKA YwXGZzMjBcbGkwXHJpMCBDb 6UouTmaYIT2yIj6vOisGiiz TWU7Xnb6KD8kas48taa7vAk nKLWdazrdZnD7HUlaZJXohx chIKi3XDosAVQsaUV5GFYeh AIqR9VlLIDkVS5twnm7YRC9 GIskTGMsIsU0LSWyqPEsLKZ sfUctVAoxo881NDZ8AwIjCK 9sQ9Fre6R8vE0otGSwLKDdd ADpSpKxPLMvfd9gdWPwHByz y5GaTAJ0srF0cDCqoGMgFCA jXO96Ylhky4OxMovjh6TlS4 4nkVH9DUxlv4igIE3nYqO0a aUqGAlaw6rylU8lWjP2OUsq PO8vOA0iNYYyuW0dcvioKGL nYnJkcmhlYWRccGdicmRyZm 0txPviVEL4NUrsT3kjqK0pB kR9SJhnV0bvlM4gFUs4LJxa kQL8ZDKaaG3qTC7dvranv4n qZSxuERiuBCVhfrE6vbN2FQ TneEKuY8RjaX7tZRPuIE3zd fccp3noVHS9SBsgSSIlZBN0 FpDrHDUjz7Qcorc7IwSuo9C phZSoQUopT24ra515RPSaik QgM9spwEWnzykokFRlvxxfW VjcqxK6YVTpQWKuRZgbAKOe XGZzMjJcbGFuZzEwMzNcaGl jaFxmMVxkYmNoXGYxXGxvY2 qqObVaK4AbQDFsKzNhDRqsR DigfTSzqVFqwWC0mT1wHL9u UZFlaMVoR9LaNKRuhrMcjZI nLCL8cPGvdIYqTT1oVOymrA Abp6lak0AiK0txoHfihTQ0F I5sGNJsVZSfEQtpb2UduZ4g LlxwbGFpblxmMVxmczIyXGx odqinWANbXBxlP7ffMxSmOB JkqBbaYKkee9IgFJZvCRRfN mvvqvDfNKz8qpBgMNUvzlgc XSVyoHscaQ2eOdCtCpKuXit eEY4zPCVbX2deiEZhDUMjVR MwC6rcXlCwnX1jhBqxCAsaG iFfVrYvZdIAf000zo0xCKAw lIHfvdFCoWCykF4bBYthKZg fEUayaWCbXNxug6xkQBDat4 r2gTMzTQGdluWxv6bdVZstg wHpXFObiDYqmGGkKIKev63c HCyzgAyzyKdzBRDsl7EpqIj ax5GkMmAiNTbgi1DuW84nrD JvbCBzbGlkZXMgcnVuIGFsb 28do9xjNDUwBuE2mPVlnRR5 vWZilUIlz1LtmLvpRIOru3w xRIAbcj1hgokqyRFqz3DbfN 5pbmcuIEludGVybmFsIHBvc 4p1oKUuGCExOBQdSKshpXe2 JEMmq948ry1savV5rVUvJEB 2YWlsYWJsZSBhcmUgZXZhbH VhdGVkXHBsYWluXGYxXGZzM jJcbGFuZzEwMzNcaGljaFxm JVopCeIlYGLsIBmrS5etCtR sW8GzVYBuQwBcrIJjA4vlrR FyXHBsYWluXGYxXGZzMjJcb GFuZzEwMzNcaGljaFxmMVxk DiKnRQMrLSatA7amZuNfI0E yXGZzMjIgIFxwbGFpblxmMV xmczIyXGxhbmcxMDMzXGhpY 0llGaDvZFCykXosGCkfk6Xl DTEtTFJnRzrnflMfOEs0ctH oXHBhclxwbGFpblxmMVxmcz EhDKvctpreYECrBXjqQ5ipM zSyFCCfgSskKSdoo6WrKMKg QLQeAlqtnrUyCJblyODmn8l aa5EoQ6eltHxjtNL9QCGhR2 bhpZYmwNX3JFB5fZ2zFGwjv wMsZHFhr0NkRIQlVLPrTtL2 zP5tLTO6KxJPaGwyYSYgPIw uXGYxXGZzMjJcbGFuZzEwMz NcaGljaFxmMVxkYmNoXGYxX RxyV1baFwVmZ1JyZMXnUbHv eSxzRNqeVMw8LppkgWFerwm mMVxmczIyXGxhbmcxMDMzXG sbV8ciElMxPGCocDwxHFsmr 2NoXGYxXGNmMlxmczIyIHMg LDQtjFDobZKYLV35IYOdCRO mrGfrkI0brPIVDPFygaC5v4 V2ARsnJKMlWZu2IAvcipDxX KUlnK1sFEXfTJ3jUNe9zeAw MJTil0BpYR9tNMEzhOLzIMC 5UGNtk2MvH8Jzz2NqYRQmFT Fjlh0fmdZhGcPOxSVlBQSos j81WTRjIM2cN2ftFONmZJGz rsKvnWPkf3SkVKZxkWZ2eHV rNL3RHfUWu76wCTJmXHBUim MtZCGasMlpvJV0grI9sX4sO iBUaGUgRkRBIGhhcyBkZXRl oj6lzlHrLGWeFOXsk1WxoCK diHWsnpPvO1Njn7TdRADipt 55OIrswLQrnc78HY9cJ3Uap 4AtyM4fOIuzLURpb9UdxXHa lFZpCIEve8StN8pikakcEWn ezVQpkK7dTVMzCEn1HQRma2 QjEMDcm5AeJjOtyxJrFJMyD QEzPDJrdW40AFH2dKwocDvv nlBuVQ0lCNJhlhFuSQByTFY iuJ2wBSnhgkSnYHOenzR4c2 L6PIsbRIKbfsLxJaxiZPL8j iQljjW3qCGqN3mowcvrBKol YBOfc8OupI9pdKRKoFRqw1K cdPFdfGOXpTOrPH1yarWuBE 5jTSV6XPilEBNHWMQmUCyhO LTqDVE9LFatAxmbBVI0yjXs ISZyo8FdMYaxE5euN43ljBq wcVl6cHXiqWjzhXWspBHkTU XgnsG5r8V3SSUyt0RfajjaZ HBsYWluXGYyXGZzMjJcbGFu ZzEwMzNcaGljaFxmMlxkYmN bLSVbKKccO0elEdAuDwLbDa bnWID4eZ== Gross assessment was [facility] performed at ([facility], code = 2777) Department of Pathology, [address] [place] [address], [place] [address], Technical component [facility] was performed at ([facility], code = 2778) Department of Pathology, [address] [place] [id number], Professional component [facility] was performed at ([facility], code = 2779) Department of Pathology, [address] [place] [address], [id number] 19:18:04 Test Item Value Reference Range Interpretation Comments Case Report (test code Surgical Pathology = 104) Report Case: [id number] Authorizing Provider: Lina Light MD Collected: 03/07/2023 02:57 PM Ordering Location: [facility] OT PERIOPERATIVE Received: 03/08/2023 08:36 AM SERVICES Pathologist: Eric Snyder MD Specimen: Sinus, BILATERAL SINUS CONTENTS PLEASE COMMENT IF GREATER THAN 10 EUSINOPHILS PER HIGH POWER FIELD DIAGNOSIS (test code = [id number] 3220) uZzEwMzNcZnRuYmpcdWMxIH tccnRmMVxlcGljMTAyMDdcY S9umLjflOl5qLclHMRkxlF3 wXZeAGlfm0wcGLH0r1vmeyq cOVVuNBhzEr5siWLufSruMd IfMYMfKHj0pA77DKWigB9sz NFdJTw8HSAleEKcoiMfZqYv QVPebELpzYQ1PIShZA6zscn jQGizHVmiRKKzyzO3NHHsfT WzI9LqEALrMZ5tteloJEY5K OwwPAPoOSZ1LiAgYPYtb9Do gjp1TnCkwPBfFGwebHZkwvx whyLvRLPHIzOKQQWES7CUFI lrXntAUGWaURRDTS5JI55VY BClU7dXFBXoL1PEA5NVAPWs iTInOM9dRQSlE8wAC96EGuK REU2JY5pJRZShX7fSIDZXKa HHKCVJLVPbWW1QGE9GRSeGS WIxBCGDJFFYJ19ODF1JSIre WAB8j2ktgCXfFGSfgLChAOH wMFxhbnNpXGRlZmxhbmcxMD MuZRF5eiKyDPEeNQgmLLIpK TgqSj0ryBUrvLutZhQdDHJw e4xiwnAEyxwohOr2d5dxNSK dEiL3gECyJMclH3zlwwUflY SnYJCtBTq2vZ27UFDvsW6he CPpOByheaLkAsZ7BIaeKHPn VpX7AFVmtVVrFHJiF2dpDVS lQAxxVIXqMKkdaVWpLDC2mA ljk8M8iMFghWXryUtqEkUdD uMlDeIFs5DmIKr3xMxcH7Kp UWArZyG2xJSlJJLbOJlgDGO cOZEumwD2xX21QAjkrwK4rQ Cme5Hne00tv019kZ4aiXDdK ZN3UYEpTLAliWIxAPIoLSB6 CTCccKApV0kcHCAtNT2fdzn iIKzcONvvFJMytFK3RMGyeV ThW1EaPRZwAQaaEXTnkil4D cSlFw9ybJMtxJpdQKzgl7sh a4hfcTTnEto1NKVxEjYyRhi xFZkpq9Blh2cnGSIjgh0tIP K7mRIfrAgqs7U7dNIsMTRgq IYzQPAsDU1atWMdAECfrY3q cmxjXHBnYnJkcmhlYWRccGd mfkOjJy6mwHvuJOL9DCotP8 vkkQ7vOzM5FBfxM7jujT2uU Yu9LXvtQGSfuVS8boN1HJVi pPWfL9NcrE9pTQSdIK9ggky 9u7ueUZG3SXvjUARmVdN3hm V6ITDnkEMpSDOnpPttNItbl 279OGF2OtXjJRKlo3YcJ8Bi yOapT78brPigD75nZZXinVz exS5epJkeaB3tPtNzUbZnVC zfmKaoGX9fZVTuE7ezhICqK HVbFYRlZ8qbVxBefZ3doMpr RCsdzxRbDUTsKeb5LCKddHA zHVYnBgo1IUWnQBQgU50pco ylTJZ4yH5uh7qqg8EyAGcbL HD1LWPuf79yQVxjrpG2MHnl Cb10GHrlHWK1EAfxAFA4cC= = COMMENT (test code = y0qgqIHrKYBgmGDwVFHsT4a 3353) onpXnUMAnsVJbD5KvgevmUA qaZN5xBE4ppTcobFFmiGRqV QAnAbHgp8ldm075bHRuu9to WAMJkjywtPy2gOshH07je9B 0WzwnX87geZRaYDR2IQLcZG CfmTJyHPNmQNL8XFMwkYPhF 8csAZEvJA1hjyrgRXuzPDrc TYBizSU5YPHjqJAoV9DxNLY pQWpsTBDducf9RoSfKx9ufN VyeTcyMFxwYXJkXHBsYWluX KJbHoTbTN0gczVhp1RhEBJj v7pcn4FfiMrnITWnRRWlOQY yFVT9fVG5oiDpUNCaDV0dlB 0ljAeemSBuiLSjWDcqQ3kth A42AIZvPsdrkIKhuT8hm42r XMJhwbCoii6foSMjzH== CPT Code(s) (test code m3ihcSTbUEMfwKNzGVCsV3i = 3359) ymbFyBWSuvQJcT1KsplwlWB ouLM8oWU8vxCtjdSQssGTxU YIgSmKyx5cke184fDUle6ps DRXNsuhovMf2nDrgB98jg6O 1IogdJ69leYYpUSF4MMBsJL XfcRLtFQNcMQC3KLLsfTQaV 3knFSLoKV7ngimgUGvwGDct SJHisJV7RUQxwDGiU3ZxUML jFFkcNNLtwkt2CgYuOw7fbX VyeTcyMFxwYXJkXHBsYWluX WHyLlCtUTybXKMdQRw4YqZu XHBhcn0= CLINICAL HISTORY (test e4fwsRUxYTJksEXpKQIoY9w code = 3356) uatLpAXNwoAAeE4YcnavlEX brCE1qMW0ogMlcmEGhsAUsX NXjVuJej7rqv020aINoh9sz JLGQMVilZDNMPNa7p2izVEN LcxnfnOs3pBtlQ98xn0H4Xn kaJ13skKWnXTZ0GUFtJNRbd UUfIBHfWLO6VWDfhVVmE1sa SRDcDO3crkhaFUenUKkaNMQ tmGV8JTLgzEMlT8NqLTKiSS aiLAPrmao4DgFiRw7mfRIjh TcyMFxwYXJkXHBsYWluXGYx EEAhYpFyJ7boc35tZpFzCLl zgQrpjwsuv7judDErpSiuEF FfaRHlwbmfZKW5eM1klKZrc 2ludXNpdGlzLCBjaHJvbmlj TDUkl952GGuxn1yahEAelNf zXHBhcn0= SPECIMEN SOURCE (test l7swqTXqQEUecWTxQXWeQ5w code = 3377) vgcWjTLAsyZVgW4DdgltxXP vxQI9sZB5rlJkbhTIbiSRsR LJmYgDoe2wez675qXJsu2wr TGPTsiidzPe9nOnfA42zy8G 8IaejN39haUTqNCQ2ZPRqOE OrnJWsHFUqWON2QQNjsSHxM 0khGVMkBH1fedssNJcbGLis SKLmuAC7RCBobYBrC5QlADK mFTehLETxmum6OuYsAv0qxV VyeTcyMFxwYXJkXHBsYWluX RGpNcZmT4bmyLNjF75moGMw yENslRBpOl6smXArRGSrgk3 = GROSS DESCRIPTION j9ffuGTyVRPrkHVEIQQgQPT (test code = wSK9oiXrnkUr6jEmhRBYgdp [id number]) M7qUGoBGegw1paRZK6c7aps oMBFwamACMtXI0oEXxxZUDc WC5iFwXoDRXdIfWfIVUwkUD kofNuXiEmLXCsvIMchVB7IT XbHS8dwyzwAXabWLutOXSai zH8GBRyfSDbB4UoEALhSL7h idhtXPE0HACNMssvLx8xpKV ibHtcZjFcZmNoYXJzZXQwXG CmwEkfCWWsTVn2zY9URdmoS 95cg8F4Bwb8ZEYqZOUuQ0Xw BY3rHFCddQRjH75PNhccCUY 7DBBFJgajUffzfElwq4RmxA BcXHNnIFxcaWQgNTEwMDAgX FxkYiBPVlIgIiAxMTAwNjc5 CHVbYDn0FEnnXvWXREK8Oip 8RLhsVWx1SIjbYVerhGFiAC BsFYRbSBCiGOoayuK6b6taI VPkzXMrUQE6HDaqy3awIHfx CNN2JVRpIjCmOCZnIA5SIbV uGHCoBJB2Dff5DpM8SVd2ST QAQfZqFwExTnW7OJT5KWCvM Mh5YOz7SRuRGyP5DSA7LyT6 WIAlPWW6KEYdRId5CSQpXQr xrbRmIRuwYrezQTydP99svI FyZCANClxwbGFpblxmczIyI EEuIFNpbnVzXHBhciANClxw XTEeWM0WRXXwDOqiZMFdUbE nsBCwZ4cpJYGhV09wg0FBh5 EfUP6KVIp3wmNpinqogZ4cH VZgdxXnLSmgT3HuHXPcOsYd PoVzNZz4FRCvOvPfm9xqdFE dTUacFTC3eRRfTLNaIPKoZD HtXF82DUiUDIWjikOsWQpba WVkaWNhbCByZWNvcmQgbnVt AnCwAQUoNSKcw2smlDAcSBM ryRP0OIUuqGTrbO84toHmg7 82ZV96dgDdmGHhr3QuI06kr WVudCBpZiBncmVhdGVyIHRo OI4jRGQeOP6fyX2qeCsoaDK tmJRlAPzxQ1ggoC39UKNoDm aadSByPeIzjcScGDTjLDB0L EEuDYQ4UOKeXXUixTYxG3ph MHtluFUel0BkbPSrgKwdrIA plQftss5hBJLgEudjqa3hCN C0uUjaA6iiu4NvBGVck0N8E YZsqgUkpNAtaALeBG10tSCk xEmgg7JyuTi0cLAsXUdzZES eINIpv2ych0helkhzVIPoPW hhzVQvK9N4hE2tKmjnHEIoJ PckcORmST9YQqOvKGRWNSMz biwgTUhTXHBhciANClxzYTM sBQDtaOKQf4NwJWYWIxcuZs BcZnMyMiANClxlcGljTmVzd RJgHiM4PKBohKVbAZB7OG8g lWegUJWhZ7JgI7NwmqB4QNS pszBUWhwgNAEwFX2VkS== SPECIAL STUDIES (test u3zfxYAgLJUeh7kvDPQcwHC code = 3376) uZzEwMzNcZnRuYmpcdWMxIH snfrRrTJhpf8IgN1XvEvSeQ FxhbnNpXGRlZmxhbmcxMDMz UCU0xzNxEHOaIPlaAVUtXKa wWu2jnOEbvFspEpQzSCChh2 adsvCVucldnFc8d1vzNYPsO eF4eAZmEHzhR7zkmaPmrOEk E4KsfFAbdIq5j0xcLmIwXeP 7fVDdYDdjY9xsaaFsuDPlAD DiLAp9jX73BDPekH4etBQbA GcftaZfFaO6XNajOOLtVcJ3 ZZPehZIwLCMyL5heVOGwRJj uRNMvHKhqyRXtKWK7qSrbq5 R6lHDggBQdkJtjFuVqMuDoV qJYm3IjGRf0yKhwL1NaDZRr EfA6tVZwMUKiFYtoNCLgUMM bzuH7dQdhnoXjd79qaUZuTT YwXGZzMjBcbGkwXHJpMCBDb 1PcgRcmUNS5zCq9rHbcHbty OMY6Bfq2YP1snr31wwr5yQc dPXDaqivfLgB7JPewRLFoou sgMXz4WZxzFXBfsIT4XDXla CDjG9OtTXQjDH8bxyk5JYN6 OUtoSHQzEyE5UGQqcQDgNNM ooBkwUBrjn808SCK4YpNqZX 9zM3Zdm5K7mQ2zdYBmSYVyq LHmViKrQSWhqs2sfAYhFRnr k5RiYYE9arV2wBIlzOFpBMG cPG23Scahh8AqEcnkr4NvL3 3qmEE8DPkzz7vmNV1tWdB0y hFxECnei4mecX4qPnQ4WSci EP1iDS6qVIFwtF8mqwqwRMF nYnJkcmhlYWRccGdicmRyZm 9sjElmHLQ8NXezE0sjuW6vK cD0FSuoM1uvcT5eCIa4LVpp kQJ5GEItdN3xEV6lwifot4w gWGdyUPhdKNCnfeJ2lzZ5CN ZmnHEiS3RfdX2uCUVzXV1qm jbro4ppMWD5CCfzVMCuHQE8 OwBnFIMwi1Qepem2VsLgn9F yfKHeGZuiV40ed920JWUmdj JkD4tzoUGgphjazFIbwjfrD KysppB7RZLrLLUgFEhzUYSv XGZzMjJcbGFuZzEwMzNcaGl jaFxmMVxkYmNoXGYxXGxvY2 itVwOxS5LiZAYsHtVcPStlL YoizFRboLYwiTC5vJ4sEQ7s QWCazMGiS0ZoGMZqmsUqfVI eEDL0eSWmwBRhOW8uMTxkoQ Ycv6emw6RiE0gtnKnnrXC8Z Y4zZDAuVRTtGIbzo5UlkM8g LlxwbGFpblxmMVxmczIyXGx vgukpGIBkYBtdW7bdJbFdYU AgoOybKTahv5IlTPDyGJDaM gdnfeTaJRk0spLeYSTvvdvg PSIleZuquU1kEkKnGwPhLkx xSR8gJGLjA6hatSNlBDJlFV WzN6faHuCagU8rbUmiPKksH qRkHjTcIgDCn036ij8zFNSm uOAlepENyXYxyN9eKLfzNTe bUKipeYEgRRmck6pqGAYih3 j6jQTcGCFxfbBhx6oqJCezn oBlVXYfjAOebMHdITZdu60w RCbefTzxdFoePOLao8BywLh uv3QbXcAkSNvyv2JpR12ldU JvbCBzbGlkZXMgcnVuIGFsb 73ku7paKWPxRtN2wULhcGS5 mJBlwPIxu5MvfLdfHQNzw9m nQXRiiq8jqiuvuORwh3EukK 5pbmcuIEludGVybmFsIHBvc 2o3zGZeEWJuNQXtSYvqjWx1 QDKzp604ii6logH9nVHeMSB 2YWlsYWJsZSBhcmUgZXZhbH VhdGVkXHBsYWluXGYxXGZzM jJcbGFuZzEwMzNcaGljaFxm BZrsSjUiXPHxKTanQ5ztXbU xH7HmLHNoIoJxzIOrN7hhgE FyXHBsYWluXGYxXGZzMjJcb GFuZzEwMzNcaGljaFxmMVxk GqEpLYLiOTdoQ4jcWiSkS3U yXGZzMjIgIFxwbGFpblxmMV xmczIyXGxhbmcxMDMzXGhpY 8wjCqYlZBOyoStyPZnfx2Pj VSUjSRMxAfplclNoFRk6mkW oXHBhclxwbGFpblxmMVxmcz KoKIflguuhBRLcZMsiH8liS mKlEKBmjUbrFOyjc5ApHMDq ENOiTgxjxlTeGWwmvDAly1x fs2IlP1dggTnqsYB9TZJhB5 yklOHspTG5WNZ7aQ4qBIntp eJmLYWnn8LoNMLrXXTkLnJ0 lT4kFUV8ZuCSkCkePVDdCGl uXGYxXGZzMjJcbGFuZzEwMz NcaGljaFxmMVxkYmNoXGYxX WtsA3atXtHuF8UsNJZiAyBm wFzfOSdmSWc1MprmgGZbeuf mMVxmczIyXGxhbmcxMDMzXG mmW7ppXoSoKYJxdXokILqoq 2NoXGYxXGNmMlxmczIyIHMg KMWlzTYixKAQDZ02GNNjHLW zsWnzoC5qrEZTTJXcrsR1o7 I4CGuxHAIeKMl5MCrjcdCmJ FDrsW4dGEMdUH6iNYe9nuPe ZFYfy3MwDA1lMNNjsJFtGKD 0NEGkr3XaP4Vlf1JmZIPuGB Kyoe0ccvHnKrHCzXVpUUKrc k50MVJgLY2tT1okBACeUHHo hjQxoITzh1KtCJNeoLL1lVK tJY4VVlNJk82tCRBwRVCSxy PaHYHlrAcgbQT4onV4yN4xR iBUaGUgRkRBIGhhcyBkZXRl cg1wshJgRLPqVNJsk6CigUG ebGGrcdOyX3Ugh1RcDLSybi 75SPbsmAIrrm51VL2dO7Qbs 2QnyQ9lXJtoPAUaj0ZrcITu hGDvWOEim6EqK2efgdvzVLa tbCJxdV5qYGMbYOw2MPOwf0 LqJSAad3KfEkHkjiSnBPXbV OVbVBNoqC45XQQ3oBivhRgm jvPxFN6aTUNiguSkYVAbDUI ozD6kINovzzDvCHTgirP8l5 J7BDbzLJVwilEwTcakLWF4p vTuleL5jOAoT8wvaxrcLGlc CPWmn1LkoH4poVZNuBZjp9O nmAYkuIAFnTAjIS6bylSkLY 2uXLJ5YBufWEOJJZKdJDdqZ KImEPU3YPcoVmmtAFF0dtPj VQFbb6RpSZlbF7ryT66yhPq ifSc9hYJutHobwQPpzSKbKJ ZbbtD7n5F4WQXtv0NgursxF HBsYWluXGYyXGZzMjJcbGFu ZzEwMzNcaGljaFxmMlxkYmN bYJYrLPycV5paTeZwVrZxJs uzUTH9wB== Gross assessment was [facility]. [place] performed at ([facility], code = 2777) Department of Pathology, [address] [place] [address], [place] [address], Technical component [facility] was performed at ([facility], code = 2778) Department of Pathology, [address] [place] [address], Professional component [facility] [place] ([facility], code = 2779) Department of Pathology, [address] [place] [address], [facility] [id number] 19:18:04Surgical Pathology Report Case: [id number] Authorizing Provider: Lina Light MD Collected: 03/07/2023 02:57 PM Ordering Location: [facility] OT PERIOPERATIVE Received: 03/08/2023 08:36 AM SERVICES Pathologist: Eric Snyder MD Specimen: Sinus, BILATERAL SINUS CONTENTS PLEASE COMMENT IF GREATER THAN 10EUSINOPHILS PER HIGH POWER FIELD SINUS TISSUE, RIGHT, ENDOSCOPIC SINUS SURGERY - CHRONIC SINUSITIS WI TH INCREASED EOSINOPHILS (SEE COMMENT) Signing Pathologist Direct Phone Line: [phone] signed by Eric Snyder MD on 03/15/2023 at 7:18 PMIncreased eosinophils are seen, up to 150 eosinophils per high-power field in some areas.[address], [id number] maxillary sinusitis, chronic ethmoid sinusitis, chronic frontal sinusitisSinus contents performedA. SinusReceived fresh labeled with the patient's name, medical record number and "sinus, bilateral sinus contents please comment if greater than 10 eosinophils per high power field"" is a 2.5 x 1.5 x 0.5 cm aggregate of multiple pink-red fibrocartilaginous tissue fragments entirely submitted in A1, following decalcification.Cleve García interpretation of this case included the use of immunohistochemistry or special stains.Control Slides Examined: In-house known positive controls were evaluated along with the test tissue. These control slides run alongside of the patients sample show appropriate staining. Internal positive and negative controls when available are evaluated Immunohistochemistry technical testing was performed at [facility], Pathology Laboratory where it was developed and its performance characteristics were determined. It has not been cleared or approved by the U.S. Food and Drug Administration. The FDA has determined that such clearance or approval is not necessary. The test is used for clinical purposes. It should not be regarded as investigational or for research. This laboratory is certified under the Clinical Laboratory Improvement Amendments of 1988 (CLIA-88) as qualified to perform high complexity clinical laboratory testing.[facility], Department of Pathology,[address] [place] [address], [facility], Department[facility]ology, [address] [place] [address], [facility], [address] [place] [address], Kkrvbqqoq [id number] 00:10:27 Test Item Value Reference Range Interpretation Comments Result (test code = 2+ Anaerobic A * - Cuti bacterium 6463-4) gram positive avidum bacilli Lab Interpretation Abnormal (test code = 64147-2) [facility] [id number] 00:10:27 Test Item Value Reference Range Interpretation Comments Result (test code = 2+ Anaerobic A * - Cuti bacterium 6463-4) gram positive avidum bacilli Lab Interpretation Abnormal (test code = 55800-8) [facility] [id number] 00:10:27 Test Item Value Reference Range Interpretation Comments Result (test code = 2+ Anaerobic A * - Cuti bacterium 6463-4) gram positive avidum bacilli Lab Interpretation Abnormal (test code = 29902-2) [facility] [id number] 00:10:27 Test Item Value Reference Range Interpretation Comments CULTURE (BEAKER) A 2+ Anaerobi c gram positive (test code = 1095) bacilli* - Cutibacterium avidum Surgically obtained culture + gram [id number] 13:56:31 Test Item Value Reference Range Interpretation Comments Result (test code = See comment 6463-4) Gram Stain Result No organisms seen (test code = 1123) KRISTI (test code = 2+ Normal respiratory KRISTI) [facility] [id number] 13:56:31 Test Item Value Reference Range Interpretation Comments Result (test code = See comment 6463-4) Gram Stain Result No organisms seen (test code = 1123) KRISTI (test code = 2+ Normal respiratory KRISTI) [facility] + gram [id number] 13:56:31 Test Item Value Reference Range Interpretation Comments Result (test code = See comment 6463-4) Gram Stain Result No organisms seen (test code = 1123) KRISTI (test code = 2+ Normal respiratory KRISTI) [facility] + GRAM [id number] 13:56:31 Test Item Value Reference Range Interpretation Comments CULTURE (BEAKER) (test code See comment = 1095) GRAM STAIN RESULT (BEAKER) <1+ WBCs (test code = 1123) GRAM STAIN RESULT (BEAKER) No organisms seen (test code = 233886) 2+ Normal respiratory joey present- CT MAXIFAC W/O [id number] 15:05:00 Name: ADINA HENRY [facility] : 1965 Age/S: 54 / F [address] [place] [address] Unit #: [id number] Loc: [place] [address] Phys: Toney Cuevas MD Acct: [id number] Dis Date: Status: REG CLI PHONE #: [phone] Exam Date: 10/21/2019 1417 FAX #: [phone] Reason: J32.9, CHRONIC SINUSITIS, UNSPECIFIED. EXAMS: CPT CODE: [id number] CT MAXIFAC W/O CONTRAST 07751 CT sinuses without contrast10/21/2019 HISTORY: Chronic sinusitis. PROCEDURE: 2 mm axial [...] sphenoid sinus, and bilateral ethmoid sinuses. 2. Nasalseptal deviation. SL: [id number] at 1271 Reported and signed by: Robson Brown M.D. PAGE 1 Signed Report (CONTINUED) Name: ADINA HENRY [facility] : 1965 Age/S: 54 / F [address] [place] [address] Unit #: [id number] Loc: [place] [address] Phys: Toney Cuevas MD Acct: [id number] Dis Date: Status: REG CLI PHONE #: [phone] Exam Date: 10/21/2019 1417 FAX #: [phone] Reason: J32.9, CHRONIC SINUSITIS, UNSPECIFIED. EXAMS: CPT CODE: [id number] CT MAXIFAC W/O CONTRAST 57753 (Continued) CC: Dante Murrieta Jr, MD Technologist:RT Laila(R)(CT) CTDI: DLP: Trnscb Date/Time: 10/21/2019 (1505) [email or web address] Orig Print D/T: S: 10/21/2019 (8491) PAGE 2 Signed Report
[2023-04-17 13:17] LABS: Absolute Lymphocytes (CBC) 1.9 K/uL (0.7-4.9); Hematocrit 42.2 % (36.0-45.0); Lymphocytes % 22.3 % (15.3-44.8); RBC Red Blood Cell Count 4.49 M/uL (3.86-4.86)
[2023-04-17 13:20] LABS: Urine Bilirubin NEGATIVE (Negative); Urine Blood Negative (Negative); Urine Clarity Clear (Clear); Urine Color Light-Yellow (Yellow); Urine Glucose NEGATIVE (Negative); Urine Protein NEGATIVE (Negative); Urine Urobilinogen Normal (Normal); Urine pH 5.5 (5.0-7.0)
[2023-04-17 13:21] LABS: Specific Gravity 1.009 (1.005-1.030)
[2023-04-17] MEDS ORDERED: FENTANYL CITR 100 MCG/2 ML ONE (13:22)
[2023-04-17] MEDS ORDERED: CEFTRIAXONE 1000 MG/VIAL ONE (13:22)
[2023-04-17] MEDS ORDERED: KETOROLAC 30 MG/ML INJ ONE (13:22)
[2023-04-17] MEDS ORDERED: ONDANSETRON 4 MG/2 ML VIAL ONE (13:22)
[2023-04-17] MEDS ORDERED: NA CHLORIDE 0.9% 1,000 ML ONE (13:23)
--- NOTE | 2023-04-17 13:25 | RAD REPORT ---
EXAM DESCRIPTION: CT - Sinus Wo Cont - 04/17/2023 1:08 pm CLINICAL HISTORY: headache Headache, drowsiness COMPARISON: Sinus Wo Cont dated 01/25/2023; Head Brain W/Wo Con dated 02/04/2019 TECHNIQUE: Axial 2 mm thick images of the paranasal sinuses were obtained. Coronal and sagittal refo rmatted images were reviewed. All CT scans are performed using dose optimization technique as appropriate and may include automated exposure control or mA/KV adjustment according to patient size. FINDINGS: Postsurgical changes of previous bilateral uncinectomy identified. There is moderate mucop eriosteal thickening involving both maxillary antra, greater on the left. Mild mucoperiosteal thicken ing of both frontal sinuses and anterior ethmoid air cells. Mild fluid is also seen in the sphenoid sinus. Both mastoid air cells are well aerated and clear. No skull base abnormality. IMPRESSION: Postsurgical changes are present of bilateral uncinectomy. Moderate multifocal paranasa l sinus thickening is present.
--- NOTE | 2023-04-17 13:29 | EDPHYS ---
Physician Documentation [facility] Name: Melba Henry Age: 58 yrs Sex: Female : 1965 Arrival Date: 04/17/2023 Time: 11:39 Bed 3 Private MD: SAADIA Physician Jorge Serrato HPI: 04/17 13:05 This 58 yrs old Female presents to ER via Ambulatory with complaints of mohini Headache, Blurred Vision, Low Back Pain. 13:05 The patient complains of pain to the forehead, right cheek, nose and left cheek. The mohini patient describes the headache as aching. Onset: The symptoms/episode began/occurred 5 day(s) ago. Associated signs and symptoms: The patient has no apparent associated signs or symptoms. Severity of symptoms: At its worst the pain was mild, moderate, in the emergency department the pain is unchanged. Headache History: Denies prior headaches. The symptoms are alleviated by nothing. the symptoms are aggravated by nothing. The patient has not experienced similar symptoms in the past. Historical: - Allergies: 11:59 NKDA; me1 - Home Meds: 11:59 Lorazepam Oral [Active]; progesterone [Active]; me1 - PMHx: 11:59 chronic sinusitis; me1 - PSHx: 11:59 sinus surgery; breast augmentation; abdominoplasty; Lumpectomy of breast; me1 - Immunization history:: Adult Immunizations up to date. - Social history:: Smoking status: Patient/guardian denies using tobacco, but has a distant history of tobacco abuse. - Family history:: not pertinent. ROS: 13:05 Constitutional: Negative for fever, chills, and weight loss, Eyes: Negative for injury, mohini pain, redness, and discharge, Neck: Negative for injury, pain, and swelling, Cardiovascular: Negative for chest pain, palpitations, and edema, Respiratory: Negative for shortness of breath, cough, wheezing, and pleuritic chest pain, Abdomen/GI: Negative for abdominal pain, nausea, vomiting, diarrhea, and constipation, Back: Negative for injury and pain, : Negative for injury, bleeding, discharge, and swelling, MS/Extremity: Negative for injury and deformity, Skin: Negative for injury, rash, and discoloration, Neuro: Negative for headache, weakness, numbness, tingling, and seizure, Psych: Negative for depression, anxiety, suicide ideation, homicidal ideation, and hallucinations, Allergy/Immunology: Negative for hives, rash, and allergies, Endocrine: Negative for neck swelling, polydipsia, polyuria, polyphagia, and marked weight changes. 13:05 ENT: Positive for rhinorrhea, sinus congestion. Exam: 13:05 Constitutional: This is a well developed, well nourished patient who is awake, alert, mohini and in no acute distress. Eyes: Pupils equal round and reactive to light, extra-ocular motions intact. Lids and lashes normal. Conjunctiva and sclera are non-icteric and not injected. Cornea within normal limits. Periorbital areas with no swelling, redness, or edema. Neck: Trachea midline, no thyromegaly or masses palpated, and no cervical lymphadenopathy. Supple, full range of motion without nuchal rigidity, or vertebral point tenderness. No Meningismus. Chest/axilla: Normal chest wall appearance and motion. Nontender with no deformity. No lesions are appreciated. Cardiovascular: Regular rate and rhythm with a normal S1 and S2. No gallops, murmurs, or rubs. Normal PMI, no JVD. No pulse deficits. Respiratory: Lungs have equal breath sounds bilaterally, clear to auscultation and percussion. No rales, rhonchi or wheezes noted. No increased work of breathing, no retractions or nasal flaring. Abdomen/GI: Soft, non-tender, with normal bowel sounds. No distension or tympany. No guarding or rebound. No evidence of tenderness throughout. Back: No spinal tenderness. No costovertebral tenderness. Full range of motion. Skin: Warm, dry with normal turgor. Normal color with no rashes, no lesions, and no evidence of cellulitis. MS/ Extremity: Pulses equal, no cyanosis. Neurovascular intact. Full, normal range of motion. Neuro: Awake and alert, GCS 15, oriented to person, place, time, and situation. Cranial nerves II-XII grossly intact. Motor strength 5/5 in all extremities. Sensory grossly intact. Cerebellar exam normal. Normal gait. Psych: Awake, alert, with orientation to person, place and time. Behavior, mood, and affect are within normal limits. 13:05 Head/face: Noted is no obvious of injury or deformity except MAXILLARY PAIN ON PERCUSSION. Vital Signs: 11:59 BP 116 / 79; Pulse 69; Resp 18; Temp 97.7(O); Pulse Ox 100% on R/A; Weight 56.7 kg; me1 Height 5 ft. 1 in. ; 14:00 BP 126 / 74; Pulse 72; Resp 16; Pulse Ox 100% on R/A; db 11:59 Body Mass Index 23.62 (56.70 kg, 154.94 cm) [facility] MDM: 11:43 Patient medically screened. [facility] 04/17 12:25 Order name: CBC with Diff; Complete Time: 13:26 [facility] 04/17 12:25 Order name: Comprehensive Metabolic Panel [facility] 04/17 12:25 Order name: Urinalysis w/ reflexes; Complete Time: 13:26 [facility] 04/17 12:25 Order name: PREGU; Complete Time: 13:26 [facility] 04/17 12:29 Order name: Sinus Wo Cont; Complete Time: 13:26 EDMS Administered Medications: 13:25 Drug: NS 0.9% IV 1000 ml Route: IV; Rate: 1 bolus; Site: left forearm; ll1 14:13 Follow up: Response: No adverse reaction; IV Status: Completed infusion; IV Intake: db 1000ml 13:25 Drug: Rocephin IV 1 grams Route: IV; Rate: per protocol; Site: left forearm; ll1 14:13 Follow up: Response: No adverse reaction; IV Status: Completed infusion; IV Intake: db 100ml 13:25 Drug: Ketorolac IVP 30 mg Route: IVP; Site: left forearm; ll1 14:13 Follow up: Response: No adverse reaction db 13:25 Drug: Ondansetron IVP 4 mg Route: IVP; Site: left forearm; ll1 14:12 Follow up: Response: No adverse reaction db 13:25 Not Given (Patient Refused): fentaNYL (PF) IVP 50 mcg IVP once ll1 13:57 Drug: Amoxicillin-Clavulanate PO 875 mg Route: PO; bp 13:57 Follow up: Response: No adverse reaction bp Disposition Summary: 04/17/23 13:28 Discharge Ordered Location: Home mohini Problem: new mohini Symptoms: have improved mohini Condition: Stable mohini Diagnosis - Acute sinusitis, unspecified mohini - Chronic sinusitis, unspecified mohini Followup: mohini - With: Private Physician - When: 2 - 3 days - Reason: Recheck today's complaints, Continuance of care, Re-evaluation by your physician Followup: mohini - With: Tona Burns MD - When: 2 - 3 days - Reason: Recheck today's complaints, Re-evaluation by your physician Discharge Instructions: - Discharge Summary Sheet mohini - Sinusitis, Adult mohini - Sinusitis, Adult, [id number] [facility] Forms: - Medication Reconciliation Form mohini - Thank You Letter mohini - Antibiotic Education mohini - Prescription Opioid Use mohini - Patient Portal Instructions [facility] Prescriptions: - acetaminophen-codeine 300-30 mg Oral tablet - take 2 tablet by ORAL route every 6 hours; 20 tablet; Refills: 0, Product [facility] Selection Permitted - Augmentin 875-125 mg Oral Tablet - take 1 tablet by ORAL route every 12 hours for 14 days; 28 tablet; Refills: 0, [facility] Product Selection Permitted - Medrol (Danilo) 4 mg Oral Tablets, Dose Pack - take 1 tablet by ORAL route as directed - follow package instructions; 1 [facility] packet; Refills: 0, Product Selection Permitted Signatures: Dispatcher [employer] Jorge Naranjo MD MD cha Peltier, Brian, RN RN Irineo Kerr RN RN ll1 Ira Granda RN RN me1 Candace Jones RN db
--- NOTE | 2023-04-17 13:29 | ER ---
Nurse's Notes [facility] Name: Melba Henry Age: 58 yrs Sex: Female : 1965 Arrival Date: 04/17/2023 Time: 11:39 Bed 3 Private MD: Diagnosis: Acute sinusitis, unspecified;Chronic sinusitis, unspecified Presentation: 04/17 11:55 Chief complaint: Patient states: headache, blurred vision, lower back pain. Coronavirus me1 screen: Vaccine status: Patient reports receiving the 2nd dose of the covid vaccine. At this time, the client does not indicate any symptoms associated with coronavirus-19. Ebola Screen: No symptoms or risks identified at this time. Initial Sepsis Screen: Does the patient meet any 2 criteria? No. Patient's initial sepsis screen is negative. Does the patient have a suspected source of infection? Yes: Other: sinus infection. patient has culture and sensitivity results from surgeon that did sinus sx one month ago and suggested that she come to the hospital. Risk Assessment: Do you want to hurt yourself or someone else? Patient reports no desire to harm self or others. Onset of symptoms is unknown. 11:55 Acuity: MEGHNA 3 me1 11:55 Method Of Arrival: Ambulatory ar1 Triage Assessment: 11:59 Headache History: Denies prior headaches. General: Appears uncomfortable, slender, well me1 groomed, well developed, well nourished, Behavior is calm, cooperative, appropriate for age, Reports having sinus sx about one month ago. Two weeks ago the surgeon swabbed sinuses and culture came back positive. Surgeon recommended that patient come to ER for IV abx. Pain: Complains of pain in headache behind eyes. EENT: Reports blurred vision pain sinus surgery one month ago. . Neuro: Level of Consciousness is awake, alert, obeys commands, Oriented to person, place, time, situation. Cardiovascular: Capillary refill < 3 seconds Patient's skin is warm and dry. Respiratory: Respiratory effort is even, unlabored, Respiratory pattern is regular, symmetrical. 14:12 Pain: Pain Pain began gradually, Also complains of no other associated symptoms. db Historical: - Allergies: 11:59 NKDA; me1 - Home Meds: 11:59 Lorazepam Oral [Active]; progesterone [Active]; me1 - PMHx: 11:59 chronic sinusitis; me1 - PSHx: 11:59 sinus surgery; breast augmentation; abdominoplasty; Lumpectomy of breast; me1 - Immunization history:: Adult Immunizations up to date. - Social history:: Smoking status: Patient/guardian denies using tobacco, but has a distant history of tobacco abuse. - Family history:: not pertinent. Screenin:11 [facility] ED Fall Risk Assessment (Adult) History of falling in the last 3 months, db including since admission No falls in past 3 months (0 pts) Confusion or Disorientation No (0 pts) Intoxicated or Sedated No (0 pts) Impaired Gait No (0 pts) Mobility Assist Device Used No (0 pt) Altered Elimination No (0 pt) Score/Fall Risk Level 0 - 2 = Low Risk Oriented to surroundings, Maintained a safe environment. Abuse screen: Denies threats or abuse. Denies injuries from another. Nutritional screening: No deficits noted. Tuberculosis screening: No symptoms or risk factors identified. Assessment: 12:20 Reassessment: Patient appears in no apparent distress at this time. Patient and/or db family updated on plan of care and expected duration. Pain level reassessed. Patient is alert, oriented x 3, equal unlabored respirations, skin warm/dry/pink. PATIENT AMBULATORY TO RESTROOM. General: Appears in no apparent distress. comfortable, Behavior is calm, cooperative. Pain: Complains of pain in forehead. Neuro: Level of Consciousness is awake, alert, obeys commands, Oriented to person, place, time, situation. 13:02 Reassessment: patient to CT. db 13:11 Reassessment: Patient appears in no apparent distress at this time. Patient and/or db family updated on plan of care and expected duration. Pain level reassessed. Patient is alert, oriented x 3, equal unlabored respirations, skin warm/dry/pink. PATIENT AMBULATORY TO RESTROOM. 14:11 Reassessment: Patient appears in no apparent distress at this time. Patient and/or db family updated on plan of care and expected duration. Pain level reassessed. Patient is alert, oriented x 3, equal unlabored respirations, skin warm/dry/pink. Patient states feeling better. Patient states symptoms have improved. Vital Signs: 11:59 BP 116 / 79; Pulse 69; Resp 18; Temp 97.7(O); Pulse Ox 100% on R/A; Weight 56.7 kg; me1 Height 5 ft. 1 in. ; 14:00 BP 126 / 74; Pulse 72; Resp 16; Pulse Ox 100% on R/A; db 11:59 Body Mass Index 23.62 (56.70 kg, 154.94 cm) me1 ED Course: 11:41 Patient arrived in ED. rg4 11:43 Jorge Serrato MD is Attending Physician. mohini 11:47 Robson Monreal, DAVID is Primary Nurse. bp 11:57 Triage completed. me1 12:39 Missed attempt(s): 22 gauge in right antecubital area. Bleeding controlled, band aid ll1 applied, catheter tip intact. 13:02 Inserted saline lock: 22 gauge in left forearm, using aseptic technique. Blood bp collected. 13:09 PREGU Sent. bp 13:09 Urinalysis w/ reflexes Sent. bp 13:09 Comprehensive Metabolic Panel Sent. bp 13:09 CBC with Diff Sent. bp 13:10 Sinus Wo Cont In Process Unspecified. EDMS 13:11 Patient has correct armband on for positive identification. Bed in low position. Call db light in reach. Side rails up X 1. 13:28 Tona Burns MD is Referral Physician. mohini 14:11 No provider procedures requiring assistance completed. IV discontinued, intact, db bleeding controlled, No redness/swelling at site. 14:11 Provided Education on: DISCHARGE. db 14:12 Arm band placed on Patient placed. db Administered Medications: 13:25 Drug: NS 0.9% IV 1000 ml Route: IV; Rate: 1 bolus; Site: left forearm; ll1 14:13 Follow up: Response: No adverse reaction; IV Status: Completed infusion; IV Intake: db 1000ml 13:25 Drug: Rocephin IV 1 grams Route: IV; Rate: per protocol; Site: left forearm; ll1 14:13 Follow up: Response: No adverse reaction; IV Status: Completed infusion; IV Intake: db 100ml 13:25 Drug: Ketorolac IVP 30 mg Route: IVP; Site: left forearm; ll1 14:13 Follow up: Response: No adverse reaction db 13:25 Drug: Ondansetron IVP 4 mg Route: IVP; Site: left forearm; ll1 14:12 Follow up: Response: No adverse reaction db 13:25 Not Given (Patient Refused): fentaNYL (PF) IVP 50 mcg IVP once ll1 13:57 Drug: Amoxicillin-Clavulanate PO 875 mg Route: PO; bp 13:57 Follow up: Response: No adverse reaction bp Medication: 14:11 VIS not applicable for this client. db Intake: 14:13 IV: 100ml; Total: 100ml. db 14:13 IV: 1000ml; Total: 1100ml. db Outcome: 13:28 Discharge ordered by MD. rajan 14:09 Discharged to home ambulatory. db 14:09 Condition: stable 14:09 Discharge instructions given to patient, Instructed on discharge instructions, follow up and referral plans. Prescriptions given X 3. 14:13 Patient left the ED. db Signatures: Dispatcher [employer] Jorge Naranjo MD MD cha Garcia, Rubi rg4 Robson Monreal RN Irineo Gusman RN RN ll1 Candace Jones RN RN Ira Cárdenas RN RN me1
[2023-04-17 13:43] LABS: AST/SGOT 16 U/L (15-37); Albumin 3.7 g/dL (3.4-5.0); Alkaline Phosphatase 69 U/L (45-117); BUN Blood Urea Nitrogen 8 mg/dL (7-18); Bicarbonate 22 mEq/L (21-32); Bilirubin Total 0.6 mg/dL (0.2-1.0); Glomerular Filtration Rate 104 ml/min (=/>90); Glucose Level 81 mg/dL (74-106); Potassium 3.9 mEq/L (3.5-5.1); Protein, Total 6.9 g/dL (6.4-8.2); Sodium Level 136 mEq/L (136-145)
[2023-04-17 13:45] LABS: ALT/SGPT < 10 U/L (13-56)
[2023-04-17] MEDS ORDERED: AMOX/K CLAV 875 MG TAB ONE (14:03)
[2023-04-17 14:40] VITALS: TEMP 97.7; O2SAT 100
[2023-04-17 14:43] VITALS: BP 126/74
== END 2023-04-17 14:13 | disposition home or self-care (01) ==
LOC: ER 11:39
DX: J32.9 Chronic sinusitis, unspecified (principal); Z98.82 Breast implant status
CPT/HCPCS: 85025; 36415; 81025; 81003; 80053; 70486; J2405; J7030; J0696; J3010

== ENCOUNTER 2023-05-14 07:30 | Day surgery (SDC) | payer OTHER ==
[2023-05-14] MEDS: Ringers Lactate 1,000 ML IV ONE ×2 (08:05→08:57)
[2023-05-14] MEDS ORDERED: propofoL 200 MG/20 ML VIAL IV ONE (08:53)
[2023-05-14] MEDS ORDERED: LIDOCAINE 1% MPF 5 ML VIAL ONE (08:53)
[2023-05-14 10:02] VITALS: TEMP 98.3; O2SAT 100
[2023-05-14 10:03] VITALS: BP 105/59
== END 2023-05-14 09:50 | disposition home or self-care (01) ==
LOC: OR 07:30
PROVIDERS: ATTEND Internal Medicine Gastroenterology
PROC: 0DBE8ZX Excision of Large Intestine, Via Natural or Artificial Opening Endoscopic, Diagnostic (ICD-10-PCS; principal; 2023-05-14 08:30)
DX: K59.1 Functional diarrhea (principal); E73.9 Lactose intolerance, unspecified; K57.30 Diverticulosis of large intestine without perforation or abscess without bleeding; K64.8 Other hemorrhoids; Z86.010 Personal history of colon polyps
CPT/HCPCS: 88305; 45380; J2704; J2001; J7120

== ENCOUNTER 2025-02-05 15:50 | Emergency (ER) | payer OTHER ==
--- NOTE | 2025-02-05 17:54 | RAD REPORT ---
EXAMINATION: XR LEFT ANKLE CLINICAL INDICATION: Female, 59 years old. PAIN TECHNIQUE: 3 view radiograph of the left ankle were obtained. COMPARISON: No prior exam. FINDINGS: Small plantar calcaneal spur. No fracture, dislocation or aggressive marrow pattern.
--- NOTE | 2025-02-05 17:54 | RAD REPORT ---
EXAMINATION: XR LEFT KNEE CLINICAL INDICATION: PAIN TECHNIQUE: Multiple projections of the left knee were obtained. COMPARISON: No prior exam. FINDINGS: Small / moderate suprapatellar joint effusion. Lipohemarthrosis is possible. No fracture, dislocation or aggressive marrow pattern. MRI follow-up suggested.
--- NOTE | 2025-02-05 18:39 | ER ---
Nurse's Notes [facility] Name: Melba Henry Age: 59 yrs Sex: Female : 1965 Arrival Date: 02/05/2025 Time: 15:50 Bed DX2 Private MD: Diagnosis: Fall on and from ladder, initial encounter;Effusion, left knee;Contusion of left knee, initial encounter;Sprain of other ligament of left ankle, initial encounter Presentation: 02/05 16:15 Chief complaint: Patient states: FELL OFF LADDER WHILE HANGING CURTAINS. REPORTS RT dd2 ELBOW PAIN AND LT LEG PAIN. Coronavirus screen: At this time, the client does not indicate any symptoms associated with coronavirus-19. Ebola Screen: No symptoms or risks identified at this time. Initial Sepsis Screen: Does the patient meet any 2 criteria? No. Patient's initial sepsis screen is negative. Does the patient have a suspected source of infection? No. Patient's initial sepsis screen is negative. Risk Assessment: Do you want to hurt yourself or someone else? Patient reports no desire to harm self or others. Onset of symptoms was February 05, 2025. 16:15 Method Of Arrival: Ambulatory dd2 16:15 Acuity: MEGHNA 4 dd2 Triage Assessment: 16:18 General: Appears in no apparent distress. uncomfortable, Behavior is calm, cooperative, dd2 appropriate for age. Pain: Complains of pain in right elbow and left leg. Musculoskeletal: Circulation, motion, and sensation intact. Range of motion: limited in left knee Swelling present in left knee. Injury Description: Abrasion sustained to right elbow and lateral aspect of left calf Bruise sustained to right elbow. Historical: - Allergies: 16:18 NKDA; dd2 - PMHx: 16:18 Anxiety; Chronic Sinusitis; Gastric Reflux; dd2 - PSHx: 16:18 abdominoplasty; breast augmentation; Lumpectomy of breast; sinus surgery; dd2 - Immunization history:: Adult Immunizations up to date. - Infectious Disease History:: Denies. - Social history:: Smoking status: Patient denies any tobacco usage or history of. Assessment: 18:55 Reassessment: Patient is alert, oriented x 3, equal unlabored respirations, skin aa5 warm/dry/pink. 19:00 Reassessment: Abrasions to left lower leg cleaned with saline, no active bleeding aa5 noted, dressed with Neosporin, non-adherent dressing and Kerlix, pt tolerated well. . 19:14 Reassessment: Patient is alert, oriented x 3, equal unlabored respirations, skin aa5 warm/dry/pink. Vital Signs: 16:15 BP 120 / 70; Pulse 78; Resp 16; Temp 98.1; Pulse Ox 100% ; Weight 61.23 kg; Height 5 dd2 ft. 1 in. ; Pain 6/10; 16:15 Body Mass Index 25.51 (61.23 kg, 154.94 cm) dd2 16:15 Pain Scale: Adult dd2 ED Course: 15:52 Patient arrived in ED. im 16:05 Ale Jefferson PA-C is PHCP. sb4 16:05 Jorge Serrato MD is Attending Physician. sb4 16:18 Triage completed. dd2 16:18 Arm band placed on right wrist. dd2 17:43 Knee Left 3 View XRAY In Process Unspecified. EDMS 17:43 Ankle Left 3 View XRAY In Process Unspecified. EDMS 18:38 Matteo Hernandes MD is Referral Physician. sb4 19:00 Crutch training done. Knee immobilizer applied on left knee. aa5 19:14 No provider procedures requiring assistance completed. Patient did not have IV access aa5 during this emergency room visit. Administered Medications: 18:55 Drug: HYDROcodone-acetaminophen PO 5 mg-325 mg 1 tabs PO once Route: PO; aa5 19:14 Follow up: Response: No adverse reaction aa5 Outcome: 18:39 Discharge ordered by . sb4 19:14 Patient left the ED. aa5 19:14 Discharged to home via wheelchair, with family, aa5 19:14 Condition: stable 19:14 Discharge instructions given to patient, Instructed on discharge instructions, follow up and referral plans. medication usage, Demonstrated understanding of instructions, follow-up care, medications, Prescriptions given X 3, Signatures: Dispatcher [employer] Najma Alejo, RN RN aa5 Ale Jefferson PA-C PA-C sb4 Dolores Bartlett im VERNA MARTINEZ RN RN dd2 Corrections: (The following items were deleted from the chart) 19:19 19:14 Patient left the ED. aa5 aa5
--- NOTE | 2025-02-05 18:39 | EDPHYS ---
Physician Documentation [facility] Name: Melba Henry Age: 59 yrs Sex: Female : 1965 Arrival Date: 02/05/2025 Time: 15:50 Bed DX2 Private MD: ED Physician Jorge Serrato HPI: 02/05 18:52 This 59 yrs old Female presents to ER via Ambulatory with complaints of Elbow Injury - sb4 right, Leg Injury - Left. 18:52 patient states that she slipped and fell off a step ladder earlier today. is sb4 complaining of pain in her left leg, worse in her knee. states she cannot put any weight on her leg. denies any head trauma. no other injuries. no numbness/tingling. abrasions on left lateral calf. Historical: - Allergies: 16:18 NKDA; dd2 - PMHx: 16:18 Anxiety; Chronic Sinusitis; Gastric Reflux; dd2 - PSHx: 16:18 abdominoplasty; breast augmentation; Lumpectomy of breast; sinus surgery; dd2 - Immunization history:: Adult Immunizations up to date. - Infectious Disease History:: Denies. - Social history:: Smoking status: Patient denies any tobacco usage or history of. ROS: 18:52 Constitutional: Negative for fever, chills, and weight loss, sb4 18:52 MS/extremity: Positive for injury or acute deformity, abrasion, decreased range of motion, pain, swelling, tenderness, per HPI, 18:52 All other systems are negative, Exam: 18:53 Constitutional: This is a well developed, well nourished patient who is awake, alert, sb4 and in no acute distress. Head/Face: Normocephalic, atraumatic. Eyes: Extra-ocular motions intact. Periorbital areas with no swelling, redness, or edema. ENT: Mucous membranes moist. Respiratory: No increased work of breathing, no retractions or nasal flaring. 18:53 Musculoskeletal/extremity: Joints: the left knee displays effusion, limited range of motion, pain at rest, painful range of motion, swelling, tenderness, the left ankle displays pain at rest, painful range of motion, tenderness, 18:53 Skin: injury, abrasion(s), moderate sized abrasion noted, of the lateral aspect of left calf, Vital Signs: 16:15 BP 120 / 70; Pulse 78; Resp 16; Temp 98.1; Pulse Ox 100% ; Weight 61.23 kg; Height 5 dd2 ft. 1 in. ; Pain 6/10; 16:15 Body Mass Index 25.51 (61.23 kg, 154.94 cm) dd2 16:15 Pain Scale: Adult dd2 MDM: 16:09 Medical Screening Exam initiated sb4 18:53 Differential diagnosis: dislocation, closed fracture, contusion, sprain, strain. Data sb4 reviewed: vital signs, nurses notes, radiologic studies, and as a result, I will discharge patient. Counseling: I had a detailed discussion with the patient and/or guardian regarding the historical points, exam findings, and any diagnostic results supporting the discharge/admit diagnosis, radiology results, the need for outpatient follow up, a orthopedic surgeon, to return to the emergency department if symptoms worsen or persist or if there are any questions or concerns that arise at home. 02/05 16:53 Order name: Knee Left 3 View XRAY; Complete Time: 17:55 sb4 02/05 16:53 Order name: Ankle Left 3 View XRAY; Complete Time: 17:55 sb4 02/05 18:38 Order name: Wound Care; Complete Time: 19:14 sb4 02/05 18:38 Order name: Knee Immobilizer; Complete Time: 19:14 sb4 02/05 18:38 Order name: Crutches; Complete Time: 19:14 sb4 Administered Medications: 18:55 Drug: HYDROcodone-acetaminophen PO 5 mg-325 mg 1 tabs PO once Route: PO; aa5 19:14 Follow up: Response: No adverse reaction aa5 Disposition Summary: 02/05/25 18:39 Discharge Ordered Notes: Location: Home sb4 Problem: new sb4 Symptoms: are unchanged sb4 Condition: Stable sb4 Diagnosis - Fall on and from ladder, initial encounter sb4 - Effusion, left knee sb4 - Contusion of left knee, initial encounter sb4 - Sprain of other ligament of left ankle, initial encounter sb4 Followup: sb4 - With: Matteo Hernandes MD - When: 1 week - Reason: Recheck today's complaints, Re-evaluation by your physician Discharge Instructions: - Discharge Summary Sheet sb4 - Musculoskeletal Pain sb4 - Ankle Sprain, [id number] sb4 - Knee Effusion, [id number] sb4 Forms: - Patient Portal Instructions sb4 - Leadership Thank You Letter sb4 Prescriptions: - Diclofenac Sodium 75 mg Oral Tablet Sustained Release - take 1 tablet ORAL route 2 times per day; 30 tablet; Refills: 0, Product sb4 Selection Permitted - Tramadol 50 mg Oral Tablet - take 1 tablet ORAL route every 8 hours as needed; 12 tablet; Refills: 0, sb4 Product Selection Permitted - methocarbamol 750 mg Oral tablet - take 1 tablet ORAL route 4 times per day; 20 tablet; Refills: 0, Product sb4 Selection Permitted Addendum: 02/08/2025 12:33 Co-signature as Attending Physician, Jorge Serrato MD I agree with the assessment and c jones plan of care. Signatures: Dispatcher [employer] EDJorge Pastrana MD MD cha Calderon, Audri, RN RN aa5 Ale Jefferson, PA-C PABryson [email or web address] VERNA MARTINEZ RN RN dd2 Corrections: (The following items were deleted from the chart) 02/05 17:41 16:41 Elbow Right 3 View+RAD.RAD.BRZ ordered. [facility]
[2025-02-05] MEDS ORDERED: HYDROCODONE/APAP 5/325 MG TAB ONE (18:52)
[2025-02-05 19:18] VITALS: BP 120/70; TEMP 98.1; O2SAT 100
== END 2025-02-05 19:14 | disposition home or self-care (01) ==
LOC: ER 15:50
DX: S93.492A Sprain of other ligament of left ankle, initial encounter (principal); S80.02XA Contusion of left knee, initial encounter; M25.462 Effusion, left knee; W11.XXXA Fall on and from ladder, initial encounter; Z98.82 Breast implant status
CPT/HCPCS: 99283